=== PATIENT | female | born 1945 | race African-American/Black ===

== ENCOUNTER 2017-04-10 11:08 | Emergency (ER) | payer MEDICARE ==
[~2017-04-10] VITALS: Ht 170.2 cm; Wt 81.6 kg
[~2017-04-10 11:08] MED LIST: ACET-868 PO; DOCU50LI PO; LORA2TAB95 PO; PALI117D IM; RISP1TAB7 PO; RISP2TAB5 PO; ZOLP10TA6 PO; [UNRECOGNIZED DRUG - CODE] PO
--- NOTE | 2017-04-10 11:20 | NUR ---
BIB SON C/O LEFT TOENAIL PAIN AND PAIN TO R SIDE OF THE FACE S/P GLF Addendum: 04/10/17 at 1125 by TSERING BIB SON C/O LEFT TOENAIL PAIN AND PAIN TO R SIDE OF THE FACE S/P GLF. SABINA GUERRERO, VSPerfecto, AWAITING MD NESS.
[2017-04-10 12:20] LABS: BASOPHILS % (AUTO) 0.2 % (0.0-2.0); EOSINOPHILS # (AUTO) 0.1 /CMM (0.0-0.7); EOSINOPHILS % (AUTO) 0.8 % (0.0-6.0); HEMATOCRIT 32 % (33-45); HEMOGLOBIN 10.7 g/dL (11.5-14.8); LYMPHOCYTES # (AUTO) 1.5 /CMM (0.8-4.8); LYMPHOCYTES % (AUTO) 18.8 % (20.0-44.0); MEAN CORPUSCULAR HEMOGLOBIN 29 PG (26.0-33.0); MEAN CORPUSCULAR HGB CONC 34 g/dl (31.0-36.0); MEAN CORPUSCULAR VOLUME 85 fL (82-100); MONOCYTES # (AUTO) 0.5 /CMM (0.1-1.30); MONOCYTES % (AUTO) 6.7 % (2.0-12.0); NEUTROPHILS # (AUTO) 6.1 /CMM (1.8-8.9); NEUTROPHILS % (AUTO) 73.5 % (43.0-81.0); PLATELET COUNT (AUTO) 178 /CMM (150-450); RDW COEFFICIENT OF VARIATION 14.1 (11.5-15.0); RED BLOOD CELL COUNT(AUTO) 3.74 MIL/uL (4.0-5.2); WHITE BLOOD COUNT (AUTO) 8.2 K/uL (4.3-11.0)
[2017-04-10 12:28] LABS: CALCIUM, SERUM 8.5 mg/dL (8.5-10.1); CARBON DIOXIDE 30 mmol/L (21-32); CHLORIDE 107 mmol/L (98-107); CREATININE 0.8 mg/dL (0.6-1.3); GLUCOSE 90 mg/dL (74-106); POTASSIUM 3.8 mmol/L (3.5-5.1); SODIUM SERUM 140 mmol/L (136-145); UREA NITROGEN, BLOOD 9 mg/dL (7-18)
[2017-04-10 12:37] LABS: TROPONIN I < 0.017 ng/mL (0.00-0.056)
--- NOTE | 2017-04-10 13:48 | NUR ---
CALLED JOSSIE HERZOG FOR EVAL
--- NOTE | 2017-04-10 14:30 | NUR ---
Patient is resting comfortably in bed with eyes closed. Easily aroused. VSS
--- NOTE | 2017-04-10 16:53 | NUR ---
SW received a call from crisis machine buffer MINO De informing SW that pt's son needs some resources for caregivers and board and care. JAYLEN met with pt's son Boni Glass and gave him [employer] booklet that has a list of assisted living, and board and care facilities. JAYLEN also gave him Jeri's board and care contact . Pt. was residing at [facility] in [place].
--- NOTE | 2017-04-10 17:15 | NUR ---
Patient is resting comfortably in bed with eyes closed. Easily aroused. VSS
--- NOTE | 2017-04-10 20:12 | NUR ---
ASSUMED CARE OF PT AT THIS TIME. MOVED TO ROOM 10. NO S/S OF TRAUMA NOTED. RESP EVEN AND UNLABORED. PLACED ON MONITOR AND UPDATED OF PLANS OF CARE. STILL UNABLE TO REACH SON DESPITE ATTEMPTED CALLS MADE. APS ALREADY NOTIFIED.
--- NOTE | 2017-04-10 21:12 | NUR ---
RESTING WITH NO S/S OF DISTRESS. RESP EVEN AND UNLABORED. STILL MONITORED.
--- NOTE | 2017-04-10 22:12 | NUR ---
NO NEW CHANGES REPORTED OR NOTED. RESP EVEN AND UNLABORED.
--- NOTE | 2017-04-10 23:27 | NUR ---
RESTING WITH NO S/S OF DISTRESS. RESP EVEN AND UNLABORED.
--- NOTE | 2017-04-11 00:37 | NUR ---
REMAINS RESTING WITH EYES CLOSED BUT AROUSABLE. AND NOTED. RESP EVEN AND UNLABORED.
--- NOTE | 2017-04-11 02:16 | NUR ---
REPOSITIONED FOR COMFORT
--- NOTE | 2017-04-11 03:03 | NUR ---
NO NEW CHANGES FROM PREVIOUS ASSESSMENT. RESP EVEN AND UNALBORED.
--- NOTE | 2017-04-11 04:10 | NUR ---
Resting in bed with eyes closed. Easily aroused. VSS
--- NOTE | 2017-04-11 06:19 | NUR ---
REMAINS RESTING WITH NO S/S OF DISTRESS. RESP EVEN AND UNLABORED.
--- NOTE | 2017-04-11 06:32 | NUR ---
Spoke with daughter over the phone, Jose Antoniosother Daughter [phone], she states she lives in [place], is unable to pick her up.
--- NOTE | 2017-04-11 07:11 | NUR ---
BREAKFAST TRAY ORDERED. PT INFORMED
--- NOTE | 2017-04-11 09:07 | NUR ---
CALLED ALEJO PLASCENCIA FOR ASSISTANCE WITH PLACEMENT
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
--- NOTE | 2017-04-11 11:34 | NUR ---
JAYLEN received a call from officer Van informing JAYLEN that they are going to stop by the pt's son Boni's home and will call back JAYLEN if needed. JAYLEN received a call from Sundar in intake informing JAYLEN that she called pt's son Boni and he liked the referral JAYLEN gave him yesterday on [facility] board and care and will be here between 1:00PM -2:30PM to pick pt. up and transport pt. to the facility. JAYLEN contacted [facility] board and care and spoke with Jeri to confirm if pt's son did come by to see the facility and if pt. is accepted. Jeri confirmed with JAYLEN that pt. is accepted into [facility] located at [address] [place] [address] in [place]. [place] and that son will be picking up pt. after 2PM today and transport her the the facility. Officer Van from [employer] contacted JAYLEN and JAYLEN updated him with the aforementioned information stating son will be picking pt. up this afternoon. MINO Finch in ED was informed as well of discharge plan. Addendum: 04/11/17 at 1143 by ALEJO YORK Officer Van from [employer] informed JAYLEN to contact SHANNON again if pt's son is a no show again.
--- NOTE | 2017-04-11 14:16 | NUR ---
JAYLEN spoke with MINO Smith in ED to inquire if pt's son Boni came by and picked up pt. to take to the board and care as he stated he would around 1:30-2PM. MINO Smith informed JAYLEN that he has not come by as of yet. JAYLEN contacted pt's son Boni and left him a voicemail message informing him that he needs to excelsior picker the pt. as he stated he would around 1:30PM-2:00PM.
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
--- NOTE | 2017-04-11 16:30 | NUR ---
PATIENT DISCHARGED TO [facility]. PICKED UP BY YUKI [phone]. PATIENT'S VSS.
[2017-04-11 16:37] VITALS: BP 128/70
== END 2017-04-11 16:38 | disposition home or self-care (01) ==
LOC: ER 11:09
DX: S91.202A Unspecified open wound of left great toe with damage to nail, initial encounter (principal); D64.9 Anemia, unspecified; E11.9 Type 2 diabetes mellitus without complications; F20.0 Paranoid schizophrenia; W18.30XA Fall on same level, unspecified, initial encounter; Y92.89 Other specified places as the place of occurrence of the external cause; Y93.89 Activity, other specified; Y99.8 Other external cause status; F29 Unspecified psychosis not due to a substance or known physiological condition
CPT/HCPCS: 11730; 36415; 80048-TC; 84484-TC; 85025-TC; A4606; A6402; G0480; J3490; Z7610

== ENCOUNTER 2017-06-28 22:03 | Emergency (ER) | payer MEDICARE ==
[~2017-06-28] VITALS: Ht 170.2 cm; Wt 81.6 kg
[2017-06-28 23:16] VITALS: BP 147/69
[2017-06-29] MEDS ORDERED: IBUPROFEN 400 MG TABLET ONE (02:10)
[2017-06-29] MEDS ORDERED: IBUPROFEN 400 MG TABLET PO ONE (02:30)
== END 2017-06-29 02:15 | disposition home or self-care (01) ==
LOC: ER 22:06
DX: M54.5 Low back pain (principal); E11.9 Type 2 diabetes mellitus without complications; F20.9 Schizophrenia, unspecified
CPT/HCPCS: 99282; A4606; Z7610

== ENCOUNTER 2017-08-29 10:33 | Inpatient (IN) | payer MEDICARE ==
[~2017-08-29] VITALS: Ht 162.6 cm; Wt 73.9 kg
--- NOTE | 2017-08-29 10:40 | NUR ---
[id number], BRA [address]: BYSTANDER CALLED 911 STATING PT COULD HAVE A SEIZURE. PT DENIES Hx OF SEIZURES. patient denies syncopal episode. BS IN FIELD BY EMS 92. Resp is even and unlabored with nad noted. awaiting md for eval.
--- NOTE | 2017-08-29 10:50 | NUR ---
R AC G 18 IV STARTED, BLOOD TESTS DRAWN AND SEND TO LAB.
[2017-08-29] MEDS ORDERED: IV NS 0.9% 500 ML BAG IV ONE (11:00)
[2017-08-29 11:05] LABS: BASOPHILS # (AUTO) 0.1 /CMM (0.0-0.2); BASOPHILS % (AUTO) 0.9 % (0.0-2.0); EOSINOPHILS # (AUTO) 0.1 /CMM (0.0-0.7); EOSINOPHILS % (AUTO) 2.5 % (0.0-6.0); HEMATOCRIT 32 % (33-45); LYMPHOCYTES # (AUTO) 1.8 /CMM (0.8-4.8); LYMPHOCYTES % (AUTO) 30.3 % (20.0-44.0); MEAN CORPUSCULAR HEMOGLOBIN 29 PG (26.0-33.0); MEAN CORPUSCULAR HGB CONC 34 g/dl (31.0-36.0); MEAN CORPUSCULAR VOLUME 84 fL (82-100); MONOCYTES # (AUTO) 0.4 /CMM (0.1-1.30); MONOCYTES % (AUTO) 7.5 % (2.0-12.0); NEUTROPHILS # (AUTO) 3.5 /CMM (1.8-8.9); NEUTROPHILS % (AUTO) 58.8 % (43.0-81.0); PLATELET COUNT (AUTO) 216 /CMM (150-450); RDW COEFFICIENT OF VARIATION 15.6 (11.5-15.0); RED BLOOD CELL COUNT(AUTO) 3.82 MIL/uL (4.0-5.2); WHITE BLOOD COUNT (AUTO) 5.9 K/uL (4.3-11.0)
[2017-08-29] MEDS ORDERED: LEVE250T2 PO (11:07)
[2017-08-29 11:15] LABS: CALCIUM, SERUM 8.8 mg/dL (8.5-10.1); CARBON DIOXIDE 25 mmol/L (21-32); CHLORIDE 106 mmol/L (98-107); GLUCOSE 82 mg/dL (74-106); POTASSIUM 3.8 mmol/L (3.5-5.1); SODIUM SERUM 140 mmol/L (136-145); UREA NITROGEN, BLOOD 11 mg/dL (7-18)
[2017-08-29 11:19] LABS: INR 0.99 (0.85-1.15)
[2017-08-29 11:21] LABS: ALANINE AMINOTRANSFERASE 33 U/L (12-78); ALBUMIN 3.7 g/dL (3.4-5.0); ALKALINE PHOSPHATASE 89 U/L (46-116); ASPARTATE AMINOTRANSFERASE 30 U/L (15-37); BILIRUBIN,DIRECT 0.1 mg/dL (0.0-0.2); BILIRUBIN,TOTAL 0.7 mg/dL (0.2-1.0); TOTAL PROTEIN, SERUM 7.5 g/dL (6.4-8.2)
[2017-08-29 11:23] LABS: TROPONIN I < 0.017 ng/mL (0.00-0.056)
--- NOTE | 2017-08-29 11:45 | NUR ---
TELE 108
--- NOTE | 2017-08-29 12:05 | NUR ---
[facility] PAGED, ISRAEL WONG SENIOR ACCOUNT DIRECTOR
--- NOTE | 2017-08-29 12:34 | NUR ---
REPORT GIVEN TO MINO MASON FOR [facility] TELE 108-1.
[2017-08-29] MEDS ORDERED: MAGNESIUM HYDROXIDE 30 ML UDC PO PRN (13:00)
[2017-08-29] MEDS ORDERED: Z GUARD REMEDY 2 OZ OINT TP PRN (13:00)
[2017-08-29] MEDS ORDERED: ONDANSETRON HCL/PF 4 MG/2 ML VIAL IVP PRN (13:00)
[2017-08-29] MEDS ORDERED: HYDROCODONE/APAP 5/325MG 1 EACH TABLET PO PRN (13:00)
[2017-08-29] MEDS ORDERED: ACETAMINOPHEN 325 MG TABLET PO PRN (13:00)
[2017-08-29] MEDS ORDERED: MAG HYDROX/AL HYDROX/SIMETH 30 ML UDC PO PRN (13:00)
[2017-08-29 13:22] VITALS: BP 165/78
[2017-08-29] MEDS: LEVETIRACETAM (250 MG) 250 MG TABLET PO SCH ×2 (13:38→20:54)
--- NOTE | 2017-08-29 17:39 | NUR ---
PATIENT REFUSES TO HAVE ECHO STUDY DONE ON HER.
--- NOTE | 2017-08-29 19:15 | NUR ---
RN OPENING NOTES PT RESTING IN BED. NO COMPLAINTS OF PAIN, DISTRESS OR SOB AT THIS TIME. PT HAS A R AC #18 INTACT AND PATENT. PT IS TELE MONITORED AT SINUS RHYTHM RATE OF 72. WILL CONTINUE TO MONITOR. SAFETY PRECAUTIONS IN PLACE.
[2017-08-29 20:00] VITALS: BP 158/63
--- NOTE | 2017-08-29 20:54 | NUR ---
RN NOTES PT REFUSED KEPPRA 100MG. PT STATED SHE DID NOT WANT TO TAKE ANY MEDICATION. EXPLAINED TO PT THE IMPORTANCE OF MEDICATION COMPLIANCE.
[2017-08-30] VITALS: BP 158/69
[2017-08-30 04:00] VITALS: BP 145/64
--- NOTE | 2017-08-30 05:16 | NUR ---
RN NOTES PT REFUSED MORNING LAB DRAW. CHARGE NURSE ERNST SPOKE WITH PT AND PT CONTINUED TO REFUSE.
--- NOTE | 2017-08-30 06:44 | NUR ---
RN CLOSING NOTES PT AWAKE AND RESTING IN BED. NO COMPLAINTS OF PAIN, SOB OR DISTRESS. PT CONTINUES TO STATE THAT SHE DID NOT HAVE A SEIZURE. ALL PT NEEDS MET. PT SLEPT WELL THROUGHOUT THE NIGHT. PT HAS A R AC #18, INTACT AND PATENT. PT REFUSED MEDICATIONS AND LAB DRAW THIS MORNING. WILL ENDORSE TO DAY SHIFT NURSE. SAFETY PRECAUTIONS IN PLACE. WILL ENDORSE TO DAY SHIFT NURSE FOR CONTINUITY OF CARE.
--- NOTE | 2017-08-30 07:21 | NUR ---
PRESS TENDER SHORT GOODS OPENING NOTE RECEIVED BEDSIDE SBAR REPORT ON THE PATIENT. PATIENT IS A/O X3, FORGETFUL OF SPECIFIC DATES. ASLEEP, EASILY AWAKEN IN BED. BED IS LOCKED, IN LOWEST POSITION, SIDE RAILS UP X3. PATIENT IS AMBULATORY. NO S/S OF DISCOMFORT/PAIN. CHEST IS RISING EQUALLY BILATERALLY. PATIENT IS ON ROOM AIR. CALL LIGHT WITHIN REACH. EDUCATED THE PATIENT TO USE THE CALL LIGHT TO CALL FOR ASSISTANCE. VERBALIZED UNDERSTAND. PATIENT REFUSED MORNING LABS STATING SHE DOES NOT WANT TO BE AT THE HOSPITAL AND WANTS TO GO HOME. WILL DISCUSS WITH THE PHYSICIAN. WILL CONTINUE TO ASSES/MONITOR THROUGHOUT THE SHIFT.
[2017-08-30 08:00] VITALS: BP 156/83
[2017-08-30] MEDS: LEVETIRACETAM (250 MG) 250 MG TABLET PO SCH ×2 (09:00→22:19)
--- NOTE | 2017-08-30 09:06 | NUR ---
PATIENT REFUSED CHEST X-RAY. RN AWARE.
--- NOTE | 2017-08-30 09:15 | NUR ---
PATIENT REFUSED X RAY
--- NOTE | 2017-08-30 09:36 | NUR ---
PATIENT REFUSED MEDS
--- NOTE | 2017-08-30 09:37 | NUR ---
PATIENT REFUSED ECHO
--- NOTE | 2017-08-30 10:00 | NUR ---
PATIENT REFUSED CT. DR. DOMINGO NOTIFIED.
--- NOTE | 2017-08-30 11:44 | NUR ---
SPOKE TO RECRUITING MANAGER. PER RECRUITING MANAGER CRISIS TEAM EVALUATION IS REQUIRED. CALLING PCP TO OBTAIN AN ORDER FOR PSYCH EVALUATION
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
--- NOTE | 2017-08-30 19:00 | NUR ---
RN NOTES: RECEIVED ASLEEP ON BED, ON SEMI FOWLERS KEPT IN COMFORTABLE POSITION, SEIZURE AND UNIVERSAL PRECAUTION OBSERVE, BED LOW AND LOCKED, CALL LIGHT WITHIN REACH, FALL AND SAFETY PRECAUTION OBSERVED AT ALL TIME, ON ROOM AIR, NO SOB NOTED UPON CHANGE OF SHIFT.KEPT ON CLOSE VISUAL CHECK.
--- NOTE | 2017-08-30 19:41 | NUR ---
MS RN CLOSING NOTE GAVE BEDSIDE SBAR REPORT ON THE PATIENT. PATIENT IS A/O X3, FORGETFUL OF SPECIFIC DATES. ASLEEP, EASILY AWAKEN IN BED. BED IS LOCKED, IN LOWEST POSITION, SIDE RAILS UP X3. PATIENT IS AMBULATORY. NO S/S OF DISCOMFORT/PAIN. CHEST IS RISING EQUALLY BILATERALLY. PATIENT IS ON ROOM AIR. CALL LIGHT WITHIN REACH. EDUCATED THE PATIENT TO USE THE CALL LIGHT TO CALL FOR ASSISTANCE. VERBALIZED UNDERSTAND. PATIENT REFUSED SOME TESTS AND ALL THE MEDICATIONS THROUGHIOUT THE SHIFT. AGREED TO ECHO . ECHO REORDERED AND OBTAINED. RESULT PENDING. ENDORSED TO THE YOUTH DEVELOPMENT PROFESSIONAL NURSE FOR JUSTYN.
[2017-08-30 20:00] VITALS: BP 142/62
--- NOTE | 2017-08-30 22:34 | NUR ---
RN NOTES; AWAKE IN BETWEEN, DUE MEDICATION GIVEN,NO PAIN OR DISCOMFORT, CONTINUE IN CLOSE VISUAL CHECK.CALL LIGHT WITHIN EASY REACH.
[2017-08-30 22:37] VITALS: BP 142/62
[2017-08-31 04:00] VITALS: BP 131/58
--- NOTE | 2017-08-31 05:49 | NUR ---
RN NOTES: AWAKE IN BETWEEN, WATCHING TV, NO SEIZURE NOTED IN THE BRIM WELT SEWING MACHINE OPERATOR.WILL CONTINUE TO MONITOR.
--- NOTE | 2017-08-31 06:38 | NUR ---
RN NOTES: ENDORSED FOR CONTINUITY OF CARE, PATIENT IS STABLE AND NOT IN RESPIRATORY DISTRESS.
[2017-08-31 08:00] VITALS: BP 137/67
[2017-08-31] MEDS: LEVETIRACETAM (250 MG) 250 MG TABLET PO SCH (08:54)
--- NOTE | 2017-08-31 09:00 | NUR ---
RN NOTE PTAOX3, BUT FORGETFUL, WAS CALM EARLIER UPON CHANGE OF SHIFT REPORT, BUT LATER ON SHE REFUSED KEPPRA SCHEDULED AT 0900, STATING AGITATEDLY "HOW COME I AM GOING THROUGH THIS, YOU PEOPLE DO NOT LIKE ME, LEAVE ME ALONE." WILL MONITOR PT, CALL LIGHT WITHIN REACH.
--- NOTE | 2017-08-31 15:17 | NUR ---
PATIENT REFUSING TO GO TO [facility],ON HOLD PER CRISIS TEAM,DR. LOBATO NOTIFIED WILL GIVE ZYPREXA IM ORDERED,PT. PACING BACK AND FORTH.
[2017-08-31] MEDS ORDERED: OLANZAPINE 10 MG VIAL IM ONE (15:30)
--- NOTE | 2017-08-31 15:40 | NUR ---
RN NOTE ZYPREXA WAS NOT GIVEN BECAUSE PT AGREED TO GO TO [facility], PT TRANFERRED TO ROOM 213-1. REPORT GIVEN TO RN. DISCHARGE INSTRUCTIONS GIVEN TO RN AT [facility].
[2017-08-31] MEDS ORDERED: ALLA266C2 TP (15:45)
[2017-08-31] MEDS ORDERED: ONDA4TAB5 PO (15:45)
[2017-08-31] MEDS ORDERED: MAG30ORA PO (15:45)
[2017-08-31] MEDS ORDERED: MAGN400O6 PO (15:45)
[2017-08-31] MEDS ORDERED: ACET-868 PO (15:45)
[2017-08-31] MEDS ORDERED: HYDR-552 PO (15:45)
== END 2017-08-31 15:24 | DRG 307 ==
LOC: ER 10:34 → TELE1 12:29 → MEDSG1 08-30 09:06
PROVIDERS: ADMIT Nurse Practitioner Acute Care; ATTEND Nurse Practitioner Acute Care
DX: I35.0 Nonrheumatic aortic (valve) stenosis (principal); E11.9 Type 2 diabetes mellitus without complications; D63.8 Anemia in other chronic diseases classified elsewhere; F20.9 Schizophrenia, unspecified; G40.909 Epilepsy, unspecified, not intractable, without status epilepticus; J45.909 Unspecified asthma, uncomplicated; Z59.0 Homelessness; Z79.899 Other long term (current) drug therapy
CPT/HCPCS: 36415; 80048-TC; 80076-TC; 82962-TC; 84484-TC; 85025-TC; 85730-TC; 87081-TC; 93307-TC; A4606; G0480; J3490; J7040; Z7610

== ENCOUNTER 2017-08-31 15:30 | Inpatient (IN) | payer MEDICARE ==
[~2017-08-31] VITALS: Ht 170.2 cm; Wt 70.8 kg
--- NOTE | 2017-08-31 13:45 | NUR ---
GPS/RN PATIENT ADMITTED ON A 5150 HOLD FOR GD UNDER THE CARE OF DR DR LOBATO AND DR BURNHAM. BOTH DR'S AWARE OF NEW ADMISSION, DR BURNHAM AWARE OF NEED TO RECONCILE MEDICATIONS IN SYSTEM. PER HOLD, PATIENT WAS REFUSING MEDS, REFUSING TREATMENT, REFUSING CARE, CONFUSED AND RESPONDING TO INTERNAL STIMULI. UPON FACE TO FACE ASSESSMENT PATIENT IS ALERT X 2, AGITATED, ANXIOUS, DISORGANIZED AND CONFUSED AT TIMES, TALKING TO SELF, RESPONDING TO INTERNAL STIMULI AND UNCOOPERATIVE. REFUSED SKIN ASSESSMENT X 3, EXPLAINED RISKS AND BENEFITS. PATIENT DENIES SI/HI AT THIS TIME, VITAL SIGNS STABLE, IN ROOM AT THIS TIME, NO MAJOR DISTRESS NOTED, FALL PRECAUTIONS IMPLEMENTED, ALL NEEDS ATTENDED, WILL CONTINUE TO MONITOR Q 15 MIN FOR SAFETY AND BEHAVIOR. Addendum: 08/31/17 at 1859 by MARIVEL HERNANDEZ RN SEIZURE PRECAUTIONS IMPLEMENTED
[~2017-08-31 15:30] MED LIST changes: -ACET-868 PO; -DOCU50LI PO; +LEVE250T2 PO; -LORA2TAB95 PO; -PALI117D IM; -RISP1TAB7 PO; -RISP2TAB5 PO; -ZOLP10TA6 PO; -[UNRECOGNIZED DRUG - CODE] PO
[2017-08-31] MEDS ORDERED: MAG30ORA PO (15:45)
[2017-08-31] MEDS ORDERED: HYDR-552 PO (15:45)
[2017-08-31] MEDS ORDERED: ACET-868 PO (15:45)
[2017-08-31] MEDS ORDERED: ONDA4TAB5 PO (15:45)
[2017-08-31] MEDS ORDERED: MAGN400O6 PO (15:45)
[2017-08-31] MEDS ORDERED: ALLA266C2 TP (15:45)
[2017-08-31 16:00] VITALS: BP 160/77
[2017-08-31] MEDS ORDERED: MAG HYDROX/AL HYDROX/SIMETH 30 ML UDC PO PRN ×2 (16:00→19:00)
[2017-08-31] MEDS ORDERED: MAGNESIUM HYDROXIDE 30 ML UDC PO PRN ×2 (16:00→19:00)
[2017-08-31] MEDS ORDERED: LORAZEPAM 0.5 MG TABLET PO PRN (16:00)
[2017-08-31] MEDS ORDERED: TEMAZEPAM 7.5 MG CAPSULE PO PRN (16:00)
[2017-08-31] MEDS ORDERED: ACETAMINOPHEN 325 MG TABLET PO PRN ×2 (16:00→19:00)
[2017-08-31] MEDS ORDERED: Z GUARD REMEDY 2 OZ OINT TP PRN (19:00)
[2017-08-31] MEDS ORDERED: HYDROCODONE/APAP 5/325MG 1 EACH TABLET PO PRN (19:00)
--- NOTE | 2017-08-31 19:40 | NUR ---
PT REFUSED KEPPRA 1,000MG PO. PT STATED "I DON'T NEED MEDICATION, I'M OKAY". OFFER 3X. EXPLAIN THE RISK AND BENEFITS, PT STILL REFUSED. WILL CONTINUE TO MONITOR.
[2017-08-31 20:00] VITALS: BP 151/76
[2017-08-31] MEDS ORDERED: LEVETIRACETAM (250 MG) 250 MG TABLET PO ONE (20:05)
[2017-08-31] MEDS: LEVETIRACETAM (250 MG) 250 MG TABLET PO SCH ×2 (20:07→21:00)
[2017-09-01 08:08] VITALS: BP 123/68
[2017-09-01] MEDS: LEVETIRACETAM (250 MG) 250 MG TABLET PO SCH ×2 (09:00→20:43)
--- NOTE | 2017-09-01 13:01 | NUR ---
GPS/RN PT CONSISTENTLY REFUSING MEDS AND MRSA SWAB.
[2017-09-01 16:44] VITALS: BP 132/60
[2017-09-01] MEDS: risperiDONE 1 MG TABLET PO SCH (17:00)
[2017-09-01] MEDS: BENZTROPINE MESYLATE (1 MG) 1 MG TABLET PO SCH (17:00)
--- NOTE | 2017-09-01 18:30 | NUR ---
GPS/RN PT REFUSED 1700 MEDS TODAY OFFERED X3
[2017-09-01 19:51] VITALS: BP 126/63
--- NOTE | 2017-09-01 20:19 | NUR ---
RN GPS NOTES PT. REFUSED WEEKLY SKIN REASSESSMENT PICTURES , ENCOURAGED X3 STILL REFUSED.
--- NOTE | 2017-09-01 20:43 | NUR ---
GPS/RN NOTES PT REFUSED 2100 MEDS, KEPPRA 1000 MG TODAY OFFERED X3 , ENCOURAGED FOR MEDS EXPLIANED RISKS AND BENEFITS , STILL REFUSED
--- NOTE | 2017-09-02 04:37 | NUR ---
GPS/RN TITUSS PT REFUSED TO TAKE RESTORIL 7.5 MG, OFFERED FOR INSOMNIA.
[2017-09-02 08:00] VITALS: BP 140/70
[2017-09-02] MEDS: LEVETIRACETAM (250 MG) 250 MG TABLET PO SCH ×2 (08:41→21:00)
[2017-09-02] MEDS: risperiDONE 1 MG TABLET PO SCH ×2 (08:41→16:59)
[2017-09-02] MEDS: BENZTROPINE MESYLATE (1 MG) 1 MG TABLET PO SCH ×2 (08:41→16:59)
--- NOTE | 2017-09-02 09:00 | NUR ---
GPS/RN PATIENT REFUSED MORNING MEDICATION X 3, INCLUDING KEPPRA 1000 MG EXPLAINED RISKS AND BENEFITS, CONTINUED TO REFUSE, WILL CONTINUE TO ENCOURAGE TO COMPLY WITH MD REGIMEN.
[2017-09-02 16:00] VITALS: BP 148/62
--- NOTE | 2017-09-02 16:59 | NUR ---
GPS/RN PATIENT REFUSED 1700 MEDICATION X 3, EXPLAINED RISKS AND BENEFITS, CONTINUED TO REFUSE, WILL CONTINUE TO ENCOURAGE TO COMPLY WITH MD REGIMEN.
--- NOTE | 2017-09-02 19:30 | NUR ---
GPS RN NOTE, RECEIVED PATIENT AWAKE AND IN BED, NO S/S OR COMPLAINTS OF PAIN AT THIS TIME. PATIENT IS DISPLAYING NO S/S OF APPARENT DISTRESS AT THIS TIME. PATIENT BREATHING IS UNLABORED WITH EQUAL RISE AND FALL OF THE CHEST. PATIENT IS ALERT AND ORIENTED X 1-2 ON ROOM AIR WITH A SPO2 OF 98%. PATIENT IS REFUSING MEDICATION, DISORGANIZED, ANXIOUS, CONFUSED AT TIMES, PARANOID, AND NEEDS REORIENTATION. PATIENT DENIES SUICIDE IDEATIONS AND HOMICIDAL IDEATIONS AT THIS TIME. PATIENT ASSISTED WITH TURNING AND REPOSITIONING Q2HR AND PRN FOR COMFORT AND CIRCULATION. PATIENT HAS NO NEEDS AT THIS TIME. PATIENT EDUCATED ON THE USE OF THE CALL DELEON. PATIENT SIDE RAILS ARE UP X 2, BED IS LOCKED AND LOW, AND I WILL CONTINUE TO MONITOR THIS PATIENT Q 15 MIN WITH THE HELP OF STAFF.
[2017-09-02 19:47] VITALS: BP 152/77
--- NOTE | 2017-09-02 21:53 | NUR ---
GPS RN NOTE, PATIENT REFUSED TO TAKE KEPPRA 1000 MG PO Q12HR. OFFERED KEPPRA THREE TIMES AND STILL PATIENT REFUSED STATING, " I JUST DON'T WANT ANY MEDICATION ". EDUCATED THIS PATIENT ON THE RISKS AND BENEFITS OF TAKING AND REFUSING AFOREMENTIONED MEDICATION. WILL CONTINUE TO MONITOR THIS PATIENT.
[2017-09-03 08:00] VITALS: BP 144/68
[2017-09-03] MEDS: BENZTROPINE MESYLATE (1 MG) 1 MG TABLET PO SCH ×2 (08:55→17:00)
[2017-09-03] MEDS: risperiDONE 1 MG TABLET PO SCH ×2 (09:00→17:00)
[2017-09-03] MEDS: LEVETIRACETAM (250 MG) 250 MG TABLET PO SCH ×2 (09:02→20:57)
--- NOTE | 2017-09-03 15:55 | NUR ---
Initial Discharge Plan: Patient is currently homeless. Patient stated that she had been living with her son before. Patient asked SW to call son. SW called and spoke with patient's son, Boni [phone]. Boni stated that he is patient's DPOA. SW asked Boni to bring in / fax paperwork, which Boni agreed to. Boni stated that he had placed his mother in a board and care and then she eloped from facility. Boni stated she had been missing. Boni stated that maybe a locked SNF is best for his mom before she is able to return a board and care or a lower level of care. SW to follow up with MD. YORK to arrange safe discharge plan. When SW spoke with patient, patient stated she wanted an apartment. SW became agitated when discussing placement and screamed at SW to leave her alone.
[2017-09-03 16:00] VITALS: BP 138/69
[2017-09-03 20:22] VITALS: BP 120/60
--- NOTE | 2017-09-03 21:00 | NUR ---
GPS RN NOTE: PATIENT TOOK 500MG OF KEPPRA, REFUSED AND WASTED THE OTHER 500MG OF KEPPRA. EXPLAINED THE RISK AND BENEFITS X 3 ATTEMPTS, PATIENT STILL REFUSED, WILL CONTINUE TO MONITOR [id number] FOR SAFETY
[2017-09-04 08:00] VITALS: BP 125/61
[2017-09-04] MEDS: BENZTROPINE MESYLATE (1 MG) 1 MG TABLET PO SCH ×3 (08:29→17:00)
[2017-09-04] MEDS: LEVETIRACETAM (250 MG) 250 MG TABLET PO SCH ×3 (08:29→21:00)
[2017-09-04] MEDS: risperiDONE 1 MG TABLET PO SCH ×3 (08:30→17:00)
--- NOTE | 2017-09-04 14:18 | NUR ---
Discharge Planning: SW spoke with patient today. Patient was calm and cooperative. Patient stated that she "wanted to think about" a SNF placement. Patient seemed to be more open to the idea. SW to follow up with patient.
--- NOTE | 2017-09-04 14:19 | NUR ---
JAYLEN was informed by MINO Moore that APS worker Eugenio was at the unit for patient and provided the worker's card to JAYLEN. JAYLEN called and left a voicemail for APS worker Eugenio, . In the voicemail, JAYLEN provided her direct contact information.
[2017-09-04 16:02] VITALS: BP 148/68
[2017-09-04] MEDS: OLANZAPINE 10 MG VIAL IM PRN (17:45)
[2017-09-04 20:40] VITALS: BP_SYST 116; BP_SYST 147; BP_DIAS 55; BP_DIAS 65
[2017-09-05 08:00] VITALS: BP 144/65
[2017-09-05] MEDS: BENZTROPINE MESYLATE (1 MG) 1 MG TABLET PO SCH ×2 (09:00→16:48)
[2017-09-05] MEDS: risperiDONE 1 MG TABLET PO SCH ×3 (09:00→16:48)
[2017-09-05] MEDS: LEVETIRACETAM (250 MG) 250 MG TABLET PO SCH ×2 (09:00→21:00)
--- NOTE | 2017-09-05 09:00 | NUR ---
GPS/RN PATIENT REFUSED RESPERDAL 1 MG AND CONGENTIN 1 MG X 3, EXPLAINED RISKS AND BENEFITS, CONTINUES TO REFUSE, ADMINISTERED ZYPREXA 2.5 MG IM ORDERED FOR REFUSAL.
[2017-09-05] MEDS: OLANZAPINE 10 MG VIAL IM PRN ×3 (09:10→18:03)
--- NOTE | 2017-09-05 09:54 | NUR ---
Discharge Planning: SW attempted to speak with patient regarding discharge plan. Patient stated that she does not want to speak with SW. SW stated that it is important and spoke with patient about SNF placement. Patient remained quiet and did not offer a verbal response, even when prompted for one. Patient avoided eye contact with SW and remained mute after her initial statement.
--- NOTE | 2017-09-05 13:25 | NUR ---
GPS/RN PATIENT REFUSED RESPERDAL 1 MG X 3, EXPLAINED RISKS AND BENEFITS, CONTINUES TO REFUSE, ADMINISTERED ZYPREXA 2.5 MG IM ORDERED FOR REFUSAL.
--- NOTE | 2017-09-05 15:52 | NUR ---
RN-CO: NOTIFIED DR OVALLE, REGARDING PATIENT'S BLOOD PRESSURE 196/131,HR 85. AWAITING TO CALL BACK. PATIENT IS AWAKE, AMBULATORY DENIED DISCOMFORTS.
--- NOTE | 2017-09-05 16:00 | NUR ---
GPS/RN PER DR OVALLE, NEW ORDER- HYDRALAZINE 25 MG Q 6 HR PRN FOR BP > 160.
[2017-09-05] MEDS ORDERED: hydrALAZINE HCL 25 MG TABLET PO PRN (16:30)
--- NOTE | 2017-09-05 17:00 | NUR ---
GPS/RN PATIENT REFUSED TO HAVE HER BP TAKEN X 3, EXPLAINED RISKS AND BENEFITS HOWEVER PATIENT IS ADAMANTLY REFUSING MEDICATIONS AND TREATMENT. OFFERED HYDRALAZINE X 3 FOR BP OF 193/131, PATIENT REFUSED, EXPLAINED RISKS AND BENEFITS, WILL CONTINUE TO ENCOURAGE TO COMPLY WITH MD REGIMEN AND TREATMENTS. AT THIS TIME PATIENT IS ALERT X 2 AND HAS NO VISIBLE S/S OF DISTRESS, BREATHING EVEN AND UNLABORED, WILL CONTINUE TO MONITOR.
[2017-09-05 20:00] VITALS: BP 155/95
--- NOTE | 2017-09-05 22:06 | NUR ---
GPS/DELIMER NOTES: PT. REFUSED HS LEVETIRACETAM 1000MG PO ORDERED. OFFERED 3X. EXPLAINED RISK AND BENEFITS. PT. STILL REFUSED. WILL CONTINUE TO MONITOR.
[2017-09-06 08:21] VITALS: BP 133/61
[2017-09-06] MEDS: LEVETIRACETAM (250 MG) 250 MG TABLET PO SCH ×2 (09:00→21:00)
[2017-09-06] MEDS: risperiDONE 1 MG TABLET PO SCH (09:00)
[2017-09-06] MEDS: BENZTROPINE MESYLATE (1 MG) 1 MG TABLET PO SCH ×2 (09:00→16:50)
--- NOTE | 2017-09-06 09:27 | NUR ---
RN NOTE: PT. REFUSED 0900 MEDS. OFFERED 3X. EXPLAINED RISK AND BENEFITS. PT. STILL REFUSED. WILL CONTINUE TO MONITOR.
[2017-09-06] MEDS: OLANZAPINE 10 MG VIAL IM PRN (09:32)
--- NOTE | 2017-09-06 09:41 | NUR ---
RN NOTE: PATIENT RECEIVED ZYPREXIA 2.5MG IM.
--- NOTE | 2017-09-06 10:56 | NUR ---
Discharge Planning: SW attempted to speak with patient regarding discharge. Patient repeatedly stated, "I don't want to discharge." SW explained that patient is not being discharged today, but that eventually she will be. Patient continued to state, "I don't want to discharge." SW asked patient if she is interested in a SNF, a facility that will provided physical therapy, medication management etc. Juice again stated, "I dont want to discharge." SW to make another attempt later in the day.
[2017-09-06] MEDS: HALOPERIDOL LACTATE INJ 5 MG/ML VIAL IM PRN ×2 (12:42→16:50)
[2017-09-06] MEDS: HALOPERIDOL 5 MG TABLET PO SCH ×2 (12:42→16:50)
--- NOTE | 2017-09-06 12:42 | NUR ---
RN NOTE: PATIENT DENIED HALOPERIDOL PO. GAVE HALOPERIDOL 2.5MG IM.
--- NOTE | 2017-09-06 12:44 | NUR ---
JAYLEN made another attempt to contact patient's APS worker Eugenio, . JAYLEN provided her direct contact information in the voicemail.
--- NOTE | 2017-09-06 13:28 | NUR ---
SW got in contact with patient's APS worker Eugenio, and updated him on the case. He was not aware of some information regarding patient's relationship with son. SW to follow up regarding discharge plan.
[2017-09-06 16:00] VITALS: BP 120/65
--- NOTE | 2017-09-06 16:52 | NUR ---
RN NOTE: PATIENT REFUSED 1700 MEDS X 3. GAVE HALDOL 2.5 MG IM.
[2017-09-06 20:00] VITALS: BP 152/82
--- NOTE | 2017-09-06 21:48 | NUR ---
GPS RN NOTE, PATIENT REFUSED TO TAKE KEPPRA 1000 MG PO Q12HR. OFFERED KEPPRA THREE TIMES AND STILL PATIENT REFUSED STATING, " DON'T BE RUDE BY WAKING ME UP TO TAKE MEDICATION ". EDUCATED THIS PATIENT ON THE RISKS AND BENEFITS OF TAKING AND REFUSING AFOREMENTIONED MEDICATION. WILL CONTINUE TO MONITOR THIS PATIENT.
[2017-09-07 08:00] VITALS: BP 112/61
[2017-09-07] MEDS: LEVETIRACETAM (250 MG) 250 MG TABLET PO SCH ×2 (08:47→21:02)
[2017-09-07] MEDS: BENZTROPINE MESYLATE (1 MG) 1 MG TABLET PO SCH ×2 (08:47→16:55)
[2017-09-07] MEDS: HALOPERIDOL 5 MG TABLET PO SCH ×5 (08:47→21:01)
[2017-09-07] MEDS: HALOPERIDOL LACTATE INJ 5 MG/ML VIAL IM PRN ×3 (08:48→16:55)
--- NOTE | 2017-09-07 08:48 | NUR ---
RN NOTE: PATIENT REFUSED ALL 0900 MEDS. HALDOL IM SHOT WILL BE GIVEN.
--- NOTE | 2017-09-07 12:57 | NUR ---
RN NOTE: PATIENT REFUSED HALDOL 1200. HALDOL IM GIVEN.
[2017-09-07 16:00] VITALS: BP 144/68
--- NOTE | 2017-09-07 16:56 | NUR ---
RN NOTE: PATIENT REFUSED 1700 MEDS. HALDOL IM 2.5 MG GIVEN.
[2017-09-07 20:00] VITALS: BP 144/66
[2017-09-08 07:57] VITALS: BP 134/54
[2017-09-08] MEDS: BENZTROPINE MESYLATE (1 MG) 1 MG TABLET PO SCH ×2 (09:07→16:27)
[2017-09-08] MEDS: HALOPERIDOL 5 MG TABLET PO SCH ×4 (09:07→20:38)
[2017-09-08] MEDS: LEVETIRACETAM (250 MG) 250 MG TABLET PO SCH ×2 (09:08→20:38)
[2017-09-08 15:32] VITALS: BP 113/59
[2017-09-08 19:46] VITALS: BP 129/71
[2017-09-09 07:59] VITALS: BP 112/56
[2017-09-09] MEDS: BENZTROPINE MESYLATE (1 MG) 1 MG TABLET PO SCH ×2 (08:36→16:04)
[2017-09-09] MEDS: HALOPERIDOL 5 MG TABLET PO SCH ×3 (08:37→16:17)
[2017-09-09] MEDS: LEVETIRACETAM (250 MG) 250 MG TABLET PO SCH ×2 (08:38→21:46)
[2017-09-09] MEDS ORDERED: HALOPERIDOL DECANOATE IM 100 MG/ML AMPUL IM ONE (14:43)
[2017-09-09] MEDS ORDERED: VITAMINS A AND D 56.7 GM TUBE TP PRN (16:00)
[2017-09-09 16:06] VITALS: BP 151/69
--- NOTE | 2017-09-09 16:41 | NUR ---
Discharge Planning: JAYLEN faxed inquiry to [facility] [id number] / fax number [phone]
[2017-09-09] MEDS: CLOTRIMAZOLE 1% 15 GM TUBE TP SCH (17:00)
[2017-09-09 20:09] VITALS: BP 144/73
[2017-09-10 08:00] VITALS: BP 123/73
--- NOTE | 2017-09-10 08:05 | NUR ---
WOUND CARE CONSULT WOUND CARE RECEIVED CONSULT FOR BILATERAL FOOT PLANTAR DRY AND SCALY. WOUND CARE WILL DEFER TO DPM FOR CONSULT AND ALL TREATMENT PLANS AT THIS TIME. PODIATRY CURRENTLY FOLLOWING. PATIENT WITH LEVY AT 22.
[2017-09-10] MEDS: BENZTROPINE MESYLATE (1 MG) 1 MG TABLET PO SCH ×2 (09:00→17:00)
[2017-09-10] MEDS: CLOTRIMAZOLE 1% 15 GM TUBE TP SCH ×2 (09:00→17:00)
[2017-09-10] MEDS: HALOPERIDOL 5 MG TABLET PO SCH ×3 (09:00→17:00)
[2017-09-10] MEDS: HALOPERIDOL LACTATE INJ 5 MG/ML VIAL IM PRN ×5 (09:00→17:28)
[2017-09-10] MEDS: LEVETIRACETAM (250 MG) 250 MG TABLET PO SCH ×2 (09:00→21:22)
--- NOTE | 2017-09-10 09:00 | NUR ---
PATIENT REFUSED 0900 MEDS. HALDOL 2.5 MG.
--- NOTE | 2017-09-10 12:23 | NUR ---
PATIENT REFUSING 1200 HALDOL. HALDOL 2.5 MG GIVEN.
--- NOTE | 2017-09-10 15:03 | NUR ---
Discharge Planning: SW was informed by Joi from [facility] [address] [facility], [place] / fax number [phone] that patient was accepted to the facility.
--- NOTE | 2017-09-10 15:05 | NUR ---
Discharge Planning: SW spoke with patient today regarding discharge planning. Patient was sitting in a chair in her room. Her motor activity was very calm. Patient was cooperative. Patient stated that it was her birthday today. SW wished her a happy birthday and discussed the discharge. Patient seemed agreeable to discharging tomorrow to SNF.
[2017-09-10 16:00] VITALS: BP 121/63
--- NOTE | 2017-09-10 17:32 | NUR ---
RN NOTE: PATIENT REFUSED 1700 MEDS. HALDOL 2.5 MG GIVEN IM.
--- NOTE | 2017-09-10 19:30 | NUR ---
GPS RN NOTE, RECEIVED PATIENT AWAKE AND IN BED, NO S/S OR COMPLAINTS OF PAIN AT THIS TIME. PATIENT IS DISPLAYING NO S/S OF APPARENT DISTRESS AT THIS TIME. PATIENT BREATHING IS UNLABORED WITH EQUAL RISE AND FALL OF THE CHEST. PATIENT IS ALERT AND ORIENTED X 1-2 ON ROOM AIR WITH A SPO2 OF 96%. PATIENT IS REFUSING MEDICATION, DISORGANIZED, ANXIOUS, CONFUSED AT TIMES, PARANOID, AND NEEDS REORIENTATION. PATIENT DENIES SUICIDE IDEATIONS AND HOMICIDAL IDEATIONS AT THIS TIME. PATIENT ASSISTED WITH TURNING AND REPOSITIONING Q2HR AND PRN FOR COMFORT AND CIRCULATION. PATIENT HAS NO NEEDS AT THIS TIME. PATIENT EDUCATED ON THE USE OF THE CALL DELEON. PATIENT SIDE RAILS ARE UP X 2, BED IS LOCKED AND LOW, AND I WILL CONTINUE TO MONITOR THIS PATIENT Q 15 MIN WITH THE HELP OF STAFF.
[2017-09-10 20:00] VITALS: BP 149/75
[2017-09-11 08:16] VITALS: BP 129/64
[2017-09-11] MEDS: LEVETIRACETAM (250 MG) 250 MG TABLET PO SCH (08:29)
[2017-09-11] MEDS: BENZTROPINE MESYLATE (1 MG) 1 MG TABLET PO SCH (08:29)
[2017-09-11] MEDS: HALOPERIDOL 5 MG TABLET PO SCH (08:29)
[2017-09-11] MEDS: CLOTRIMAZOLE 1% 15 GM TUBE TP SCH (08:29)
--- NOTE | 2017-09-11 09:00 | NUR ---
RN-CO: gave an order to discontinue hold and discharge patient to [facility] SNF.She also ordered to discontinue Haldol Lactate inj., noted and carried out.
--- NOTE | 2017-09-11 09:27 | NUR ---
0900 MEDS REFUSED. OFFERED 3X. HALDOL 2.5 MG GIVEN.
[2017-09-11] MEDS: HALOPERIDOL LACTATE INJ 5 MG/ML VIAL IM PRN (09:31)
--- NOTE | 2017-09-11 10:56 | NUR ---
Discharge Note: Patient will be discharged to [facility] [address] [facility] via ambulance transportation arranged by social media project manager through [employer]. Patients son, Boni [phone], is aware and in agreement with the discharge plan. JAYLEN provided Boni with facility's address and phone number. Boni thanked JAYLEN. JAYLEN also notified patients APS worker Eugenio, of the discharge and placement. At the facility, patient will be under the care of software development specialist Dr. Soto [address], [place] [address] [phone]. Patient will also be followed by psychiatrist Dr. Pace [address], [place] [address] [phone] Addendum: 09/11/17 at 1110 by YOSELYN [facility] Ambulance trip # [id number]
--- NOTE | 2017-09-11 13:20 | NUR ---
DISCHARGE NOTE: PATIENT LEFT THE UNIT VIA AMBULANCE @1300. PATIENT IS MEDICALLY STABLE. AT DISCHARGE, PATIENT STATES SHE HAS NO SI/HI. DR LOBATO DISCONTINUED HOLD, GAVE DISCHARGE ORDER, AND RECONCILED MEDS. DR. LIU WAS MADE AWARE OF DISCHARGE AND RECONCILED MEDS. PATIENT REFUSED TO SIGN EXIT CARE PAPERS, SO 2 NURSES COSIGNED. EXIT CARE PAPERS WERE EXPLAINED AND GIVEN TO PATIENT. BELONGINGS WITH PATIENT UPON LEAVING. PATIENT REFUSED SKIN ASSESSMENT AND PICTURES. REPORT WAS GIVEN TO JULIAN AT [facility].
== END 2017-09-11 13:00 | DRG 885 ==
LOC: GPS 15:30
PROVIDERS: ADMIT Psychiatry & Neurology Psychosomatic Medicine; ATTEND Internal Medicine
DX: F20.9 Schizophrenia, unspecified (principal); G40.909 Epilepsy, unspecified, not intractable, without status epilepticus; D63.8 Anemia in other chronic diseases classified elsewhere; F29 Unspecified psychosis not due to a substance or known physiological condition; B35.3 Tinea pedis; I35.0 Nonrheumatic aortic (valve) stenosis; L85.3 Xerosis cutis; R55 Syncope and collapse; Z59.0 Homelessness; I70.90 Unspecified atherosclerosis; Z73.6 Limitation of activities due to disability; L60.3 Nail dystrophy
CPT/HCPCS: J1630; J1631; J3490; Z7610

== ENCOUNTER 2018-07-10 12:47 | Outpatient (CLI) | payer MEDICARE ==
[~2018-07-10 12:47] MED LIST changes: +ACET-868 PO; +ALLA266C2 TP; +HYDR-4384 PO; +MAG30ORA PO; +MAGN400O6 PO; +ONDA4TAB5 PO
== END 2018-07-10 23:59 | disposition home or self-care (01) ==
LOC: MSC 12:47
PROVIDERS: ATTEND Internal Medicine
DX: F20.9 Schizophrenia, unspecified (principal); G40.909 Epilepsy, unspecified, not intractable, without status epilepticus; I35.0 Nonrheumatic aortic (valve) stenosis

== ENCOUNTER 2018-07-31 12:07 | Outpatient (CLI) | payer MEDICARE ==
[~2018-07-31 12:07] MED LIST changes: +Hydralazine Hcl PO; +Hydrochlorothiazide PO; +Isosorbide Dinitrate PO
[2018-07-31 12:08] VITALS: BP 149/64
[2018-09-14] MEDS ORDERED: ASPI-869 PO ×2 (08:21→19:40)
[2018-09-14] MEDS ORDERED: ATOR40TA PO ×2 (08:21→19:40)
== END 2018-07-31 23:59 | disposition home or self-care (01) ==
LOC: MSC 12:07
PROVIDERS: ATTEND Nurse Practitioner Acute Care
DX: F20.9 Schizophrenia, unspecified (principal); G40.909 Epilepsy, unspecified, not intractable, without status epilepticus; I35.0 Nonrheumatic aortic (valve) stenosis; D64.9 Anemia, unspecified
CPT/HCPCS: G0463; Z7610

== ENCOUNTER 2018-08-28 15:33 | Outpatient (CLI) | payer MEDICARE ==
[2018-09-14] MEDS ORDERED: ASPI-869 PO ×2 (08:21→19:40)
[2018-09-14] MEDS ORDERED: ATOR40TA PO ×2 (08:21→19:40)
== END 2018-08-28 23:59 | disposition home or self-care (01) ==
LOC: MSC 15:33
PROVIDERS: ATTEND Nurse Practitioner Acute Care
DX: Z76.0 Encounter for issue of repeat prescription (principal); F20.0 Paranoid schizophrenia; I35.0 Nonrheumatic aortic (valve) stenosis; D64.9 Anemia, unspecified

== ENCOUNTER 2018-09-11 13:08 | Outpatient (CLI) | payer MEDICARE ==
[2018-09-11 13:12] VITALS: BP 147/70
[2018-09-11] MEDS ORDERED: HALO2TAB2 PO (13:59)
[2018-09-11] MEDS ORDERED: HALO50VI4 IM (14:04)
[2018-09-14] MEDS ORDERED: ASPI-869 PO ×2 (08:21→19:40)
[2018-09-14] MEDS ORDERED: ATOR40TA PO ×2 (08:21→19:40)
== END 2018-09-11 23:59 | disposition home or self-care (01) ==
LOC: MSC 13:08
PROVIDERS: ATTEND Nurse Practitioner Acute Care
DX: R53.83 Other fatigue (principal); Z87.440 Personal history of urinary (tract) infections; I35.0 Nonrheumatic aortic (valve) stenosis; D64.9 Anemia, unspecified; G40.909 Epilepsy, unspecified, not intractable, without status epilepticus; F20.0 Paranoid schizophrenia

== ENCOUNTER 2018-09-11 13:56 | Inpatient (IN) | payer MEDICARE ==
[~2018-09-11] VITALS: Ht 172.7 cm; Wt 72.7 kg
--- NOTE | 2018-09-11 13:56 | NUR ---
PT BIB SON SENT HERE FROM CLINIC,WEAKNESS X 3DAYS, PT IS AAOX3, NOT IN RESPIRATORY DISRTRESS, HOOKED TO MONITOR, KEPT RESTED AND COMFORTABLE, WILL CONTINUE TO MONITOR.
[2018-09-11] MEDS ORDERED: HALO2TAB2 PO (13:59)
[2018-09-11] MEDS ORDERED: HALO50VI4 IM (14:04)
--- NOTE | 2018-09-11 14:05 | NUR ---
IV LINE INSERTED, LABS DRAWNED AND SENT TO LAB.
--- NOTE | 2018-09-11 14:22 | NUR ---
DR. GARRIDO AT BEDSIDE FOR EVAL.
[2018-09-11 14:32] LABS: BASOPHILS # (AUTO) 0.1 /CMM (0.0-0.2); BASOPHILS % (AUTO) 0.7 % (0.0-2.0); EOSINOPHILS % (AUTO) 0.5 % (0.0-6.0); HEMATOCRIT 38 % (33-45); LYMPHOCYTES # (AUTO) 1.4 /CMM (0.8-4.8); LYMPHOCYTES % (AUTO) 17.4 % (20.0-44.0); MEAN CORPUSCULAR HGB CONC 35 g/dl (31.0-36.0); MEAN CORPUSCULAR VOLUME 86 fL (82-100); MONOCYTES # (AUTO) 0.5 /CMM (0.1-1.30); MONOCYTES % (AUTO) 6.5 % (2.0-12.0); NEUTROPHILS % (AUTO) 74.9 % (43.0-81.0); PLATELET COUNT (AUTO) 206 /CMM (150-450); RED BLOOD CELL COUNT(AUTO) 4.37 MIL/uL (4.0-5.2)
--- NOTE | 2018-09-11 14:33 | NUR ---
PT IS WHEELED TO CT SCAN VIA [facility].
--- NOTE | 2018-09-11 14:37 | NUR ---
DESIZING MACHINE BACK TENDER/MED RECON UPDATED HOME MEDICATION INFORMATION OBTAINED FROM [facility].
[2018-09-11 14:57] LABS: POTASSIUM 4.4 mmol/L (3.5-5.1)
[2018-09-11 15:01] LABS: CALCIUM, SERUM 9.1 mg/dL (8.5-10.1); CARBON DIOXIDE 27 mmol/L (21-32); CHLORIDE 104 mmol/L (98-107); CREATININE 1.3 mg/dL (0.6-1.3); GLUCOSE 121 mg/dL (74-106); SODIUM SERUM 140 mmol/L (136-145); UREA NITROGEN, BLOOD 20 mg/dL (7-18)
[2018-09-11 15:07] LABS: ALANINE AMINOTRANSFERASE 21 U/L (12-78); ALBUMIN 3.7 g/dL (3.4-5.0); ALKALINE PHOSPHATASE 58 U/L (46-116); ASPARTATE AMINOTRANSFERASE 28 U/L (15-37); BILIRUBIN,DIRECT 0.1 mg/dL (0.0-0.2); BILIRUBIN,TOTAL 0.7 mg/dL (0.2-1.0); TOTAL PROTEIN, SERUM 7.4 g/dL (6.4-8.2)
[2018-09-11 15:12] LABS: SERUM AMMONIA 12 umol/L (11-32)
[2018-09-11 15:13] LABS: THYROID STIMULATING HORMONE 0.006 uIU/mL (0.358-3.74)
[2018-09-11] MEDS ORDERED: ASPIRIN 81 MG TAB.CHEW PO ONE (16:00)
[2018-09-11] MEDS ORDERED: ASPIRIN 81 MG TAB.CHEW ONE (16:07)
--- NOTE | 2018-09-11 16:13 | NUR ---
PT REFUSED TO TAKE HER MEDICATION AND GIVE URINE SPECIMEN DR. GARRIDO AWARE.
--- NOTE | 2018-09-11 16:43 | NUR ---
REPORT GIVEN TO MINO BLAIR FOR JUSTYN.
--- NOTE | 2018-09-11 16:45 | NUR ---
TEXT DR. STRONG FOR MRI APPROVAL.
--- NOTE | 2018-09-11 16:46 | NUR ---
DR. STRONG TEXT BACK, ON HOLD FOR NOW, HE WILL LET US KNOW.
[2018-09-11 17:10] VITALS: BP 135/72
--- NOTE | 2018-09-11 17:10 | NUR ---
TELE/RN NOTE THE PATIENT IS RECEIVED ON A GURNEY. ASSISTED TO BED. ALERT AND ORIENTED X1. DENIES SOB. RESPIRATION REGULAR AND UNLABORED. DENIES PAIN. ABLE TO MAKE NEEDS KNOWN VERBALLY. NOTED TO GAVE CLEAR SPEECH. RAC G 18 PATENT AND SALINE LOCKED. GAVE ORIENTATION TO THE UNIT/ROOM. BED LOW AND LOCKED. SIDE RAILS UP X2. CALL LIGHT WITHIN REACH. WILL CONTINUE TO MONITOR.
[2018-09-11] MEDS: BLOOD SUGAR DIAGNOSTIC 1 EACH STRIP IN SCH ×2 (17:30→21:00)
[2018-09-11] MEDS ORDERED: BLOOD SUGAR DIAGNOSTIC 1 EACH STRIP IN SCH (18:00)
--- NOTE | 2018-09-11 19:02 | NUR ---
TELE/RN NOTE THE PATIENT ALERT AND ORIENTED X1. DENIES SOB. IN ROOM AIR AND SATURATION IS AT 95%. RESPIRATION REGULAR AND UNLABORED. DENIES PAIN. THE PATIENT IN STABLE CONDITION. NO DECLINE IN SPEECH, MOBILITY NOTED. RAC G 18 PATENT AND SALINE LOCKED. BED LOW AND LOCKED. SIDE RAILS UP X2. CALL LIGHT WITHIN REACH. BED ALARM ON. WILL ENDORSE TO PRIVACY COMPLIANCE MANAGER.
[2018-09-11 20:00] VITALS: BP 119/55
[2018-09-11] MEDS: ENOXAPARIN SODIUM 40 MG/0.4 ML DISP.SYRIN SQ SCH (21:00)
[2018-09-11] MEDS: ATORVASTATIN 40 MG TABLET PO SCH (21:06)
[2018-09-12 00:56] VITALS: BP 150/60
[2018-09-12 04:36] VITALS: BP 142/60
[2018-09-12 05:00] LABS: BASOPHILS % (AUTO) 0.7 % (0.0-2.0); EOSINOPHILS % (AUTO) 1.8 % (0.0-6.0); HEMATOCRIT 34 % (33-45); HEMOGLOBIN 11.9 g/dL (11.5-14.8); LYMPHOCYTES % (AUTO) 35.5 % (20.0-44.0); MEAN CORPUSCULAR HGB CONC 35 g/dl (31.0-36.0); MEAN CORPUSCULAR VOLUME 85 fL (82-100); MONOCYTES # (AUTO) 0.5 /CMM (0.1-1.30); MONOCYTES % (AUTO) 9.2 % (2.0-12.0); NEUTROPHILS % (AUTO) 52.8 % (43.0-81.0); PLATELET COUNT (AUTO) 181 /CMM (150-450); RED BLOOD CELL COUNT(AUTO) 4.03 MIL/uL (4.0-5.2); WHITE BLOOD COUNT (AUTO) 5.7 K/uL (4.3-11.0)
[2018-09-12 05:10] LABS: CALCIUM, SERUM 8.7 mg/dL (8.5-10.1); CARBON DIOXIDE 29 mmol/L (21-32); CHLORIDE 102 mmol/L (98-107); CREATININE 1.1 mg/dL (0.6-1.3); GLUCOSE 85 mg/dL (74-106); POTASSIUM 4.3 mmol/L (3.5-5.1); SODIUM SERUM 139 mmol/L (136-145); UREA NITROGEN, BLOOD 21 mg/dL (7-18)
[2018-09-12 05:15] LABS: CHOLESTEROL 185 mg/dL (<200); HDL CHOLESTEROL 81 mg/dL (40-60); LDL 91 mg/dL (0-99); TRIGLYCERIDES 35 mg/dL (30-150)
[2018-09-12] MEDS: BLOOD SUGAR DIAGNOSTIC 1 EACH STRIP IN SCH ×4 (06:04→21:41)
--- NOTE | 2018-09-12 06:12 | NUR ---
FIBERGLASS TUBE MOLDER NOTES AWAKE & RESPONSIVE. NOT IN ANY DISTRESS. NO SOB NOTED. DENIES ANY PAIN OR DISCOMFORT AT THIS TIME. ON TELE SR @ 70 WITH IV-HL PATENT & INTACT. MONITORED ACCORDINGLY. CALL LIGHT WITHIN REACH. BED IN LOWEST POSITION. SR UP X 3 WITH BED ALARM ON FOR SAFETY. WILL ENDORSE TO NEXT SHIFT.
--- NOTE | 2018-09-12 07:30 | NUR ---
TELE/RN NOTE THE PATIENT IS RECEIVED IN BED AWAKE. ALERT AND ORIENTED X2. IN ROOM AIR AND DENIES SOB. RESPIRATION REGULAR AND UNLABORED. DENIES PAIN. THE PATIENT IN NO APPARENT DISTRESS. SPEECH IS CLEAR, NO DECLINE IN MOBILITY NOTED. RAC G 18 PATENT AND SALINE LOCKED. BED LOW AND LOCKED. SIDE RAILS UP X3. CALL LIGHT WITHIN REACH. WILL CONTINUE TO MONITOR.
[2018-09-12 08:00] VITALS: BP 116/61
[2018-09-12] MEDS: ASPIRIN EC 325 MG TABLET.DR PO SCH (08:48)
[2018-09-12] MEDS: PANTOPRAZOLE 40 MG TABLET.DR PO SCH (08:49)
--- NOTE | 2018-09-12 12:51 | NUR ---
TRIED TAKING THE PATIENT TO MRI BUT THE PATIENT IS REFUSING TO GO NOW (12.30PM) SAID TRY LATER, NURSE ALEJANDRINA AND SOFTWARE CONTROLS ENGINEER IS AWARE.
--- NOTE | 2018-09-12 14:23 | NUR ---
2ND TRY AT 2.15PM , REFUSED AGAIN , NURSE IS AWARE OF IT.
--- NOTE | 2018-09-12 14:53 | NUR ---
MS/RN NOTE THE PATIENT REFUSED MRI X2. EXPLAINED RISKS AND BENEFITS BUT THE PATIENT STILL REFUSED. SON DONALD TRIED TO CONVINCE THE PATIENT BUT THE PATIENT STILL REFUSED.
--- NOTE | 2018-09-12 15:11 | NUR ---
Social work note: greenhouse worker received social work consult regarding patient recent stroke. greenhouse worker arrived at patient bedside and introduced self and purpose of visit. Patient was laying in bed and appeared with disheveled appearance, flat affect and congruent mood. Patient was open for conversation. Patient was AxOx3. Patient states she did not know why she was in the hospital and kept saying "MRI". greenhouse worker facilitated conversation about patient recent stroke and provided patient with emotional and supportive counseling. greenhouse worker discussed patient living situation and patient states she lives in an apartment with her son, Boni [[phone]]. Patient states she is able to provide self-care needs including daily grooming. Patient states Boni helps her with cooking and cleaning. Patient has a history of paranoid schizophrenia and has had GPS admissions per EMR. Patient did not appear to be exhibiting any psychotic symptoms, but did appear confused. greenhouse worker offered patient "stroke support group" resources, but patient refused. Patient then stated "that is enough". Prior to leaving room, social organization professor informed patient that social organization professor is available to her if she needs continued emotional and supportive counseling. greenhouse worker will remain available to patient as needed. Per social work evaluation, patient may benefit from [facility] placement prior to returning home.
--- NOTE | 2018-09-12 15:43 | NUR ---
MS/RN NOTE PER PATIENT REQUEST RECEIVED ORDER FROM DR JIMMIE PLASENCIA PUREED TEXTURES DIET. THE ORDER IS READ BACK, VERIFIED. NOTED AND CARRIED OUT.
--- NOTE | 2018-09-12 15:46 | NUR ---
MS/RN NOTE RECEIVED ORDER FROM DR SAMUEL FOR PHYSICIAN CONSULT WITH DR LOBATO DUE TO PATIENT HX OF SCHIZOPHRENIA. THE ORDER IS READ BACK, VERIFIED. NOTED AND CARRIED OUT.
[2018-09-12 16:00] VITALS: BP 134/60
--- NOTE | 2018-09-12 18:06 | NUR ---
MS/RN NOTE THE PATIENT IS ALERT AND ORIENTED X2. DENIES PAIN. IN ROOM AIR AND SATURATION IN ROOM AIR IS AT 97%. DENIES SOB. THE PATIENT IN NO APPARENT DISTRESS. RAC G 18 PATENT AND SALINE LOCKED. GO0D AND GENTLE SKIN CARE RENDERED. KEPT CLEAN AND COMFORTABLE. ALL NEEDS ATTENDED. BED LOW AND LOCKED. SIDE RAILS UP X3. BED ALARM ON. CALL LIGHT WITHIN REACH. WILL CONTINUE TO MONITOR.
--- NOTE | 2018-09-12 19:15 | NUR ---
MS RN NOTE RECEIVED PATIENT IN BED AWAKE AND AXO X2. PT DENIES PAIN AT THIS TIME. NO S/S OF ACUTE DISTRESS OR SOB NOTED. RAC 18G AND SALINE LOCKED. SAFETY MEASURES IN PLACE WITH BED LOW AND LOCKED AND SIDE RAILS UP X3 WITH BED ALARM ON. CALL LIGHT WITHIN REACH. WILL CONTINUE TO MONITOR.
[2018-09-12 20:00] VITALS: BP 105/43
--- NOTE | 2018-09-12 20:00 | NUR ---
MS RN NOTE NOTED PT #18G SL IN RAC WAS DISLODGED AND IS NO LONGER IN ARM.
[2018-09-12] MEDS: ENOXAPARIN SODIUM 40 MG/0.4 ML DISP.SYRIN SQ SCH (21:41)
[2018-09-12] MEDS: ATORVASTATIN 40 MG TABLET PO SCH (21:41)
[2018-09-13 06:25] LABS: BASOPHILS % (AUTO) 0.3 % (0.0-2.0); EOSINOPHILS % (AUTO) 1.1 % (0.0-6.0); HEMATOCRIT 34 % (33-45); HEMOGLOBIN 11.9 g/dL (11.5-14.8); LYMPHOCYTES # (AUTO) 0.6 /CMM (0.8-4.8); LYMPHOCYTES % (AUTO) 7.3 % (20.0-44.0); MEAN CORPUSCULAR HGB CONC 35 g/dl (31.0-36.0); MEAN CORPUSCULAR VOLUME 84 fL (82-100); MONOCYTES # (AUTO) 0.4 /CMM (0.1-1.30); MONOCYTES % (AUTO) 4.1 % (2.0-12.0); NEUTROPHILS # (AUTO) 7.6 /CMM (1.8-8.9); NEUTROPHILS % (AUTO) 87.2 % (43.0-81.0); PLATELET COUNT (AUTO) 169 /CMM (150-450); RED BLOOD CELL COUNT(AUTO) 3.99 MIL/uL (4.0-5.2); WHITE BLOOD COUNT (AUTO) 8.7 K/uL (4.3-11.0)
[2018-09-13] MEDS: BLOOD SUGAR DIAGNOSTIC 1 EACH STRIP IN SCH ×4 (06:35→21:16)
[2018-09-13 06:48] LABS: ALANINE AMINOTRANSFERASE 18 U/L (12-78); ALBUMIN 3.3 g/dL (3.4-5.0); ALKALINE PHOSPHATASE 53 U/L (46-116); ASPARTATE AMINOTRANSFERASE 25 U/L (15-37); BILIRUBIN,TOTAL 0.6 mg/dL (0.2-1.0); CALCIUM, SERUM 8.7 mg/dL (8.5-10.1); CARBON DIOXIDE 28 mmol/L (21-32); CHLORIDE 103 mmol/L (98-107); GLUCOSE 88 mg/dL (74-106); MAGNESIUM 1.8 mg/dL (1.8-2.4); PHOSPHORUS 5.9 mg/dL (2.5-4.9); SODIUM SERUM 137 mmol/L (136-145); TOTAL PROTEIN, SERUM 6.6 g/dL (6.4-8.2); UREA NITROGEN, BLOOD 15 mg/dL (7-18)
--- NOTE | 2018-09-13 06:59 | NUR ---
MS RN NOTE PATIENT IN BED ASLEEP BUT EASILY AWOKEN VERBALLY OR BY TOUCH. PT AXO X4 AND ABLE TO MAKE NEEDS KNOWN. PT DENIES PAIN AT THIS TIME. NO S/S OF ACUTE DISTRESS OR SOB NOTED. NO IV ACCESS AT THIS TIME, PT REFUSED FOR ME TO PUT IN X3. SAFETY MEASURES IN PLACE WITH BED LOW AND LOCKED AND SIDE RAILS UP X3 WITH BED ALARM ON. CALL LIGHT WITHIN REACH. WILL ENDORSE TO ONCOMING NURSE FOR CONTINUATION OF CARE.
--- NOTE | 2018-09-13 07:33 | NUR ---
MS RN OPENING NOTES PATIENT IS A/OX4, IN NO APPARENT DISTRESS. BED RAILS UP X2. BED IS LOCKED AND LOWERED. CALL LIGHT WITHIN REACH. WILL CONTINUE TO MONITOR.
[2018-09-13 08:00] VITALS: BP 113/59
[2018-09-13] MEDS: PANTOPRAZOLE 40 MG TABLET.DR PO SCH (08:11)
[2018-09-13] MEDS: ASPIRIN EC 325 MG TABLET.DR PO SCH (08:11)
[2018-09-13 16:00] VITALS: BP 118/56
--- NOTE | 2018-09-13 19:15 | NUR ---
MS RN NOTE RECEIVED PATIENT IN BED AWAKE AND AXO X3. PT DENIES PAIN AT THIS TIME. NO S/S OF ACUTE DISTRESS OR SOB NOTED. SAFETY MEASURES IN PLACE WITH BED LOW AND LOCKED AND SIDE RAILS UP X3 WITH BED ALARM ON. CALL LIGHT WITHIN REACH. WILL CONTINUE TO MONITOR.
[2018-09-13 20:00] VITALS: BP 101/51
[2018-09-13 20:13] LABS: APPEARANCE,URINE CLEAR (CLEAR); BILIRUBIN,URINE NEGATIVE (NEGATIVE); BLOOD, URINE NEGATIVE Ery/uL (NEGATIVE); COLOR,URINE YELLOW (YELLOW); KETONES,URINE NEGATIVE (NEGATIVE); LEUKOCYTE ESTERASE ,URINE 1+ (NEGATIVE); NITRITE, URINE NEGATIVE (NEGATIVE); PROTEIN,URINE NEGATIVE (NEGATIVE); UGLUCOSE NEGATIVE (NEGATIVE); UROBILINOGEN,URINE 0.2 EU/dL (0.2)
[2018-09-13 20:56] LABS: BACTERIA,URINE Rare /HPF (None Seen); RBC,URINE 0-2 /HPF (0-2); SQUAMOUS EPITHELIAL CELL,UR 0-2 /HPF (None Seen)
[2018-09-13] MEDS: ATORVASTATIN 40 MG TABLET PO SCH (21:17)
[2018-09-13] MEDS: ENOXAPARIN SODIUM 40 MG/0.4 ML DISP.SYRIN SQ SCH (21:21)
--- NOTE | 2018-09-14 06:29 | NUR ---
MS RN NOTE PT IN BED SLEEPING BUT EASILY AWOKEN VERBALLY OR BY TOUCH. PT AXO X3. PT DENIES PAIN AT THIS TIME. BREATHING EVEN AND UNLABORED WITH NO S/S OF ACUTE DISTRESS OR SOB NOTED. SAFETY MEASURES IN PLACE WITH BED LOW AND LOCKED AND SIDE RAILS UP X3 WITH BED ALARM ON. CALL LIGHT WITHIN REACH. WILL ENDORSE TO ONCOMING NURSE FOR CONTINUATION OF CARE.
[2018-09-14 06:37] LABS: BASOPHILS % (AUTO) 0.6 % (0.0-2.0); EOSINOPHILS % (AUTO) 1.8 % (0.0-6.0); HEMATOCRIT 33 % (33-45); HEMOGLOBIN 11.8 g/dL (11.5-14.8); LYMPHOCYTES # (AUTO) 1.4 /CMM (0.8-4.8); LYMPHOCYTES % (AUTO) 17.2 % (20.0-44.0); MEAN CORPUSCULAR HGB CONC 36 g/dl (31.0-36.0); MEAN CORPUSCULAR VOLUME 84 fL (82-100); MONOCYTES # (AUTO) 0.6 /CMM (0.1-1.30); MONOCYTES % (AUTO) 6.9 % (2.0-12.0); NEUTROPHILS # (AUTO) 5.9 /CMM (1.8-8.9); NEUTROPHILS % (AUTO) 73.5 % (43.0-81.0); PLATELET COUNT (AUTO) 162 /CMM (150-450); RED BLOOD CELL COUNT(AUTO) 3.91 MIL/uL (4.0-5.2)
[2018-09-14] MEDS: BLOOD SUGAR DIAGNOSTIC 1 EACH STRIP IN SCH ×3 (06:37→17:46)
[2018-09-14 06:48] LABS: CALCIUM, SERUM 8.6 mg/dL (8.5-10.1); CARBON DIOXIDE 29 mmol/L (21-32); CHLORIDE 104 mmol/L (98-107); CREATININE 0.9 mg/dL (0.6-1.3); GLUCOSE 86 mg/dL (74-106); MAGNESIUM 1.9 mg/dL (1.8-2.4); PHOSPHORUS 3.7 mg/dL (2.5-4.9); POTASSIUM 4.2 mmol/L (3.5-5.1); SODIUM SERUM 140 mmol/L (136-145); UREA NITROGEN, BLOOD 10 mg/dL (7-18)
[2018-09-14 08:00] VITALS: BP 110/55
--- NOTE | 2018-09-14 08:00 | NUR ---
MS RN RECEIVED ON BED, AWAKE,ALERT,ORIENTED X3,NOT IN ANY FORM OF DISTRESS, RESPIRATIONS EVEN AND UNLABORED,NO SOB N0TED, LUNGS ARE CLEAR,ABDOMEN SOFT,POSITIVE BOWEL SOUNDS,DENIES PAIN AT THIS TIME,ALL NEEDS ATTENDED.
[2018-09-14] MEDS ORDERED: ASPI-869 PO ×2 (08:21→19:40)
[2018-09-14] MEDS ORDERED: ATOR40TA PO ×2 (08:21→19:40)
[2018-09-14] MEDS: ASPIRIN EC 325 MG TABLET.DR PO SCH (08:49)
[2018-09-14] MEDS: PANTOPRAZOLE 40 MG TABLET.DR PO SCH (08:49)
--- NOTE | 2018-09-14 09:00 | NUR ---
MS HERZOG BREAKFAST SERVED,DUE MEDS GIVEN,TOLERATED WELL.
--- NOTE | 2018-09-14 10:00 | NUR ---
MS RN WAS SEEN BY DR. SAMUEL FOR DISCHARGE,BUT [facility] WANTS HER TO GO TO [facility].
[2018-09-14] MEDS ORDERED: HALOPERIDOL 5 MG TABLET PO SCH (12:00)
--- NOTE | 2018-09-14 12:00 | NUR ---
MS RN NO BED AT [facility], SO PATIENT MIGHT WELL STAY HERE OVERFLOW.
[2018-09-14 16:00] VITALS: BP 111/57
--- NOTE | 2018-09-14 18:00 | NUR ---
MS RN BS - 213 - NO COVERAGE GIVEN, PATIENT HAS NO INSULIN COVERAGE AND ONE THING MORE PATIENT ALREADY ATE HER DINNER.NO S/S OF HYPERGLYCEMIA.
--- NOTE | 2018-09-14 18:30 | NUR ---
MS RN BS - 213 - NO COVERAGE FOR PT, AND PATIENT IS REFUSING MEDS, PATIENT ALREADY ATE HER BREAKFAST.
--- NOTE | 2018-09-14 18:35 | NUR ---
MS RN PATIENT REFUSED TO TAKE PICTURES OF SCAR AT LEFT AND RIGHT SHOULDER.
--- NOTE | 2018-09-14 18:43 | NUR ---
MS SFDC ARCHITECT PATIENT TO [facility], WILL ENDORSE TO NEXT SHIFT FOR ADMISSION AND MEDS TO BE GIVEN, DUE TO PATIENT IS STILL NOT IN THE SYSTEM.
[2018-09-14] MEDS ORDERED: ENOX40DI SQ (19:40)
[2018-09-14] MEDS ORDERED: PANT40TA2 PO (19:40)
[2018-09-14] MEDS ORDERED: BLOO-668 IN (19:40)
== END 2018-09-14 19:30 | DRG 65 ==
LOC: ER 13:59 → TELE 16:18 → MED 09-12 10:15
PROVIDERS: ADMIT Student in an Organized Health Care Education/Training Program; ATTEND Student in an Organized Health Care Education/Training Program
DX: I63.9 Cerebral infarction, unspecified (principal); F20.0 Paranoid schizophrenia; D63.8 Anemia in other chronic diseases classified elsewhere; I10 Essential (primary) hypertension; I35.2 Nonrheumatic aortic (valve) stenosis with insufficiency; F29 Unspecified psychosis not due to a substance or known physiological condition; E03.9 Hypothyroidism, unspecified; Z91.14 Patient's other noncompliance with medication regimen
CPT/HCPCS: 36415; 70450-TC; 71045-TC; 80048-TC; 80053-TC; 80061-TC; 80076-TC; 80305; 81000-TC; 82140-TC; 82962-TC; 83605-TC; 83735-TC; 83880; 84100-TC; 84439-TC; 84443-TC; 84484-TC; 85025-TC; 85652-TC; 85730-TC; 87040-TC; 87081-TC; 87086-TC; 92611-TC; 93307-TC; 93880-TC; 97530-TC; G0378; J1650

== ENCOUNTER 2018-09-14 18:09 | Inpatient (IN) | payer MEDICARE ==
[~2018-09-14] VITALS: Ht 167.6 cm; Wt 74.8 kg
[~2018-09-14 18:09] MED LIST changes: -ACET-868 PO; -ALLA266C2 TP; +ASPI-869 PO; +ATOR40TA PO; +HALO2TAB2 PO; +HALO50VI4 IM; -HYDR-4384 PO; -Hydralazine Hcl PO; -Hydrochlorothiazide PO; -Isosorbide Dinitrate PO; -LEVE250T2 PO; -MAG30ORA PO; -MAGN400O6 PO; -ONDA4TAB5 PO
[2018-09-14] MEDS ORDERED: PANT40TA2 PO (19:40)
[2018-09-14] MEDS ORDERED: ENOX40DI SQ (19:40)
[2018-09-14] MEDS ORDERED: BLOO-668 IN (19:40)
[2018-09-14] MEDS ORDERED: ASPI-869 PO (19:40)
[2018-09-14] MEDS ORDERED: ATOR40TA PO (19:40)
--- NOTE | 2018-09-14 21:00 | NUR ---
CORE MAN INITIAL NOTES ADMIT PT FROM [facility] FLOOR [facility] OVERFLOW. DX OF PARANOID /SCHIZOPHRENIA. PT IS ALERT ORIENTED , WAS PLACED ON 5150 GRAVELY DISABLED. PATIENT DISORGANIZED AND PARANOID . ABLE TO AMBULATE BUT NEEDS STANDBY FOR SAFETY. NO SIGNS OF ANY DISCOMFORT OR DISTRESS NOTED. SKIN WARM AND DRY TO TOUCH, SOME SCABS NOTED ON HER RIGHT AND LEFT SHOULDER. AWARE WHERE SHE AT AND ASKING TO BE KEPT IN THE HOSPITAL FOR NOW. SITTER AT THE BEDSIDE FOR SAFETY WILL CONTINUE MONITORING.
[2018-09-14 22:00] VITALS: BP 107/51
[2018-09-14] MEDS ORDERED: LORAZEPAM 0.5 MG TABLET PO PRN (22:30)
[2018-09-14] MEDS ORDERED: MAG HYDROX/AL HYDROX/SIMETH 30 ML UDC PO PRN (22:30)
[2018-09-14] MEDS ORDERED: MAGNESIUM HYDROXIDE 30 ML UDC PO PRN (22:30)
[2018-09-14] MEDS ORDERED: ACETAMINOPHEN 325 MG TABLET PO PRN (22:30)
[2018-09-14] MEDS ORDERED: ENOXAPARIN SODIUM 40 MG/0.4 ML DISP.SYRIN SQ SCH (23:30)
[2018-09-15] MEDS: TEMAZEPAM 7.5 MG CAPSULE PO PRN (00:01)
[2018-09-15] MEDS: ATORVASTATIN 40 MG TABLET PO SCH ×2 (00:01→21:57)
[2018-09-15] MEDS: BLOOD SUGAR DIAGNOSTIC 1 EACH STRIP IN SCH ×5 (00:09→22:00)
--- NOTE | 2018-09-15 00:10 | NUR ---
GPS OVF/BYPRODUCTS OPERATOR NOTES BLOOD SUGAR 128, NO COVERAGES AT THIS TIME. ORDERED. NO SIGNS OF HYPO GLYCEMIA NOTED.
[2018-09-15] MEDS: ENOXAPARIN SODIUM 40 MG/0.4 ML DISP.SYRIN SQ SCH ×2 (00:19→21:56)
--- NOTE | 2018-09-15 06:09 | NUR ---
GPS TRANSCRIPTION NOTES PT WOKE UP CALMED AND QUIET , BLOOD SUGAR CHECKED DONE 87 NO SIGNS OF HYPO GLYCEMIA NOTED. NO COVERAGES AT THIS TIME.
--- NOTE | 2018-09-15 07:04 | NUR ---
GPS OVERLFOW STATISTICS TUTOR CLOSING NOTES PT WOKE UP AND WATCHING TV, STABLE REINIER THE NIGHT AND SLEPT WELL, NO SIGNS OF ANY AGITATION NOTED. KEPT HER WARM AND COMFORTABLE AT ALL TIMES. SITTER AT THE BEDSIDE FOR SAFETY. WILL ENDORSE TO AM NURSE FOR CONTINUITY OF CARE.
[2018-09-15 07:56] LABS: CHOLESTEROL 164 mg/dL (<200); HDL CHOLESTEROL 84 mg/dL (40-60); LDL 70 mg/dL (0-99); TRIGLYCERIDES 38 mg/dL (30-150)
[2018-09-15] MEDS ORDERED: ENOXAPARIN SODIUM 40 MG/0.4 ML DISP.SYRIN SQ SCH ×2 (10:00→23:30)
--- NOTE | 2018-09-15 10:05 | NUR ---
SW was contacted by Joan ([phone]), from [facility], who stated that the case assembler had sent a referral for this pt when she was on the medical floor and that she was accepted to [facility]. SW stated that she would discuss this placement option with both the pt's psychiatrist and with the pt's DPOA. SW stated that she would be in contact if the pt will be discharged to their facility.
[2018-09-15] MEDS: BENZTROPINE MESYLATE (1 MG) 1 MG TABLET PO SCH ×2 (14:34→21:57)
--- NOTE | 2018-09-15 15:02 | NUR ---
JAYLEN called the pt's son and DPOA, Boni ([phone]), and left a message on his voicemail stating that she would like to discuss the pt's case with him and asked for a call back.
--- NOTE | 2018-09-15 15:03 | NUR ---
Initial Discharge Plan: Pt currently resides with her son and DPOA, Boni ([phone]), in an apartment located at [address] [place] [address]. Per pt, she would not like to return to her home and would like to be placed in a facility. SW will work with the pt and the MD regarding appropriate discharge planning. SW will form a safe and proper discharge.
--- NOTE | 2018-09-15 15:16 | NUR ---
pt transferred to [facility] room 219A via w/c not in distress.
--- NOTE | 2018-09-15 15:19 | NUR ---
called [facility] to notify about transfer, left message on voicePublicEngines answering machine
[2018-09-15 16:00] VITALS: BP 149/62
[2018-09-15] MEDS: HALOPERIDOL 5 MG TABLET PO SCH ×2 (17:39→21:57)
[2018-09-15 20:16] VITALS: BP 125/50
[2018-09-16] MEDS: BLOOD SUGAR DIAGNOSTIC 1 EACH STRIP IN SCH ×4 (07:30→22:50)
[2018-09-16 08:00] VITALS: BP 108/57
[2018-09-16] MEDS: HALOPERIDOL 5 MG TABLET PO SCH ×2 (09:00→22:02)
[2018-09-16] MEDS: BENZTROPINE MESYLATE (1 MG) 1 MG TABLET PO SCH ×2 (09:00→22:02)
[2018-09-16] MEDS: ASPIRIN EC 81 MG TABLET.DR PO SCH (09:00)
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
--- NOTE | 2018-09-16 13:51 | NUR ---
JAYLEN called the pt's son and DPOA, Boni ([phone]), and informed him that the current discharge plan is that the pt be transferred to [facility] tomorrow for further stabilization as well as physical therapy. It was explained to the pt's son and DPOA that the pt stated she did not want to return home at this time and that at the facility the pt will be under the care of Dr. Pace, her current psychiatrist. JAYLEN also explained that the pt's insurance would cover the stay. Pt's son and DPOA accepted the placement.
--- NOTE | 2018-09-16 15:37 | NUR ---
SW was contacted by Joan ([phone]), from [facility], who stated that the pt is no longer accepted to their facility because when the son was called he became angry and refused to allow the pt to be accepted. SW will follow up with the son to explain the situation and receive more information.
--- NOTE | 2018-09-16 15:51 | NUR ---
JAYLEN called the pt's son and DPOA, Boni ([phone]), and informed him that the facility is no longer accepting the pt once they spoke to him. He stated that he does not want the pt to be admitted anymore and that she was doing well on the "organic supplements" that he was giving her. JAYLEN asked him what those were called and her refused to answer. He stated that he will continue to take care of the pt at home and that her being placed in a SNF is not an emergency at this time.
[2018-09-16 16:00] VITALS: BP 117/54
[2018-09-16 21:59] VITALS: BP 119/55
[2018-09-16] MEDS: TEMAZEPAM 7.5 MG CAPSULE PO PRN (22:02)
[2018-09-16] MEDS: ATORVASTATIN 40 MG TABLET PO SCH (22:02)
[2018-09-17] MEDS: BLOOD SUGAR DIAGNOSTIC 1 EACH STRIP IN SCH ×4 (07:30→22:13)
[2018-09-17 08:00] VITALS: BP 113/51
[2018-09-17] MEDS: BENZTROPINE MESYLATE (1 MG) 1 MG TABLET PO SCH ×2 (08:12→22:01)
[2018-09-17] MEDS: ASPIRIN EC 81 MG TABLET.DR PO SCH (08:14)
[2018-09-17] MEDS: HALOPERIDOL 5 MG TABLET PO SCH ×2 (08:14→22:01)
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
--- NOTE | 2018-09-17 14:05 | NUR ---
JAYLEN called the pt's son and DPOA, Boni ([phone]), and left a message on his voicemail stating that the pt will not be discharged home today because she needs more time in the hospital for further stabilization.
--- NOTE | 2018-09-17 14:17 | NUR ---
Pt's son and DPOA, Boni ([phone]), called the SW and stated that he received her message on his voicemail. He stated that he understands that the pt requires further stabilization in a medical setting which will ensure her safety. He also stated that he would like the medical doctor to give him a call regarding the pt's medications and the SW stated that she would pass the message along.
[2018-09-17 16:00] VITALS: BP 130/57
[2018-09-17 20:25] VITALS: BP 140/64
[2018-09-17] MEDS: ATORVASTATIN 40 MG TABLET PO SCH (22:01)
[2018-09-17] MEDS: ENOXAPARIN SODIUM 40 MG/0.4 ML DISP.SYRIN SQ SCH ×2 (22:02)
[2018-09-17] MEDS: TEMAZEPAM 7.5 MG CAPSULE PO PRN (23:31)
--- NOTE | 2018-09-18 05:12 | NUR ---
ENDING NOTES: MS. ANGELES WAS IN BED WHEN I CAMS ON DUTY. ALERT AND KNOWS i AM HER NURSE. SHE IS SOFT SPOKEN WILL FOLLOW COMMAND TAKES HER PO MEDS W/O A PROBLEM. AMBULATES TO THE BATHROOM STEADY ON HER LEGS
[2018-09-18] MEDS: BLOOD SUGAR DIAGNOSTIC 1 EACH STRIP IN SCH ×2 (07:34→12:02)
[2018-09-18 08:00] VITALS: BP 150/91
[2018-09-18] MEDS: BENZTROPINE MESYLATE (1 MG) 1 MG TABLET PO SCH ×2 (08:13→22:00)
[2018-09-18] MEDS: HALOPERIDOL 5 MG TABLET PO SCH ×2 (08:13→22:01)
[2018-09-18] MEDS: ASPIRIN EC 81 MG TABLET.DR PO SCH (08:13)
--- NOTE | 2018-09-18 11:35 | NUR ---
JAYLEN called Adult Protective Services ([phone]) and attempted to follow up on the report but was unable to speak to a someone due to the long wait and was unable to leave a message for a call back. JAYLEN will make another attempt.
[2018-09-18 16:00] VITALS: BP 120/55
[2018-09-18 20:00] VITALS: BP 127/63
[2018-09-18] MEDS: ATORVASTATIN 40 MG TABLET PO SCH (22:01)
[2018-09-18] MEDS: ENOXAPARIN SODIUM 40 MG/0.4 ML DISP.SYRIN SQ SCH (22:02)
[2018-09-19 08:00] VITALS: BP 124/59
[2018-09-19] MEDS: HALOPERIDOL 5 MG TABLET PO SCH ×2 (08:54→20:40)
[2018-09-19] MEDS: ASPIRIN EC 81 MG TABLET.DR PO SCH (08:54)
[2018-09-19] MEDS: BENZTROPINE MESYLATE (1 MG) 1 MG TABLET PO SCH ×2 (08:55→20:40)
--- NOTE | 2018-09-19 10:05 | NUR ---
GPS RN-NOTES PATIENT REQUESTING TYLENOL FOR BACK PAIN. TYLENOL 650MG P.O GIVEN PRN ORDER.
--- NOTE | 2018-09-19 13:06 | NUR ---
SW called Adult Protective Services ([phone]) and was told that the SW cannot ask for any information on the case that she made a report for due to confidentiality. JAYLEN stated that she wanted to find out if discharging the pt back home would be a safe discharge plan due to the report that was made.
--- NOTE | 2018-09-19 13:11 | NUR ---
JAYLEN called Maurice ([phone]), APS Cna Caregiver, and left a message on her voicemail stating that she would like to know who the JAYLEN assigned to the case that she made a report for is.
[2018-09-19 20:00] VITALS: BP 128/61
[2018-09-19] MEDS: ATORVASTATIN 40 MG TABLET PO SCH (21:10)
[2018-09-19] MEDS: ENOXAPARIN SODIUM 40 MG/0.4 ML DISP.SYRIN SQ SCH (21:12)
[2018-09-20 08:00] VITALS: BP 102/59
[2018-09-20] MEDS: BENZTROPINE MESYLATE (1 MG) 1 MG TABLET PO SCH ×2 (08:42→20:25)
[2018-09-20] MEDS: HALOPERIDOL 5 MG TABLET PO SCH ×2 (08:43→21:52)
[2018-09-20] MEDS: ASPIRIN EC 81 MG TABLET.DR PO SCH (08:43)
[2018-09-20 10:38] LABS: BASOPHILS # (AUTO) 0.1 /CMM (0.0-0.2); BASOPHILS % (AUTO) 0.9 % (0.0-2.0); EOSINOPHILS % (AUTO) 1.4 % (0.0-6.0); HEMATOCRIT 29 % (33-45); HEMOGLOBIN 10.5 g/dL (11.5-14.8); LYMPHOCYTES # (AUTO) 1.6 /CMM (0.8-4.8); LYMPHOCYTES % (AUTO) 18.4 % (20.0-44.0); MEAN CORPUSCULAR HGB CONC 36 g/dl (31.0-36.0); MEAN CORPUSCULAR VOLUME 84 fL (82-100); MONOCYTES # (AUTO) 0.6 /CMM (0.1-1.30); MONOCYTES % (AUTO) 6.9 % (2.0-12.0); NEUTROPHILS # (AUTO) 6.5 /CMM (1.8-8.9); NEUTROPHILS % (AUTO) 72.4 % (43.0-81.0); PLATELET COUNT (AUTO) 174 /CMM (150-450); RED BLOOD CELL COUNT(AUTO) 3.48 MIL/uL (4.0-5.2); WHITE BLOOD COUNT (AUTO) 8.9 K/uL (4.3-11.0)
[2018-09-20 10:54] LABS: CALCIUM, SERUM 8.7 mg/dL (8.5-10.1); CARBON DIOXIDE 26 mmol/L (21-32); CHLORIDE 106 mmol/L (98-107); CREATININE 1.1 mg/dL (0.6-1.3); GLUCOSE 89 mg/dL (74-106); POTASSIUM 3.9 mmol/L (3.5-5.1); SODIUM SERUM 142 mmol/L (136-145); UREA NITROGEN, BLOOD 20 mg/dL (7-18)
[2018-09-20 16:00] VITALS: BP 149/69
[2018-09-20 20:00] VITALS: BP 144/61
[2018-09-20] MEDS: ATORVASTATIN 40 MG TABLET PO SCH (21:52)
[2018-09-20] MEDS: ENOXAPARIN SODIUM 40 MG/0.4 ML DISP.SYRIN SQ SCH (22:09)
[2018-09-21 08:00] VITALS: BP 104/51
[2018-09-21] MEDS: ASPIRIN EC 81 MG TABLET.DR PO SCH (08:58)
[2018-09-21] MEDS: HALOPERIDOL 5 MG TABLET PO SCH ×2 (08:58→21:20)
[2018-09-21] MEDS: BENZTROPINE MESYLATE (1 MG) 1 MG TABLET PO SCH ×2 (08:58→21:20)
[2018-09-21 16:00] VITALS: BP 112/60
[2018-09-21 20:00] VITALS: BP 109/56
[2018-09-21] MEDS: ATORVASTATIN 40 MG TABLET PO SCH (21:19)
[2018-09-22] MEDS: ENOXAPARIN SODIUM 40 MG/0.4 ML DISP.SYRIN SQ SCH ×2 (00:01→23:24)
[2018-09-22 08:00] VITALS: BP 109/52
[2018-09-22] MEDS: BENZTROPINE MESYLATE (1 MG) 1 MG TABLET PO SCH ×2 (09:06→20:15)
[2018-09-22] MEDS: ASPIRIN EC 81 MG TABLET.DR PO SCH (09:06)
[2018-09-22] MEDS: HALOPERIDOL 5 MG TABLET PO SCH ×2 (09:07→20:15)
[2018-09-22 16:00] VITALS: BP 136/58
--- NOTE | 2018-09-22 16:18 | NUR ---
JAYLEN called Adult Protective Services ([phone]) and was redirected to the Service line where the SW was told that her contact information will be given to the social work instructor on the case so that the case can be discussed. JAYLEN was told that she can expect a call tomorrow regarding the report that was made.
[2018-09-22 20:21] VITALS: BP 146/52
[2018-09-22] MEDS: ATORVASTATIN 40 MG TABLET PO SCH (21:16)
--- NOTE | 2018-09-22 21:19 | NUR ---
C/O GASTRIC UPSET, MAALOX 30 ML PO GIVEN.
[2018-09-23 08:00] VITALS: BP 148/69
[2018-09-23] MEDS: BENZTROPINE MESYLATE (1 MG) 1 MG TABLET PO SCH ×2 (08:17→21:22)
[2018-09-23] MEDS: ASPIRIN EC 81 MG TABLET.DR PO SCH (08:17)
[2018-09-23] MEDS: HALOPERIDOL 5 MG TABLET PO SCH ×3 (08:18→21:22)
--- NOTE | 2018-09-23 09:00 | NUR ---
GPS RN AM NOTES PATIENT IS ALERT AND ORIENTED X 2. PATIENT IS CALM AND COOPERATIVE. PATIENTS VITAL SIGNS ARE WNL. PATIENTS MORNING MEDICATIONS GIVEN. PATIENT IS AMBULATORY. PATIENT ATE 100% OF HER BREAKFAST. PATIENT IS COMFORTABLE. ALL SAFETY PRECAUTIONS HAVE BEEN TAKEN, WILL CONTINUE TO MONITOR PATIENT CONTINUOUSLY.
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
--- NOTE | 2018-09-23 13:28 | NUR ---
JAYLEN called the pt's son and DPOA, Boni ([phone]), and informed him that the pt will be discharged sometime this week. He stated that he would be willing to pick her up and then stated that before she discharges, he would like to speak to the medical doctor and get a CBD prescription. JAYLEN stated that she does not know if his request will be granted but that she would pass along the message. The pt's DPOA then mentioned that he will not be able to remain at home at all times and is unsure of what to do with the pt at that time. JAYLEN stated that the shelter facility would be the most appropriate option for the pt and he stated that he was not willing with the share of cost. JAYLEN stated she would call him back when there is more information to provide.
--- NOTE | 2018-09-23 14:22 | NUR ---
JAYLEN called Adult Protective Services ([phone]) and was redirected to the Service line and asked to speak to a supervisor waterworks. The rolling mill operator helper stated that none of the supervisors are available at this time and took down the SW's information to have someone call back.
[2018-09-23 16:00] VITALS: BP_SYST 136; BP_SYST 144; BP_DIAS 59
--- NOTE | 2018-09-23 18:14 | NUR ---
PATIENT IS ALERT AND ORIENTED X2. SHE IS CALM, COOPERATIVE, AND FOLLOWS COMMANDS. PATIENTS VITALS ARE WNL. SHE TOOK HER MEDICATIONS WITHOUT ANY PROBLEM. PATIENT IS AMBULATORY AND PARTICIPATED IN THE ACTIVITY ROOM. PATIENT IS COMFORTABLE AND ALL SAFETY MEASURES HAVE BEEN TAKEN. WILL CONTINUE TO MONITOR PATIENT AND WILL REPORT TO UNIX CONSULTANT ABOUT CONTINUITY OF CARE.
--- NOTE | 2018-09-23 19:28 | NUR ---
GPS RN NOTE, RECEIVED PATIENT AWAKE AND IN BED NO S/S OR COMPLAINTS OF PAIN AT THIS TIME. PATIENT IS DISPLAYING NO S/S OF APPARENT DISTRESS AT THIS TIME. PATIENT BREATHING IS UNLABORED WITH EQUAL RISE AND FALL OF THE CHEST. PATIENT IS ALERT AND ORIENTED X 2 ON ROOM AIR WITH A SPO2 0F 95%. PATIENT IS MED COMPLIANT, DISORGANIZED, ANXIOUS, COOPERATIVE, CONFUSED AT TIME, ATTENTION SEEKING, AND NEEDS REORIENTATION. PATIENT DENIES SUICIDE AND HOMICIDAL IDEATIONS AT THIS TIME. PATIENT ASSISTED WITH TURNING AND REPOSITIONING Q2HR AND PRN FOR COMFORT AND CIRCULATION. PATIENT HAS NO NEEDS AT THIS TIME. PATIENT EDUCATED ON THE USE OF THE CALL DELEON. PATIENT BED SIDE RAILS ARE UP X 2 FOR SAFETY, BED IS LOCKED AND LOW. WILL CONTINUE TO MONITOR AND MAINTAIN SAFETY Q15 MIN WITH THE HELP OF STAFF.
[2018-09-23 20:37] VITALS: BP 120/55
[2018-09-23] MEDS: ATORVASTATIN 40 MG TABLET PO SCH (21:22)
[2018-09-24] MEDS: ENOXAPARIN SODIUM 40 MG/0.4 ML DISP.SYRIN SQ SCH (00:50)
[2018-09-24 08:00] VITALS: BP 154/69
[2018-09-24] MEDS: HALOPERIDOL 5 MG TABLET PO SCH ×2 (09:08→13:42)
[2018-09-24] MEDS: BENZTROPINE MESYLATE (1 MG) 1 MG TABLET PO SCH (09:08)
[2018-09-24] MEDS: ASPIRIN EC 81 MG TABLET.DR PO SCH (09:09)
--- NOTE | 2018-09-24 11:38 | NUR ---
JAYLEN faxed a referral to [facility] with attention to EDWARD and Sid to the fax number: [phone].
--- NOTE | 2018-09-24 12:11 | NUR ---
EDWARD ([phone]), staff development coordinator from [facility], contacted the and stated that the pt was accepted to their facility.
--- NOTE | 2018-09-24 12:26 | NUR ---
GPS/RN-NOTES RECEIVED VERBAL ORDER FROM DR. LOBATO TO D/C ATIVAN 0.25MG P.O TID. NOTED AND CARRIED OUT.
[2018-09-24] MEDS ORDERED: LORAZEPAM 0.5 MG TABLET PO SCH (13:00)
--- NOTE | 2018-09-24 13:29 | NUR ---
JAYLEN called the pt's son and DPOA, Boni ([phone]), and left a message on his voicemail stating that she would like a call back to discuss the pt's case.
--- NOTE | 2018-09-24 15:39 | NUR ---
JAYLEN called the pts son/DPOA, Boni ([phone]), and left a message for him on his voicemail like he had requested earlier stating that the pt will be discharged today at 4:45PM to [facility].
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
--- NOTE | 2018-09-24 16:40 | NUR ---
GPS/RN-NOTES PATIENT DISCHARGE TO [facility]AC[facility] TODAY. DR. LOBATO AND DR. SAMUEL AWARE WITH ORDERS ORDERS.REPORT WAS GIVEN TO ALEXANDER ( FACILITY BANK MESSENGER). PATIENT DID NOT VERBALIZE SI/HI ,DENIES VISUAL/AUDITORY HALLUCINATIONS AT THE TIME OF DISCHARGE. PATIENT LEFT THE UNIT IN STABLE CONDITION ALERT ORIENTED X2,AMBULATORY WITH STEADY GAIT. PICKUP BY AMBULANCE VIA GURNEY WITH TWO STAFF ASSIST. PATIENT LEFT WITH ALL BELONGINGS. NV. SW NOTES PATIENT SON/ANAIDONALD AWARE OF THE DISCHARGE.
== END 2018-09-24 16:40 | DRG 885 ==
LOC: GPSOV 18:09 → GPS 09-15 15:26
PROVIDERS: ADMIT Psychiatry & Neurology Psychosomatic Medicine; ATTEND Psychiatry & Neurology Psychosomatic Medicine
DX: F20.0 Paranoid schizophrenia (principal); I63.9 Cerebral infarction, unspecified; D63.8 Anemia in other chronic diseases classified elsewhere; Z59.0 Homelessness; F09 Unspecified mental disorder due to known physiological condition; E03.9 Hypothyroidism, unspecified; Z73.6 Limitation of activities due to disability; I35.0 Nonrheumatic aortic (valve) stenosis
CPT/HCPCS: 36415; 80048-TC; 80061-TC; 82565-TC; 82962-TC; 85025-TC; J1650

== ENCOUNTER 2019-02-12 13:29 | Outpatient (CLI) | payer MEDICARE ==
[~2019-02-12 13:29] MED LIST changes: +BLOO-668 IN; +ENOX40DI SQ; -HALO2TAB2 PO; -HALO50VI4 IM; +PANT40TA2 PO
[2019-02-12 13:56] VITALS: BP 146/60
== END 2019-02-12 23:59 | disposition home or self-care (01) ==
LOC: MSC 13:29
PROVIDERS: ATTEND Internal Medicine
DX: I35.0 Nonrheumatic aortic (valve) stenosis (principal); G40.909 Epilepsy, unspecified, not intractable, without status epilepticus; D64.9 Anemia, unspecified; F20.0 Paranoid schizophrenia; I10 Essential (primary) hypertension

== ENCOUNTER 2019-06-23 03:07 | Inpatient (IN) | payer MEDICARE, MEDICAID ==
[~2019-06-23] VITALS: Ht 167.6 cm; Wt 63.5 kg
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
[2019-06-23 03:49] LABS: BASOPHILS % (AUTO) 0.3 % (0.0-2.0); EOSINOPHILS % (AUTO) 0.1 % (0.0-6.0); HEMATOCRIT 42 % (33-45); HEMOGLOBIN 14.2 g/dL (11.5-14.8); LYMPHOCYTES # (AUTO) 1.5 /CMM (0.8-4.8); LYMPHOCYTES % (AUTO) 10.4 % (20.0-44.0); MEAN CORPUSCULAR HGB CONC 34 g/dl (31.0-36.0); MEAN CORPUSCULAR VOLUME 87 fL (82-100); MONOCYTES # (AUTO) 1.2 /CMM (0.1-1.30); MONOCYTES % (AUTO) 8.5 % (2.0-12.0); NEUTROPHILS # (AUTO) 11.5 /CMM (1.8-8.9); NEUTROPHILS % (AUTO) 80.7 % (43.0-81.0); PLATELET COUNT (AUTO) 205 /CMM (150-450); WHITE BLOOD COUNT (AUTO) 14.3 K/uL (4.3-11.0)
--- NOTE | 2019-06-23 03:49 | NUR ---
PT IS SENT TO CT.
[2019-06-23] MEDS ORDERED: IV NS 0.9% 500 ML BAG IV ONE (04:00)
[2019-06-23] MEDS ORDERED: LEVETIRACETAM (500MG) 500 MG in IV NS 0.9% 100 ML IV SCH (04:00)
[2019-06-23 04:15] LABS: CALCIUM, SERUM 9.8 mg/dL (8.5-10.1); CARBON DIOXIDE 26 mmol/L (21-32); CHLORIDE 99 mmol/L (98-107); CREATININE 2.6 mg/dL (0.6-1.3); GLUCOSE 121 mg/dL (74-106); POTASSIUM 4.1 mmol/L (3.5-5.1); SODIUM SERUM 133 mmol/L (136-145); UREA NITROGEN, BLOOD 46 mg/dL (7-18)
[2019-06-23 04:17] LABS: APPEARANCE,URINE Cloudy (CLEAR); BILIRUBIN,URINE MODERATE (NEGATIVE); BLOOD, URINE Trace-lysed Ery/uL (NEGATIVE); COLOR,URINE Yellow (YELLOW); KETONES,URINE Trace (NEGATIVE); LEUKOCYTE ESTERASE ,URINE Negative (NEGATIVE); NITRITE, URINE Negative (NEGATIVE); PROTEIN,URINE >=300 mg/dl (NEGATIVE); UGLUCOSE Negative (NEGATIVE); UROBILINOGEN,URINE 0.2 EU/dL (0.2)
[2019-06-23 04:18] LABS: ACETAMINOPHEN 0 ug/ml (10-30); SALICYLATE 0.5 mg/dL (2.8-20.0)
[2019-06-23 04:27] LABS: ALANINE AMINOTRANSFERASE 47 U/L (12-78); ALBUMIN 4.1 g/dL (3.4-5.0); ALKALINE PHOSPHATASE 82 U/L (46-116); ASPARTATE AMINOTRANSFERASE 126 U/L (15-37); B-TYPE NATRIURETIC PEPTIDE 23103 PG/ML (0-125); BILIRUBIN,DIRECT 0.1 mg/dL (0.0-0.2); BILIRUBIN,TOTAL 0.6 mg/dL (0.2-1.0); TOTAL PROTEIN, SERUM 8.3 g/dL (6.4-8.2)
[2019-06-23] MEDS ORDERED: LEVETIRACETAM (500MG) 500 MG/5 ML VIAL IV ONE (04:28)
--- NOTE | 2019-06-23 05:07 | NUR ---
PT SLEEPING COMFORTABLY IN BED 8. PT IS EASILY AROUSABLE THROUGH TACTILE AND VERBAL STIMULI. PATIENT IS BREATHING EVENLY AND UNLABORED. GIVEN CALL LIGHT WITHIN REACH.
[2019-06-23 05:18] LABS: BACTERIA,URINE Moderate /HPF (None Seen); SQUAMOUS EPITHELIAL CELL,UR Moderate /HPF (None Seen)
[2019-06-23 05:25] LABS: SERUM AMMONIA < 10 umol/L (11-32)
--- NOTE | 2019-06-23 05:30 | NUR ---
BED ASSIGNMENT 119-1
--- NOTE | 2019-06-23 05:38 | NUR ---
CALLED FOR REPORT, STATES NURSE IS BUSY, WILL AGAIN CALL IN 5-10MINUTES.
--- NOTE | 2019-06-23 05:52 | NUR ---
REPORT GIVEN TO NORMAN HERZOG FOR JUSTYN.
[2019-06-23] MEDS ORDERED: MAG HYDROX/AL HYDROX/SIMETH 30 ML UDC PO PRN (06:30)
[2019-06-23] MEDS ORDERED: ONDANSETRON HCL/PF 4 MG/2 ML VIAL IVP PRN (06:30)
[2019-06-23] MEDS ORDERED: HYDROCODONE/APAP 5/325MG 1 EACH TABLET PO PRN (06:30)
[2019-06-23] MEDS ORDERED: Z GUARD REMEDY 2 OZ OINT TP PRN (06:30)
[2019-06-23] MEDS ORDERED: DEXTROSE 50%-WATER 50 ML DISP.SYRIN IV PRN (06:30)
[2019-06-23] MEDS ORDERED: ACETAMINOPHEN 325 MG TABLET PO PRN (06:30)
[2019-06-23] MEDS ORDERED: MAGNESIUM HYDROXIDE 30 ML UDC PO PRN (06:30)
--- NOTE | 2019-06-23 07:16 | NUR ---
RN OPENING NOTES RECEIVED PATIENT SLEEPING IN BED COMFORTABLY, EASILY AROUSED. SHE IS AO X2, VERBAL, AND ON BED REST. SHE IS ON RA, TOLERATING WELL, NO COMPLAINTS OF RESP DISTRESS OR SOB. TELE MONITOR IS SHOWING SR, SKIN IS INTACT ASIDE FROM R HIP ABRASION. NO SWELLING EVIDENT ON EXTREMITIES. LUNGS SOUND CLEAR BILATERALLY. PT HAS A RAC 20 G SL, PATENT AND INTACT. SAFETY MEASURES HAVE BEEN IMPLEMENTED, CALL LIGHT IS WITHIN REACH, BED IS IN LOWEST AND LOCKED POSITION, SIDE RAILS UP X2, WILL CONTINUE TO MONITOR FOR ANY CHANGES.
[2019-06-23] MEDS: BLOOD SUGAR DIAGNOSTIC 1 EACH STRIP IN SCH ×4 (07:44→21:37)
[2019-06-23] MEDS: PANTOPRAZOLE 40 MG VIAL IV SCH (07:53)
[2019-06-23 08:00] VITALS: BP 105/36
[2019-06-23] MEDS: ASPIRIN EC 81 MG TABLET.DR PO SCH (08:24)
[2019-06-23] MEDS: HEPARIN SODIUM, PORCINE 5000 UNITS/1 ML VIAL SQ SCH ×2 (08:26→20:41)
[2019-06-23] MEDS ORDERED: HALO50AM2 IM (09:49)
[2019-06-23] MEDS ORDERED: HALO2TAB2 PO (09:49)
[2019-06-23] MEDS ORDERED: LEVE1000 PO (09:49)
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
[2019-06-23 16:00] VITALS: BP 94/39
[2019-06-23] MEDS: LEVETIRACETAM (500MG) 500 MG in IV NS 0.9% 100 ML IV SCH (16:44)
--- NOTE | 2019-06-23 17:45 | NUR ---
RN NOTES TROPONIN 1 IS TRENDING UP FROM 0.[address] PADLILA, WAITING FOR CALL BACK
[2019-06-23] MEDS: INSULIN REGULAR, HUMAN 100 UNIT/ML 3 ML VIAL SQ PRN ×2 (18:03→21:38)
--- NOTE | 2019-06-23 18:24 | NUR ---
RN NOTES DR. PADILLA MADE AWARE OF TROPONIN TRENDING UP. REPEAT TROPONIN LEVEL CHECK IS SCHEDULED, WILL CONTINUE TO MONITOR FOR ANY CHANGES.
--- NOTE | 2019-06-23 19:03 | NUR ---
RN NOTES PATIENT IS RESTING COMFORTABLY IN BED AT THIS TIME, DENIES ANY PAIN, SOB, OR DISCOMFORT. PATIENT NEEDS HAVE BEEN MET, VITAL SIGNS ARE STABLE, NO ACUTE CHANGES OCCURRED THROUGHOUT THE SHIFT. SAFETY MEASURES HAVE BEEN IMPLEMENTED, CALL LIGHT IS WITHIN REACH, BED IS IN LOWEST AND LOCKED POSITION, SIDE RAILS UP X2, WILL ENDORSE TO NIGHTSHIFT RN FOR CONTINUITY OF CARE.
--- NOTE | 2019-06-23 19:15 | NUR ---
MS RN OPENING NOTES RECEIVED PATIENT IN BED, ALERT, ORIENTED X 2. BREATHING EVEN AND UNLABORED. NOT IN ANY DISTRESS. ON ROOM AIR. IV LINE ON RAC G#20, PATENT AND INTACT. SEIZURE PRECAUTIONS MAINTAINED. SAFETY MEASURES IN PLACE; CALL LIGHT WITHIN REACH, BED IN LOW, LOCKED POSITION, BED ALARM ON. WILL CONTINUE TO MONITOR ACCORDINGLY
[2019-06-23 20:00] VITALS: BP 106/39
[2019-06-23 20:33] VITALS: BP 106/39
--- NOTE | 2019-06-23 21:39 | NUR ---
RN NOTES BSL CHECKED- 104MG/DL. NO INSULIN GIVEN PER SLIDING SCALE. SNACKS GIVEN
--- NOTE | 2019-06-23 23:40 | NUR ---
RN NOTES REPEAT TROP I IS 0.326 FROM 0.260. HANNY LANCE MADE AWARE. PER NATALIO, MONITOR FOR NOW AND REPEAT TROP I AT 0700. NOTED AND CARRIED OUT
[2019-06-24] MEDS: LEVETIRACETAM (500MG) 500 MG in IV NS 0.9% 100 ML IV SCH (04:15)
[2019-06-24 04:55] VITALS: BP 122/48
--- NOTE | 2019-06-24 06:54 | NUR ---
MS RN CLOSING NOTES PATIENT IS RESTING IN BED COMFORTABLY. BREATHING EVEN AND UNLABORED. NOT IN ANY DISTRESS. NO ACUTE CHANGES OVERNIGHT. KEPT CLEAN AND DRY. ALL NEEDS ATTENDED. SAFETY MEASURES IN PLACE, CALL LIGHT IS WITHIN REACH, BED IS IN LOWEST AND LOCKED POSITION, SIDE RAILS UP X2. SEIZURE PRECAUTIONS MAINTAINED. WILL ENDORSE TO JUSTYN TO ONCOMING RN
--- NOTE | 2019-06-24 07:32 | NUR ---
MS/RN NOTE THE PATIENT IS RECEIVED IN BED. AWAKE, ALERT AND ORIENTED X1. THE PATIENT IS IN NO APPARENT DISTRESS. DENIES PAIN. IN ROOM AIR AND DENIES SOB. RESPIRATION REGULAR AND UNLABORED. RAC G 20 PATENT AND SALINE LOCKED. BED LOW AND LOCKED. SIDE RAILS UP X3. CALL LIGHT WITHIN REACH. WILL CONTINUE TO MONITOR.
[2019-06-24 07:56] LABS: BASOPHILS % (AUTO) 0.5 % (0.0-2.0); EOSINOPHILS % (AUTO) 0.6 % (0.0-6.0); HEMATOCRIT 35 % (33-45); HEMOGLOBIN 12.2 g/dL (11.5-14.8); LYMPHOCYTES # (AUTO) 2.2 /CMM (0.8-4.8); LYMPHOCYTES % (AUTO) 26.8 % (20.0-44.0); MEAN CORPUSCULAR HGB CONC 35 g/dl (31.0-36.0); MEAN CORPUSCULAR VOLUME 85 fL (82-100); MONOCYTES # (AUTO) 0.7 /CMM (0.1-1.30); NEUTROPHILS # (AUTO) 5.2 /CMM (1.8-8.9); NEUTROPHILS % (AUTO) 63.1 % (43.0-81.0); PLATELET COUNT (AUTO) 176 /CMM (150-450); RED BLOOD CELL COUNT(AUTO) 4.14 MIL/uL (4.0-5.2); WHITE BLOOD COUNT (AUTO) 8.3 K/uL (4.3-11.0)
[2019-06-24 08:00] VITALS: BP 125/61
[2019-06-24 08:24] LABS: ALANINE AMINOTRANSFERASE 38 U/L (12-78); ALBUMIN 3.5 g/dL (3.4-5.0); ALKALINE PHOSPHATASE 72 U/L (46-116); ASPARTATE AMINOTRANSFERASE 75 U/L (15-37); BILIRUBIN,TOTAL 0.9 mg/dL (0.2-1.0); CALCIUM, SERUM 8.8 mg/dL (8.5-10.1); CARBON DIOXIDE 25 mmol/L (21-32); CHLORIDE 106 mmol/L (98-107); CREATININE 1.6 mg/dL (0.6-1.3); GLUCOSE 95 mg/dL (74-106); MAGNESIUM 2.3 mg/dL (1.8-2.4); PHOSPHORUS 2.9 mg/dL (2.5-4.9); POTASSIUM 3.9 mmol/L (3.5-5.1); SODIUM SERUM 143 mmol/L (136-145); TOTAL PROTEIN, SERUM 7.2 g/dL (6.4-8.2); UREA NITROGEN, BLOOD 55 mg/dL (7-18)
[2019-06-24 08:29] LABS: CHOLESTEROL 165 mg/dL (<200); CREATINE KINASE, TOTAL 1313 U/L (26-192); HDL CHOLESTEROL 70 mg/dL (40-60); LDL 81 mg/dL (0-99); THYROID STIMULATING HORMONE 0.741 uIU/mL (0.358-3.74); TRIGLYCERIDES 61 mg/dL (30-150)
[2019-06-24] MEDS: ASPIRIN EC 81 MG TABLET.DR PO SCH (08:39)
[2019-06-24] MEDS: BLOOD SUGAR DIAGNOSTIC 1 EACH STRIP IN SCH ×4 (08:39→21:07)
[2019-06-24] MEDS: PANTOPRAZOLE 40 MG VIAL IV SCH (08:39)
[2019-06-24] MEDS: HEPARIN SODIUM, PORCINE 5000 UNITS/1 ML VIAL SQ SCH ×2 (08:41→21:07)
[2019-06-24] MEDS: INSULIN REGULAR, HUMAN 100 UNIT/ML 3 ML VIAL SQ PRN (09:05)
--- NOTE | 2019-06-24 09:30 | NUR ---
MS/RN NOTE DR BURCIAGA IS MADE AWARE OF EKG RESULT AND NO NEW ORDER PER MD.
--- NOTE | 2019-06-24 11:24 | NUR ---
MS/RN NOTE DR PADILLA IS MADE AWARE OF TROPONIN LEVEL OF 0.229. PER MD NO NEW ORDERS.
--- NOTE | 2019-06-24 11:32 | NUR ---
MS/RN NOTE THE PATIENT HAS INDEPENDENT BED MOBILITY.
--- NOTE | 2019-06-24 11:56 | NUR ---
WOUND CARE CONSULT: PT PRESENTS WITH RT HIP DEEP TISSUE INJURY IN EVOLUTION, PRESENT ON ADMISSION. RECOMMENDATIONS MADE FOR SKIN PROTECTION AND WOUND CARE. DISCUSSED WITH NURSING STAFF. PT ON EMILEE ISOFLEX LOW AIRLOSS BED. PT IS INCONTINENT AND CURRENT LEVY SCORE IS 13. WILL SEE PRN. PITT IN AGREEMENT WITH PLAN OF CARE. Addendum: 06/24/19 at 1158 by DAMIAN WHITNEY WNDNU Amended: Links added.
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
[2019-06-24 16:00] VITALS: BP 113/49
--- NOTE | 2019-06-24 16:06 | NUR ---
MS/RN NOTE HOSPITAL`S SOCIAL SERVICE IS TALKING TO PATIENT`S SON.
--- NOTE | 2019-06-24 16:10 | NUR ---
MS/RN NOTE DR PADILLA IS MADE AWARE OF SON`S CONCERNS. NEW ORDER OF PSYCH CONSULT IS OBTAINED. SON IS MADE AWARE.
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
[2019-06-24] MEDS: LEVETIRACETAM (250 MG) 250 MG TABLET PO SCH (19:07)
--- NOTE | 2019-06-24 19:10 | NUR ---
MS/RN NOTE THE PATIENT IS ALERT AND ORIENTED X3 IN ROOM AIR AND SATURATION IS AT 97%. DENIES SOB. RESPIRATION REGULAR AND UNLABORED. DENIES PAIN. THE PATIENT IN NO APPARENT DISTRESS. RAC G 20 PATENT AND SALINE LOCKED. BED LOW AND LOCKED. SIDE RAILS UP X3. CALL LIGHT WITHIN REACH. WILL ENDORSE TO CHECKOUT OPERATOR.
[2019-06-24 20:00] VITALS: BP 113/45
[2019-06-25 04:00] VITALS: BP 131/50
[2019-06-25] MEDS: LEVETIRACETAM (250 MG) 250 MG TABLET PO SCH ×2 (05:21→17:31)
[2019-06-25] MEDS: BLOOD SUGAR DIAGNOSTIC 1 EACH STRIP IN SCH ×4 (06:25→21:19)
--- NOTE | 2019-06-25 06:45 | NUR ---
MS RN NOTES AWAKE & RESPONSIVE. NOT IN ANY DISTRESS. NO SOB NOTED. DENIES ANY PAIN OR DISCOMFORT AT THIS TIME. WITH IV-HL PATENT & INTACT. MONITORED ACCORDINGLY. CALL LIGHT WITHIN REACH. BED IN LOWEST POSITION. SR UP X 3 WITH BED ALARM ON FOR SAFETY. KEPT ON SEIZURE PREC AAT. WILL ENDORSE TO NEXT SHIFT.
--- NOTE | 2019-06-25 07:00 | NUR ---
MS RN NOTES PATIENT IS AWAKE AND RESPONSIVE, PATIENT IS ON RA SATTING AT 98 % PATIENT IS A/O X2 . PATIENT IS ON BED RED. PATIENT HAS R HIP ABRASION. ALARMS IN PLACED. PATIENT HAS RAC 20 G PATENT AND INTACT. PATIENT SHOWS NO SIGNS OF RESPIRATORY DISTRESS. NO SOB. BREATHING EVEN AND UNLABORED . BED LOCK AND LOWEST POSITION, CALL LIGHT WITH IN REACH . ALL SAFETY PRECAUTIONS IMPLEMENTED PER HOSPITAL POLICY
[2019-06-25 07:07] LABS: BASOPHILS % (AUTO) 0.6 % (0.0-2.0); EOSINOPHILS % (AUTO) 2.4 % (0.0-6.0); HEMATOCRIT 35 % (33-45); HEMOGLOBIN 11.9 g/dL (11.5-14.8); LYMPHOCYTES % (AUTO) 29.3 % (20.0-44.0); MEAN CORPUSCULAR HGB CONC 33 g/dl (31.0-36.0); MEAN CORPUSCULAR VOLUME 87 fL (82-100); MONOCYTES # (AUTO) 0.6 /CMM (0.1-1.30); MONOCYTES % (AUTO) 9.1 % (2.0-12.0); NEUTROPHILS # (AUTO) 4.1 /CMM (1.8-8.9); NEUTROPHILS % (AUTO) 58.6 % (43.0-81.0); PLATELET COUNT (AUTO) 177 /CMM (150-450); RED BLOOD CELL COUNT(AUTO) 4.08 MIL/uL (4.0-5.2); WHITE BLOOD COUNT (AUTO) 6.9 K/uL (4.3-11.0)
[2019-06-25 07:33] LABS: CALCIUM, SERUM 8.9 mg/dL (8.5-10.1); CREATININE 1.2 mg/dL (0.6-1.3); POTASSIUM 3.7 mmol/L (3.5-5.1)
[2019-06-25 08:10] LABS: COMPLEMENT C3, SERUM 107 mg/dL (82-167); COMPLEMENT C4, SERUM 31 mg/dL (14-44)
[2019-06-25] MEDS: PANTOPRAZOLE 40 MG VIAL IV SCH (09:59)
[2019-06-25] MEDS: ASPIRIN EC 81 MG TABLET.DR PO SCH (09:59)
[2019-06-25] MEDS: HEPARIN SODIUM, PORCINE 5000 UNITS/1 ML VIAL SQ SCH ×2 (10:00→21:37)
[2019-06-25 11:07] LABS: *ANA ANTI-CENTROMERE B AB <0.2 AI (0.0-0.9); *ANA ANTI-DNA(DS) AB, QN <1 IU/mL (0-9); *ANA ANTI-JO-1 <0.2 AI (0.0-0.9); *ANA ANTICHROMATIN ANTIBODY <0.2 AI (0.0-0.9); *ANA RNP ANTIBODIES <0.2 AI (0.0-0.9); *ANA SJOGREN'S ANTI-SS-A <0.2 AI (0.0-0.9); *ANA SJOGREN'S ANTI-SS-B <0.2 AI (0.0-0.9); *ANAANTI-SCLERODERMA-70 AB <0.2 AI (0.0-0.9); *ANASMITH AB <0.2 AI (0.0-0.9)
[2019-06-25 12:06] LABS: PTH, INTACT 65 pg/mL (15-65)
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
[2019-06-25 20:00] VITALS: BP 122/85
--- NOTE | 2019-06-25 21:12 | NUR ---
PATIENT AMBULATED TO THE MBATHROOM AND VOIDED, ASSISTED BACK TO BED,AND CLEANED AND KEPT DRY. BED ALARM ON FALL PRECAUTION
--- NOTE | 2019-06-25 21:22 | NUR ---
BLOOD SUGAR 76MG/DL. LIGHT SNACK GIVEN WITH FULL ASSIT, MADE COMFORTABLE.
[2019-06-25] MEDS: HALOPERIDOL 5 MG TABLET PO SCH (21:33)
--- NOTE | 2019-06-25 22:12 | NUR ---
LIGHT SNACK GIVEN AND PATIENT TOLERATED WELL WITH TOTAL ASSIST.DR DAVIS INFORMED ABOUT THE PATIENT BLOOD SUGAR 76MG/DL. AND ELEVATED BUN. WITH NO FURTHER ORDERS MADE.
--- NOTE | 2019-06-25 23:08 | NUR ---
PACKAGE DELIVERY ROOM SERVICE RUNNER OF CARE 2308 RECEIVED PATIENT FROM MINO HECTOR, AT 2308. PATIENT CURRENTLY ASLEEP, EASILY AROUSABLE TO NAME. A/O X 2. CURRENTLY ON ROOM AIR, TOLERATING WELL. NO SIGNS OF RESPIRATORY DISTRESS. NO SHORTNESS OF BREATH NOTED. IV SITE RAC G 20 PATENT AND SALINE LOCKED, NO SIGNS OF INFECTION/INFILTRATION. NO SIGNS OF FACIAL GRIMACING INDICATING PAIN OR DISCOMFORT AT THIS TIME.SAFETY PRECAUTIONS IMPLEMENTED; CALL LIGHT WITHIN REACH, BED LOCKED, BED LOWEST POSITION, BILATERAL UPPER SIDERAILS UP. WILL CONTINUE TO MONITOR.
[2019-06-26 04:00] VITALS: BP 120/51
[2019-06-26] MEDS: LEVETIRACETAM (250 MG) 250 MG TABLET PO SCH ×2 (05:21→17:52)
[2019-06-26 06:46] LABS: *SPE A/G RATIO 0.9 (0.7-1.7); *SPE ALBUMIN 3.2 g/dL (2.9-4.4); *SPE ALPHA-1-GLOBULIN 0.3 g/dL (0.0-0.4); *SPE ALPHA-2-GLOBULIN 0.8 g/dL (0.4-1.0); *SPE BETA GLOBULIN 1.2 g/dL (0.7-1.3); *SPE GLOBULIN, TOTAL 3.4 g/dL (2.2-3.9); *SPE M-SPIKE Not Observed g/dL (Not Observed); *SPEGAMMA GLOBULIN 1.1 g/dL (0.4-1.8)
[2019-06-26 06:48] LABS: CALCIUM, SERUM 8.7 mg/dL (8.5-10.1); POTASSIUM 3.7 mmol/L (3.5-5.1)
[2019-06-26 06:53] LABS: BASOPHILS # (AUTO) 0.1 /CMM (0.0-0.2); BASOPHILS % (AUTO) 1.1 % (0.0-2.0); EOSINOPHILS % (AUTO) 3.9 % (0.0-6.0); HEMATOCRIT 33 % (33-45); HEMOGLOBIN 11.2 g/dL (11.5-14.8); LYMPHOCYTES # (AUTO) 1.6 /CMM (0.8-4.8); LYMPHOCYTES % (AUTO) 24.9 % (20.0-44.0); MEAN CORPUSCULAR HGB CONC 34 g/dl (31.0-36.0); MEAN CORPUSCULAR VOLUME 86 fL (82-100); MONOCYTES # (AUTO) 0.7 /CMM (0.1-1.30); MONOCYTES % (AUTO) 10.6 % (2.0-12.0); NEUTROPHILS # (AUTO) 3.8 /CMM (1.8-8.9); NEUTROPHILS % (AUTO) 59.5 % (43.0-81.0); PLATELET COUNT (AUTO) 178 /CMM (150-450); RED BLOOD CELL COUNT(AUTO) 3.83 MIL/uL (4.0-5.2); WHITE BLOOD COUNT (AUTO) 6.4 K/uL (4.3-11.0)
--- NOTE | 2019-06-26 06:57 | NUR ---
RN CLOSING NOTES PATIENT IS ASLEEP, EASILY AROUSABLE. NO SIGNS OF RESPIRATORY DISTRESS. NO SHORTNESS OF BREATH NOTED. NO SIGNS OF FACIAL GRIMACING INDICATING PAIN OR DISCOMFORT AT THIS TIME. IV SITE RAC G 20 S/L, INTACT AND PATENT, NO INFECTION/INFILTRATION NOTED. SAFETY PRECAUTIONS IMPLEMENTED; CALL LIGHT WITHIN REACH, BED LOCKED, BED LOWEST POSITION, BILATERAL UPPER SIDERAILS UP. WILL CONTINUE TO MONITOR AND THEN WILL ENDORSE TO DAY SHIFT NURSE FOR CONTINUITY OF CARE.
--- NOTE | 2019-06-26 07:19 | NUR ---
RN NOTES REPORT GIVEN TO MINO KWONG, TO HAND REPORT OVER TO MAIN NURSE, MINO HECTOR.
[2019-06-26] MEDS: BLOOD SUGAR DIAGNOSTIC 1 EACH STRIP IN SCH ×4 (07:51→22:03)
--- NOTE | 2019-06-26 07:51 | NUR ---
BLOOD SUGAR 98MG/DL
[2019-06-26 08:00] VITALS: BP 133/68
[2019-06-26] MEDS: PANTOPRAZOLE 40 MG VIAL IV SCH (08:10)
[2019-06-26] MEDS: ASPIRIN EC 81 MG TABLET.DR PO SCH (08:34)
[2019-06-26] MEDS: HEPARIN SODIUM, PORCINE 5000 UNITS/1 ML VIAL SQ SCH ×2 (08:37→22:05)
--- NOTE | 2019-06-26 11:52 | NUR ---
physical therapy in for the physical therapy treatment and evaluation
[2019-06-26 16:00] VITALS: BP 128/72
--- NOTE | 2019-06-26 19:00 | NUR ---
recieved with pt in the bed and no IV. nurse prior stated pt pulled it out and she had no time to start a new. Ga 22 started left hand , pt cooperative. pt calm and smiling
[2019-06-26] MEDS: HALOPERIDOL 5 MG TABLET PO SCH (22:07)
[2019-06-27 04:44] VITALS: BP 147/50
--- NOTE | 2019-06-27 05:20 | NUR ---
closing notes: Slept thru the night. Only awakened when being repositiones to her sides. Noted if fluid not offered she doesn't reach out for them. swallows w/o problems
[2019-06-27] MEDS: LEVETIRACETAM (250 MG) 250 MG TABLET PO SCH (05:46)
--- NOTE | 2019-06-27 07:00 | NUR ---
MS RN OPENING NOTES PATIENT RECIEVED FROM PM SHIFT. PATIENT IS A/O X3 PATIENT , RT HIP ABRASION. PATIENT IS ON ROOM AIR. PATIENT SHOWS NO SIGNS OF RESPIRATORY DISTRESS. NO SOB. NO PAIN. PATIENT IS AMBULATORY AND MOVES AROUND THE BED INDEPENDENTLY. PATIENT HAS L AND 22 TKO. PATIENT IS ON SEIZURE PRECAUTION PER HOSPITAL PROTOCOL, BED LOCKED AND LOWEST POSITION, CALL LIGHT WITH IN REACH
[2019-06-27 07:12] LABS: BASOPHILS % (AUTO) 0.7 % (0.0-2.0); EOSINOPHILS % (AUTO) 4.6 % (0.0-6.0); HEMATOCRIT 35 % (33-45); HEMOGLOBIN 11.9 g/dL (11.5-14.8); LYMPHOCYTES # (AUTO) 2.4 /CMM (0.8-4.8); LYMPHOCYTES % (AUTO) 39.3 % (20.0-44.0); MEAN CORPUSCULAR HGB CONC 34 g/dl (31.0-36.0); MEAN CORPUSCULAR VOLUME 86 fL (82-100); MONOCYTES # (AUTO) 0.6 /CMM (0.1-1.30); MONOCYTES % (AUTO) 10.6 % (2.0-12.0); NEUTROPHILS # (AUTO) 2.7 /CMM (1.8-8.9); NEUTROPHILS % (AUTO) 44.8 % (43.0-81.0); PLATELET COUNT (AUTO) 186 /CMM (150-450); RED BLOOD CELL COUNT(AUTO) 4.08 MIL/uL (4.0-5.2)
[2019-06-27 07:22] LABS: CALCIUM, SERUM 8.9 mg/dL (8.5-10.1); POTASSIUM 4.2 mmol/L (3.5-5.1)
[2019-06-27 08:00] VITALS: BP 106/49
[2019-06-27] MEDS: PANTOPRAZOLE 40 MG VIAL IV SCH (08:47)
[2019-06-27] MEDS: BLOOD SUGAR DIAGNOSTIC 1 EACH STRIP IN SCH ×2 (08:47→13:37)
[2019-06-27] MEDS: ASPIRIN EC 81 MG TABLET.DR PO SCH (08:47)
[2019-06-27] MEDS: HEPARIN SODIUM, PORCINE 5000 UNITS/1 ML VIAL SQ SCH (08:48)
--- NOTE | 2019-06-27 09:27 | NUR ---
NURSE SPECIAL NOTES PATIENT BS 156 AFTER BREAKFAST PLUS 2 JUICE WILL CONTINUE TO MONITOR HELD INSULIN PER NURSING JUDGEMENT
[2019-06-27] MEDS ORDERED: LEVE250T2 PO (09:51)
--- NOTE | 2019-06-27 10:00 | NUR ---
MS RN NOTES CALLED SON - DONALD- UPDATED ABOUT MOTHERS CONDITION
--- NOTE | 2019-06-27 11:00 | NUR ---
MS RN NOTES TALKED TO DR PADILLA UPDATES FOR PATIENT PATIENT WAS SEEN BY
--- NOTE | 2019-06-27 13:37 | NUR ---
MS RN NOTES - BS PATIENT BLOOD SUGAR AT 94 NO COVERAGE NEEDED.
--- NOTE | 2019-06-27 16:22 | NUR ---
MINO MS CLOSING ALL DISCHARGE PAPER COMPLETED AND SIGN PHOTOS WERE TAKEN BELONGING SIGNED SON WAS PRESENT PATIENT LEFT THE HOSPITAL IN STABLE CONDITION ALL IV TAKEN OFF ACCOMPANIED PATIENT TO LOBBY
== END 2019-06-27 16:22 | disposition home health service (06) | DRG 100 ==
LOC: ER 03:11 → TELE1 05:34 → EDBD 05:34 → MEDSG1 11:35
PROVIDERS: ADMIT Family Medicine; ATTEND Family Medicine
DX: G40.909 Epilepsy, unspecified, not intractable, without status epilepticus (principal); N17.0 Acute kidney failure with tubular necrosis; I21.A1 Myocardial infarction type 2; E87.1 Hypo-osmolality and hyponatremia; F20.0 Paranoid schizophrenia; Z91.19 Patient's noncompliance with other medical treatment and regimen; E86.1 Hypovolemia; E78.5 Hyperlipidemia, unspecified; D72.829 Elevated white blood cell count, unspecified; N18.9 Chronic kidney disease, unspecified; I12.9 Hypertensive chronic kidney disease with stage 1 through stage 4 chronic kidney disease, or unspecified chronic kidney disease; I35.0 Nonrheumatic aortic (valve) stenosis; G89.29 Other chronic pain; E11.9 Type 2 diabetes mellitus without complications; Z91.14 Patient's other noncompliance with medication regimen
CPT/HCPCS: 36415; 70450-TC; 71045-TC; 80048-TC; 80053-TC; 80061-TC; 80076-TC; 80177; 81000-TC; 82140-TC; 82550-TC; 82962-TC; 83605-TC; 83735-TC; 83880; 83970; 84100-TC; 84155; 84165; 84443-TC; 84484-TC; 85025-TC; 85652-TC; 85730-TC; 86225; 86235; 86706; 86803; 87040-TC; 87081-TC; 87086-TC; 87340; 93307-TC; 97110-TC; 97112-TC; 97116-TC; 97530-TC; C9113; G0378; G0480; J1644; J1815; J1953; J7030; J7050; J7060

== ENCOUNTER 2019-07-03 12:45 | Outpatient (CLI) | payer MEDICARE, MEDICAID ==
[~2019-07-03 12:45] MED LIST changes: -ASPI-869 PO; -ATOR40TA PO; -BLOO-668 IN; -ENOX40DI SQ; +HALO2TAB2 PO; +HALO50AM2 IM; +LEVE250T2 PO; -PANT40TA2 PO
[2019-07-03 12:51] VITALS: BP 93/49
== END 2019-07-03 23:59 | disposition home or self-care (01) ==
LOC: MSC 12:45
PROVIDERS: ATTEND Internal Medicine
DX: G40.909 Epilepsy, unspecified, not intractable, without status epilepticus (principal); I35.0 Nonrheumatic aortic (valve) stenosis; M47.896 Other spondylosis, lumbar region; F20.9 Schizophrenia, unspecified; F29 Unspecified psychosis not due to a substance or known physiological condition; E78.5 Hyperlipidemia, unspecified; G89.29 Other chronic pain; M54.5 Low back pain

== ENCOUNTER 2019-08-26 20:59 | Inpatient (IN) | payer MEDICARE, MEDICAID ==
[~2019-08-26] VITALS: Ht 167.6 cm; Wt 63.5 kg
--- NOTE | 2019-08-26 21:10 | NUR ---
JORGE C/O ALTERED MENTAL STATUS. PER SON, PT NORMALLY ABLE TO PERFORM SELF ADL AND IS AMBULATORY. LAST KNOWN WELL X1 DAY AGO. PT'S SON STATES "SHE NORMALLY GETS LIKE THIS IF SHE DOESN'T TAKE HER SEIZURE MEDICATION AND HAS A SEIZURE". PT OPENS EYES SPONTANEOUSLY. VITAL SIGNS STABLE. RESPIRATIONS EVEN AND UNLABORED. PT PLACED ON CONTINUOUS DIVIDEND CLERK, WILL CONTINUE TO MONITOR.
[2019-08-26] MEDS ORDERED: LEVETIRACETAM (500MG) 500 MG/5 ML VIAL IV ONE (21:20)
[2019-08-26] MEDS ORDERED: IV NS 0.9% 500 ML BAG IV ONE (21:30)
[2019-08-26] MEDS ORDERED: LEVETIRACETAM (500MG) 1,000 MG in IV NS 0.9% 100 ML IV SCH (21:30)
--- NOTE | 2019-08-26 21:30 | NUR ---
IV INITIATED RAC 18G. LABS DRAWN FROM SITE. FIELD TRAINING MANAGER AT BEDSIDE FOR COLLECTION. IV INTACT AND PATENT, PLACED ON SALINE LOCK
[2019-08-26 21:35] LABS: BASOPHILS # (AUTO) 0.1 /CMM (0.0-0.2); BASOPHILS % (AUTO) 0.6 % (0.0-2.0); EOSINOPHILS % (AUTO) 0.4 % (0.0-6.0); HEMATOCRIT 42 % (33-45); HEMOGLOBIN 14.6 g/dL (11.5-14.8); LYMPHOCYTES % (AUTO) 20.3 % (20.0-44.0); MEAN CORPUSCULAR HGB CONC 35 g/dl (31.0-36.0); MEAN CORPUSCULAR VOLUME 85 fL (82-100); MONOCYTES # (AUTO) 0.6 /CMM (0.1-1.30); NEUTROPHILS % (AUTO) 72.7 % (43.0-81.0); PLATELET COUNT (AUTO) 185 /CMM (150-450); RED BLOOD CELL COUNT(AUTO) 4.95 MIL/uL (4.0-5.2); WHITE BLOOD COUNT (AUTO) 9.6 K/uL (4.3-11.0)
[2019-08-26 21:44] LABS: CALCIUM, SERUM 9.4 mg/dL (8.5-10.1); CARBON DIOXIDE 23 mmol/L (21-32); CHLORIDE 103 mmol/L (98-107); CREATININE 1.2 mg/dL (0.6-1.3); GLUCOSE 102 mg/dL (74-106); POTASSIUM 3.9 mmol/L (3.5-5.1); SODIUM SERUM 141 mmol/L (136-145); UREA NITROGEN, BLOOD 22 mg/dL (7-18)
--- NOTE | 2019-08-26 21:46 | NUR ---
DONALD (SON) CONTACT INFORMATION: [phone]
[2019-08-26 21:52] LABS: SERUM AMMONIA 14 umol/L (11-32)
[2019-08-26 21:54] LABS: ALANINE AMINOTRANSFERASE 18 U/L (12-78); ALBUMIN 3.9 g/dL (3.4-5.0); ALCOHOL, BLOOD < 3 mg/dL (0-0); ALKALINE PHOSPHATASE 90 U/L (46-116); ASPARTATE AMINOTRANSFERASE 25 U/L (15-37); BILIRUBIN,DIRECT 0.2 mg/dL (0.0-0.2); BILIRUBIN,TOTAL 0.9 mg/dL (0.2-1.0); TOTAL PROTEIN, SERUM 7.9 g/dL (6.4-8.2)
[2019-08-26 22:05] LABS: THYROID STIMULATING HORMONE 2.043 uIU/mL (0.358-3.74)
--- NOTE | 2019-08-26 22:10 | NUR ---
URINE COLLECTED AND SENT TO LAB
[2019-08-26 22:16] LABS: APPEARANCE,URINE Slightly Cloudy (CLEAR); BILIRUBIN,URINE Negative (NEGATIVE); BLOOD, URINE Moderate Ery/uL (NEGATIVE); COLOR,URINE Yellow (YELLOW); KETONES,URINE 15 (NEGATIVE); LEUKOCYTE ESTERASE ,URINE Trace (NEGATIVE); NITRITE, URINE Positive (NEGATIVE); PH,URINE 6.5 (5.0-8.0); PROTEIN,URINE 100 mg/dl (NEGATIVE); UGLUCOSE Negative (NEGATIVE); UROBILINOGEN,URINE 0.2 EU/dL (0.2)
--- NOTE | 2019-08-26 22:41 | NUR ---
GAVE REPORT TO MINO BROCK FOR JUSTYN
[2019-08-26 23:00] VITALS: BP 167/95
[2019-08-26] MEDS ORDERED: HYDROCODONE/APAP 5/325MG 1 EACH TABLET PO PRN (23:00)
[2019-08-26] MEDS ORDERED: MAGNESIUM HYDROXIDE 30 ML UDC PO PRN (23:00)
[2019-08-26] MEDS ORDERED: ACETAMINOPHEN 325 MG TABLET PO PRN (23:00)
[2019-08-26] MEDS ORDERED: MAG HYDROX/AL HYDROX/SIMETH 30 ML UDC PO PRN (23:00)
[2019-08-26] MEDS ORDERED: ONDANSETRON HCL/PF 4 MG/2 ML VIAL IVP PRN (23:00)
--- NOTE | 2019-08-26 23:00 | NUR ---
DIRECTOR QUALITY ASSURANCESOCIAL SERVICES SPECIALIST NOTES RECEIVED FROM ER VIA KAMRYN VIA ACLS PROTOCOL,A/O X2-3,ABLE TO STATE HER NAME AND BIRTHDAY,DIAGNOSIS OF ACUTE ENCEPHALOPATHY,UTI.BREATHING REGULAR,NOT IN ANY FORM OF DISTRESS.SALINE LOCK RIGHT AC INTACT AND PATENT.NO SKIN ISSUES.REFUSED FLU AND PNA VACCINE,SAYS SHE NEVER HAVE IT.PER PATIENT ,SHE AMBULATES WITH WALKER AT HOME,NO HX OF FALL.CALL LIGHT IN REACH ,NEEDS ANTICEPATED
--- NOTE | 2019-08-26 23:00 | NUR ---
PT TRANSFERRED PER ACLS PROTOCOL
[2019-08-26 23:20] LABS: BACTERIA,URINE Many /HPF (None Seen); SQUAMOUS EPITHELIAL CELL,UR Few /HPF (None Seen); WBC,URINE TOO NUMEROUS TO COUN /HPF (0-3)
[2019-08-26] MEDS ORDERED: LEVETIRACETAM (500MG) 500 MG in IV NS 0.9% 100 ML IV SCH (23:30)
[2019-08-27] MEDS ORDERED: CEFTRIAXONE 1 G VIAL ONE (00:11)
[2019-08-27 00:14] VITALS: BP 167/72
[2019-08-27] MEDS: IV NS 0.9% 1,000 ML IV PRN ×2 (00:16→22:09)
[2019-08-27] MEDS: CEFTRIAXONE 1 G in IV D5W 50 ML IV SCH ×2 (00:16→23:58)
--- NOTE | 2019-08-27 00:16 | NUR ---
MS RN NOTES STARTED ON HYDRALAZINE 20MG IV ORDERED FOR SBP > THAN 160.
--- NOTE | 2019-08-27 00:16 | NUR ---
MS RN NOTES STARTED ON ROCEPHIN 1 GM IVPB ORDERED FOR UTI.
[2019-08-27] MEDS ORDERED: hydrALAZINE HCL IV 20 MG VIAL IV PRN (01:00)
--- NOTE | 2019-08-27 01:42 | NUR ---
MS RN NOTES SR-96 ON TELE MONITOR.
[2019-08-27 02:08] VITALS: BP 140/66
--- NOTE | 2019-08-27 02:10 | NUR ---
MS RN NOTES BP-140/66,PULSE-107 POST HYDRALAZINE 10MG IV
[2019-08-27 04:08] VITALS: BP 142/66
--- NOTE | 2019-08-27 06:31 | NUR ---
SOUND MIXER NOTES ON BED AWAKE,CALM AND QUIET,NO SEIZURE ACTIVITY.BLADDER NON DISTENDED.IVF IN PROGRESS AT 50ML/HR RATE.IN NO ACUTE DISTRESS.WILL ENDORSE TO DAY NURSE FOR JUSTYN.
[2019-08-27 06:46] LABS: BASOPHILS % (AUTO) 0.5 % (0.0-2.0); EOSINOPHILS % (AUTO) 0.2 % (0.0-6.0); HEMATOCRIT 42 % (33-45); HEMOGLOBIN 14.2 g/dL (11.5-14.8); LYMPHOCYTES % (AUTO) 22.2 % (20.0-44.0); MEAN CORPUSCULAR HGB CONC 34 g/dl (31.0-36.0); MEAN CORPUSCULAR VOLUME 84 fL (82-100); MONOCYTES # (AUTO) 0.7 /CMM (0.1-1.30); MONOCYTES % (AUTO) 7.4 % (2.0-12.0); NEUTROPHILS # (AUTO) 6.2 /CMM (1.8-8.9); NEUTROPHILS % (AUTO) 69.7 % (43.0-81.0); PLATELET COUNT (AUTO) 178 /CMM (150-450); RED BLOOD CELL COUNT(AUTO) 4.95 MIL/uL (4.0-5.2); WHITE BLOOD COUNT (AUTO) 8.9 K/uL (4.3-11.0)
[2019-08-27 07:01] LABS: CALCIUM, SERUM 8.9 mg/dL (8.5-10.1); CREATININE 0.9 mg/dL (0.6-1.3); MAGNESIUM 1.9 mg/dL (1.8-2.4); PHOSPHORUS 4.6 mg/dL (2.5-4.9); POTASSIUM 4.1 mmol/L (3.5-5.1)
[2019-08-27 07:11] LABS: THYROID STIMULATING HORMONE 0.814 uIU/mL (0.358-3.74)
[2019-08-27] MEDS: PANTOPRAZOLE 40 MG TABLET.DR PO SCH (07:39)
[2019-08-27 08:00] VITALS: BP 130/57
--- NOTE | 2019-08-27 08:00 | NUR ---
Tele/RN - Assessment Patient is awake, A/O x 2, no complaints overnight, tele shows SR, denies pain, no apparent distress, afebrile, stable on room air. IVF NS at 50 ml/hr infusing well on the RAC with no signs of infiltration. Labs reviewed, no critical results. Skin is intact. Dr. Quintana at bedside for neuro consult. Patient educated on plan of care. Will continue with current medical management.
[2019-08-27] MEDS ORDERED: ATOR40TA PO (08:30)
[2019-08-27] MEDS ORDERED: LEVE500T9 PO (08:30)
[2019-08-27] MEDS: LEVETIRACETAM (500MG) 1,000 MG in IV NS 0.9% 100 ML IV SCH ×2 (09:05→21:15)
--- NOTE | 2019-08-27 10:00 | NUR ---
GARNETT MECHANIC NOTES TOOK OVER CARE OF PATIENT. CURRENTLY BEING [facility].
[2019-08-27 16:00] VITALS: BP 135/63
--- NOTE | 2019-08-27 18:42 | NUR ---
MS RN CLOSING NOTES ALERT AND ORIENTED X2. NO S/S OF RESPIRATORY DISTRESS. DENIES ANY C/O PAIN NOR DISCOMFORT AT THIS TIME. RIGHT AC # 18 INTACT AND PATENT INFUSING NS @ 50ML/HR NATALIE WELL. AMBULATORY WITH STEADY GAIT, CONTACT GUARD ASSIST. BED IN LOWEST POSITION, LOCKED. BED ALARM ON. CALL LIGHT WITHIN REACH. IN NO APPARENT DISTRESS.
--- NOTE | 2019-08-27 19:05 | NUR ---
MS RN NOTES RECEIVED PT IN BED AND AWAKE. PT A/O X2-3. RESPIRATIONS EVEN AND UNLABORED WITH NO S/S OF ACUTE DISTRESS OR SOB NOTED. NO COMPLAINTS OF PAIN AT THIS TIME. PT NOTED WITH RAC #18G PATENT AND INTACT INFUSING NS @50CC/HR. SAFETY MEASURES IN PLACE WITH BED IN LOWEST LOCKED POSITION WITH SIDE RAILS UP X2. CALL LIGHT WITHIN REACH. WILL CONTINUE TO MONITOR.
[2019-08-27 20:21] VITALS: BP 119/51
--- NOTE | 2019-08-28 06:42 | NUR ---
MS RN NOTES PT IN BED AND AWAKE. PT A/O X2-3. RESPIRATIONS EVEN AND UNLABORED WITH NO S/S OF ACUTE DISTRESS OR SOB NOTED THROUGHOUT SHIFT. NO COMPLAINTS OF PAIN AT THIS TIME. PT NOTED WITH RAC #18G PATENT AND INTACT INFUSING NS @50CC/HR. PT KEPT CLEAN, DRY, AND COMFORTABLE. SAFETY MEASURES IN PLACE WITH BED IN LOWEST LOCKED POSITION WITH SIDE RAILS UP X2. CALL LIGHT WITHIN REACH. WILL ENDORSE TO ONCOMING NURSE FOR JUSTYN.
[2019-08-28 07:15] LABS: BASOPHILS % (AUTO) 0.7 % (0.0-2.0); EOSINOPHILS % (AUTO) 4.7 % (0.0-6.0); HEMATOCRIT 37 % (33-45); HEMOGLOBIN 12.5 g/dL (11.5-14.8); LYMPHOCYTES # (AUTO) 1.8 /CMM (0.8-4.8); LYMPHOCYTES % (AUTO) 35.8 % (20.0-44.0); MEAN CORPUSCULAR HGB CONC 34 g/dl (31.0-36.0); MEAN CORPUSCULAR VOLUME 85 fL (82-100); MONOCYTES # (AUTO) 0.5 /CMM (0.1-1.30); MONOCYTES % (AUTO) 10.6 % (2.0-12.0); NEUTROPHILS # (AUTO) 2.5 /CMM (1.8-8.9); NEUTROPHILS % (AUTO) 48.2 % (43.0-81.0); PLATELET COUNT (AUTO) 153 /CMM (150-450); RED BLOOD CELL COUNT(AUTO) 4.31 MIL/uL (4.0-5.2); WHITE BLOOD COUNT (AUTO) 5.1 K/uL (4.3-11.0)
[2019-08-28 07:31] LABS: CALCIUM, SERUM 8.3 mg/dL (8.5-10.1); CARBON DIOXIDE 25 mmol/L (21-32); CHLORIDE 104 mmol/L (98-107); CREATININE 0.9 mg/dL (0.6-1.3); GLUCOSE 80 mg/dL (74-106); MAGNESIUM 1.8 mg/dL (1.8-2.4); PHOSPHORUS 3.3 mg/dL (2.5-4.9); POTASSIUM 3.9 mmol/L (3.5-5.1); SODIUM SERUM 139 mmol/L (136-145); UREA NITROGEN, BLOOD 20 mg/dL (7-18)
[2019-08-28 08:00] VITALS: BP 118/64
--- NOTE | 2019-08-28 08:00 | NUR ---
m/s electric accounting machine operator: initial assessment received pt in bed awake, a/ox2 with periods of confusion and disorientation to place and situation. reality orientation provided prn. no apparent distress noted. will continue to monitor.
[2019-08-28] MEDS: PANTOPRAZOLE 40 MG TABLET.DR PO SCH (08:44)
[2019-08-28] MEDS: LEVETIRACETAM (500MG) 1,000 MG in IV NS 0.9% 100 ML IV SCH (09:45)
--- NOTE | 2019-08-28 10:00 | NUR ---
m/s frit mixer and burner: notes son visiting. pt resting comfortable. no distress noted.
--- NOTE | 2019-08-28 12:00 | NUR ---
m/s automotive light mechanic: notes pt tolerated p.t. tx. lunch served. hob elevated. transliterator to assist with feeding. instructed to call for assistance. will contineu to monitor.
[2019-08-28] MEDS ORDERED: LEVE500T9 PO (12:29)
[2019-08-28] MEDS ORDERED: CEPH-569 PO (12:29)
--- NOTE | 2019-08-28 14:00 | NUR ---
m/s septic cleaner: md visit seen and examined by dr. laguna with order to d'c home with prescriptions. order acknowledged. bryon (son) notified and made aware. e scripts prescription arranged by dr. laguna and per son [facility] already [facility] and will pickler helper prescriptions. pt made aware.
[2019-08-28 16:00] VITALS: BP 142/68
--- NOTE | 2019-08-28 16:45 | NUR ---
m/s primer inserting machine operator: notes h/l removed with tip intact, awaiting for son to pick her up. pt gotten dressed with assist. instructed to call for assistance.
--- NOTE | 2019-08-28 17:30 | NUR ---
m/s hot metal charger: notes pt having her dinner, up in chair. son here and discharge instructions with e scripts prescriptions provided by . son verbalized understanding. pt finishing her dinner.
--- NOTE | 2019-08-28 17:55 | NUR ---
m/s frame stylist: discharged discharge home accompanied by son in stable condition with all d'c papers and belongings.
== END 2019-08-28 18:07 | disposition home or self-care (01) | DRG 100 ==
LOC: ER 20:59 → TELE 22:41 → MED 08-27 10:18
PROVIDERS: ADMIT Nurse Practitioner Acute Care; ATTEND Nurse Practitioner Acute Care
DX: R56.9 Unspecified convulsions (principal); G92 Toxic encephalopathy; N39.0 Urinary tract infection, site not specified; F20.0 Paranoid schizophrenia; I10 Essential (primary) hypertension; E86.0 Dehydration; I25.2 Old myocardial infarction; I35.0 Nonrheumatic aortic (valve) stenosis; F03.90 Unspecified dementia, unspecified severity, without behavioral disturbance, psychotic disturbance, mood disturbance, and anxiety; Z86.73 Personal history of transient ischemic attack (TIA), and cerebral infarction without residual deficits; Z91.19 Patient's noncompliance with other medical treatment and regimen; B96.20 Unspecified Escherichia coli [E. coli] as the cause of diseases classified elsewhere; R40.2413 Glasgow coma scale score 13-15, at hospital admission
CPT/HCPCS: 36415; 70450-TC; 71045-TC; 80048-TC; 80061-TC; 80076-TC; 81000-TC; 82140-TC; 83735-TC; 84100-TC; 84443-TC; 84484-TC; 85025-TC; 85730-TC; 87081-TC; 87086-TC; 87186-TC; 92611-TC; 97116-TC; 97530-TC; G0378; G0480; J0360; J0696; J1953; J7030; J7040; J7060

== ENCOUNTER 2019-09-03 11:18 | Outpatient (CLI) | payer MEDICARE, MEDICAID ==
[~2019-09-03 11:18] MED LIST changes: +ATOR40TA PO; +CEPH-569 PO; -LEVE250T2 PO; +LEVE500T9 PO
== END 2019-09-03 23:59 | disposition home or self-care (01) ==
LOC: MSC 11:18
PROVIDERS: ATTEND Internal Medicine
DX: G40.909 Epilepsy, unspecified, not intractable, without status epilepticus (principal); I35.0 Nonrheumatic aortic (valve) stenosis; F20.9 Schizophrenia, unspecified; F03.90 Unspecified dementia, unspecified severity, without behavioral disturbance, psychotic disturbance, mood disturbance, and anxiety; E78.5 Hyperlipidemia, unspecified; M19.90 Unspecified osteoarthritis, unspecified site; G89.29 Other chronic pain; M54.9 Dorsalgia, unspecified; Z79.899 Other long term (current) drug therapy

== ENCOUNTER 2020-01-08 14:06 | Outpatient (CLI) | payer MEDICARE, MEDICAID ==
[2020-01-08 16:27] LABS: APPEARANCE,URINE HAZY (CLEAR); BILIRUBIN,URINE NEGATIVE (NEGATIVE); BLOOD, URINE SMALL Ery/uL (NEGATIVE); COLOR,URINE YELLOW (YELLOW); KETONES,URINE NEGATIVE (NEGATIVE); LEUKOCYTE ESTERASE ,URINE LARGE (NEGATIVE); NITRITE, URINE NEGATIVE (NEGATIVE); PH,URINE 7.5 (5.0-8.0); PROTEIN,URINE NEGATIVE (NEGATIVE); UGLUCOSE NEGATIVE (NEGATIVE); UROBILINOGEN,URINE 0.2 EU/dL (0.2)
[2020-01-08 16:57] LABS: BACTERIA,URINE 2+ /HPF (None Seen); SQUAMOUS EPITHELIAL CELL,UR Few /HPF (None Seen); WBC,URINE 21-50 /HPF (0-3)
[2020-01-08 17:28] LABS: BILIRUBIN,DIRECT 0.2 mg/dL (0.0-0.2); BILIRUBIN,TOTAL 1.2 mg/dL (0.2-1.0); CALCIUM, SERUM 9.2 mg/dL (8.5-10.1); CREATININE 1.2 mg/dL (0.6-1.3); FREE T4 (FREE THYROXINE) 0.96 ng/dL (0.76-1.46); POTASSIUM 4.2 mmol/L (3.5-5.1); THYROID STIMULATING HORMONE 1.789 uIU/mL (0.358-3.74)
[2020-01-08 18:08] LABS: HEMOGLOBIN 11.9 g/dL (11.5-14.8)
[2020-01-08 18:18] LABS: BASOPHILS # (AUTO) 0.1 /CMM (0.0-0.2); EOSINOPHILS % (AUTO) 1.9 % (0.0-6.0); HEMATOCRIT 35 % (33-45); LYMPHOCYTES # (AUTO) 1.8 /CMM (0.8-4.8); LYMPHOCYTES % (AUTO) 33.1 % (20.0-44.0); MEAN CORPUSCULAR HGB CONC 34 g/dl (31.0-36.0); MEAN CORPUSCULAR VOLUME 88 fL (82-100); MONOCYTES # (AUTO) 0.5 /CMM (0.1-1.30); NEUTROPHILS # (AUTO) 2.9 /CMM (1.8-8.9); PLATELET COUNT (AUTO) 133 /CMM (150-450); WHITE BLOOD COUNT (AUTO) 5.4 K/uL (4.3-11.0)
== END 2020-01-08 23:59 | disposition home or self-care (01) ==
LOC: MSC 14:06
PROVIDERS: ATTEND Internal Medicine
DX: N39.0 Urinary tract infection, site not specified (principal); B96.20 Unspecified Escherichia coli [E. coli] as the cause of diseases classified elsewhere; D46.9 Myelodysplastic syndrome, unspecified; G40.909 Epilepsy, unspecified, not intractable, without status epilepticus; F20.9 Schizophrenia, unspecified; I35.0 Nonrheumatic aortic (valve) stenosis; E78.5 Hyperlipidemia, unspecified; M47.896 Other spondylosis, lumbar region; G89.29 Other chronic pain; M54.9 Dorsalgia, unspecified; Z79.899 Other long term (current) drug therapy
CPT/HCPCS: 36415; 80053; 80061; 81001; 84439; 84443; 85025; 87077; 87086; 87186; G0463; 80076-TC; 81000-TC

== ENCOUNTER 2020-02-15 11:20 | Outpatient (CLI) | payer MEDICARE, MEDICAID | END 2020-02-15 23:59 | disposition home or self-care (01) | LOC: MSC 11:20 | PROVIDERS: ATTEND Internal Medicine | DX: G40.909 Epilepsy, unspecified, not intractable, without status epilepticus (principal); F20.9 Schizophrenia, unspecified; I35.0 Nonrheumatic aortic (valve) stenosis; E78.5 Hyperlipidemia, unspecified; M47.816 Spondylosis without myelopathy or radiculopathy, lumbar region; Z79.899 Other long term (current) drug therapy | CPT/HCPCS: J1631 ×3; 96372 ==

== ENCOUNTER 2020-10-04 21:06 | Inpatient (IN) | payer MEDICARE, OTHER ==
[~2020-10-04] VITALS: Ht 167.6 cm; Wt 65.8 kg
--- NOTE | 2020-10-04 21:10 | NUR ---
BIBSON FROM HOME C/O MIDSTERNAL CHEST PAIN X9HR ACTIVITY LEADER. PER SON, ALSO NOTED MORE CONFUSED THAN NORMAL X4 DAYS. PT C/O R SIDED WEAKNESS ON ARRIVAL. PT AAOX4. NOTED HYPERTENSION. RESPIRATIONS EVEN AND UNLABORED. NO ACUTE DISTRESS NOTED AT THIS TIME. PT PLACED IN GOWN AND ON CONTINUOUS PROJECT DEVELOPMENT LEADER AND PULSE OX, WILL CONTINUE TO MONITOR
--- NOTE | 2020-10-04 21:11 | NUR ---
AC (SON) CONTACT INFORMATION: [phone]
[2020-10-04 21:24] LABS: BASOPHILS # (AUTO) 0.1 /CMM (0.0-0.2); BASOPHILS % (AUTO) 1.1 % (0.0-2.0); EOSINOPHILS % (AUTO) 1.3 % (0.0-6.0); HEMATOCRIT 36 % (33-45); HEMOGLOBIN 12.6 g/dL (11.5-14.8); LYMPHOCYTES # (AUTO) 2.7 /CMM (0.8-4.8); MEAN CORPUSCULAR HGB CONC 35 g/dl (31.0-36.0); MEAN CORPUSCULAR VOLUME 86 fL (82-100); MONOCYTES # (AUTO) 0.6 /CMM (0.1-1.30); NEUTROPHILS # (AUTO) 4.5 /CMM (1.8-8.9); NEUTROPHILS % (AUTO) 56.6 % (43.0-81.0); PLATELET COUNT (AUTO) 106 /CMM (150-450); RED BLOOD CELL COUNT(AUTO) 4.26 MIL/uL (4.0-5.2)
--- NOTE | 2020-10-04 21:32 | NUR ---
PT BROUGHT BY RADIOLOGY TO CT
[2020-10-04 21:36] LABS: CALCIUM, SERUM 8.9 mg/dL (8.5-10.1); CREATININE 1.3 mg/dL (0.6-1.3); POTASSIUM 4.5 mmol/L (3.5-5.1)
--- NOTE | 2020-10-04 21:47 | NUR ---
PT RETURNED FROM CT
--- NOTE | 2020-10-04 22:49 | NUR ---
Call from lab. rapid covid negative.
--- NOTE | 2020-10-04 23:54 | NUR ---
REPORT GIVEN TO MINO BRAGG FOR JUSTYN
--- NOTE | 2020-10-05 00:11 | NUR ---
PT TRANSFERRED PER ACLS PROTOCOL
[2020-10-05] MEDS ORDERED: MAG HYDROX/AL HYDROX/SIMETH 30 ML UDC PO PRN (00:30)
[2020-10-05] MEDS ORDERED: MAGNESIUM HYDROXIDE 30 ML UDC PO PRN (00:30)
[2020-10-05] MEDS ORDERED: TEMAZEPAM 15 MG CAPSULE PO PRN (00:30)
[2020-10-05] MEDS ORDERED: HYDROCODONE/APAP 5/325MG TABLET PO PRN (00:30)
[2020-10-05] MEDS ORDERED: ONDANSETRON HCL/PF 4 MG/2 ML VIAL IVP PRN (00:30)
[2020-10-05] MEDS ORDERED: NITROGLYCERIN 0.4 MG/TAB BOTTLE SL PRN (00:30)
[2020-10-05] MEDS ORDERED: MORPHINE SULFATE INJ 2 MG/ML DISP.SYRIN IV PRN (00:30)
[2020-10-05] MEDS ORDERED: Z GUARD REMEDY 2 OZ OINT TP PRN (00:30)
[2020-10-05] MEDS ORDERED: ACETAMINOPHEN 325 MG TABLET PO PRN (00:30)
[2020-10-05] MEDS ORDERED: ENOXAPARIN SODIUM 30 MG/0.3 ML DISP.SYRIN SQ SCH ×2 (00:30→21:00)
--- NOTE | 2020-10-05 01:15 | NUR ---
MS/TELE/RN RECEIVED PATIENT FROM [facility] BY KAMRYN AT AROUND 0005. PATIENT WAS AWAKE, ALERT ORIENTED TO NAME ONLY, UNABLE TO STATE CORRECTLY HER BIRTHDAY, NO C/O PAIN, NO DISTRESS NOTED, MADE COMFORTABLE IN BED, UNABLE TO OBTAIN ADMISSION INFORMATION FROM THE PATIENT DUE TO MENTAL STATUS, PHYSICAL ASSESSMENT DONE, FALL PRECAUTIONS PER PROTOCOL IMPLEMENTED, PLACED CALL LIGHT IN REACH. WILL MONITOR.
[2020-10-05 04:48] VITALS: BP 181/84
--- NOTE | 2020-10-05 06:10 | NUR ---
MS/TELE/RN PATIENT IS AWAKE, CONFUSED, COMFORTABLE, NO SIGNS OF DISTRESS NOTED, CALL LIGHT IN REACH. ALL NEEDS ATTENDED AT THIS TIME, WILL CONTINUE TO MONITOR.
--- NOTE | 2020-10-05 07:25 | NUR ---
WAREHOUSE ORDER PULLER NOTES PATIENT IN BED ALERT ORIENTED X 2. NO ACUTE DISTRESS NOTED. BREATHING UNLABORED. IV ACCESS PATENT AND INTACT, NO REDNESS, NO SWELLING NOTED.SAFETY MEASURES IN PLACE. CALL LIGHT WITHIN REACH. WILL CONTINUE TO MONITOR ACCORDINGLY
[2020-10-05] MEDS: PANTOPRAZOLE 40 MG TABLET.DR PO SCH (07:49)
[2020-10-05 08:00] VITALS: BP 142/76
[2020-10-05] MEDS ORDERED: ASPIRIN 81 MG TAB.CHEW PO SCH (09:00)
[2020-10-05] MEDS ORDERED: LEVETIRACETAM (250 MG) 250 MG TABLET PO SCH (09:00)
[2020-10-05] MEDS ORDERED: PANTOPRAZOLE 40 MG TABLET.DR PO SCH (09:00)
[2020-10-05] MEDS: ASPIRIN 81 MG TAB.CHEW PO SCH (09:16)
[2020-10-05] MEDS: hydrALAZINE HCL 50 MG TABLET PO SCH ×3 (09:16→17:37)
[2020-10-05] MEDS: LEVETIRACETAM (250 MG) 250 MG TABLET PO SCH ×2 (09:17→21:50)
[2020-10-05] MEDS: NITROGLYCERIN 30 GM TUBE TP SCH ×2 (09:48→22:07)
[2020-10-05] MEDS: IV NS 0.9% 1,000 ML IV PRN ×2 (10:40→22:05)
[2020-10-05 12:00] VITALS: BP 125/67
[2020-10-05 16:00] VITALS: BP 142/82
--- NOTE | 2020-10-05 19:00 | NUR ---
STONEWORK SUPERVISOR NOTES PATIENT IN BED ALERT ORIENTED X 2. NO ACUTE DISTRESS NOTED. BREATHING UNLABORED. IV ACCESS PATENT AND INTACT, NO REDNESS, NO SWELLING NOTED.SAFETY MEASURES IN PLACE. CALL LIGHT WITHIN REACH. WILL ENDORSE TO NIGHT NURSE FOR CONTINUITY OF CARE.
[2020-10-05 20:00] VITALS: BP 132/75
[2020-10-05] MEDS ORDERED: HALOPERIDOL 1 MG TABLET PO SCH (22:00)
[2020-10-05 23:37] LABS: BILIRUBIN,URINE NEGATIVE (NEGATIVE); COLOR,URINE YELLOW (YELLOW); LEUKOCYTE ESTERASE ,URINE SMALL (NEGATIVE); NITRITE, URINE NEGATIVE (NEGATIVE); PROTEIN,URINE NEGATIVE (NEGATIVE); UGLUCOSE NEGATIVE (NEGATIVE); UROBILINOGEN,URINE 0.2 EU/dL (0.2)
[2020-10-06 00:05] LABS: BACTERIA,URINE Many /HPF (None Seen); RBC,URINE 0-2 /HPF (0-2); SQUAMOUS EPITHELIAL CELL,UR Few /HPF (None Seen); WBC,URINE 21-50 /HPF (0-3)
[2020-10-06 06:04] LABS: BASOPHILS # (AUTO) 0.1 /CMM (0.0-0.2); EOSINOPHILS % (AUTO) 4.4 % (0.0-6.0); HEMATOCRIT 32 % (33-45); HEMOGLOBIN 11.3 g/dL (11.5-14.8); LYMPHOCYTES # (AUTO) 1.9 /CMM (0.8-4.8); LYMPHOCYTES % (AUTO) 30.9 % (20.0-44.0); MEAN CORPUSCULAR HGB CONC 35 g/dl (31.0-36.0); MEAN CORPUSCULAR VOLUME 85 fL (82-100); MONOCYTES # (AUTO) 0.5 /CMM (0.1-1.30); MONOCYTES % (AUTO) 8.1 % (2.0-12.0); NEUTROPHILS # (AUTO) 3.4 /CMM (1.8-8.9); NEUTROPHILS % (AUTO) 55.6 % (43.0-81.0); PLATELET COUNT (AUTO) 88 /CMM (150-450); RED BLOOD CELL COUNT(AUTO) 3.79 MIL/uL (4.0-5.2); WHITE BLOOD COUNT (AUTO) 6.2 K/uL (4.3-11.0)
--- NOTE | 2020-10-06 06:12 | NUR ---
MS RN NOTES AWAKE & RESPONSIVE. NOT IN ANY DISTRESS. NO SOB NOTED. DENIES ANY PAIN OR DISCOMFORT AT THIS TIME. WITH IV-HL PATENT & INTACT. AM CARE DONE. MONITORED ACCORDINGLY. CALL LIGHT WITHIN REACH. BED IN LOWEST POSITION. SR UP X 3 WITH BED ALARM ON FOR SAFETY. WILL ENDORSE TO NEXT SHIFT.
[2020-10-06 06:56] LABS: ALBUMIN 3.3 g/dL (3.4-5.0); BILIRUBIN,TOTAL 0.8 mg/dL (0.2-1.0); CALCIUM, SERUM 8.7 mg/dL (8.5-10.1); PHOSPHORUS 3.7 mg/dL (2.5-4.9); POTASSIUM 3.8 mmol/L (3.5-5.1); TOTAL PROTEIN, SERUM 6.8 g/dL (6.4-8.2)
--- NOTE | 2020-10-06 07:00 | NUR ---
MS OPENING NOTE AWAKE & RESPONSIVE. NOT IN ANY DISTRESS. NO SOB NOTED. DENIES ANY PAIN OR DISCOMFORT AT THIS TIME. IV ON L. ARM PATENT & INTACT. AM CARE DONE. MONITORED ACCORDINGLY. CALL LIGHT WITHIN REACH. BED IN LOWEST POSITION. BED ALARM ON FOR SAFETY.
[2020-10-06 07:12] LABS: THYROID STIMULATING HORMONE 0.976 uIU/mL (0.358-3.74)
[2020-10-06 08:00] VITALS: BP 140/80
[2020-10-06] MEDS: LEVETIRACETAM (250 MG) 250 MG TABLET PO SCH (08:55)
[2020-10-06] MEDS: ASPIRIN 81 MG TAB.CHEW PO SCH (08:55)
[2020-10-06] MEDS: IV NS 0.9% 1,000 ML IV PRN (08:57)
[2020-10-06] MEDS: hydrALAZINE HCL 50 MG TABLET PO SCH ×3 (08:57→16:09)
[2020-10-06] MEDS: PANTOPRAZOLE 40 MG TABLET.DR PO SCH (08:59)
[2020-10-06] MEDS: NITROGLYCERIN 30 GM TUBE TP SCH (09:01)
[2020-10-06 10:20] LABS: BAND % (MANUAL) 1 % (0.0-5.0); EOSINOPHILS % (MANUAL) 5 % (0-4); LYMPHOCYTES % (MANUAL) 31 % (16-48); MONOCYTES % (MANUAL) 7 % (0-11.0); NEUTROPHILS % (MANUAL) 56 (42-76)
[2020-10-06] MEDS ORDERED: PANT40TA2 PO (13:49)
[2020-10-06] MEDS ORDERED: ASPI-1169 PO (13:49)
[2020-10-06] MEDS ORDERED: Nitroglycerin SL (13:49)
[2020-10-06] MEDS ORDERED: HYDR-4077 PO (13:49)
[2020-10-06] MEDS ORDERED: LEVE250T2 PO (13:49)
[2020-10-06 16:00] VITALS: BP 171/93
[2020-10-06 16:09] VITALS: BP 171/93
--- NOTE | 2020-10-06 16:28 | NUR ---
Patient going discharge to home, given discharge instruction to Son over the phone include new prescription, side effects, diet and follow up equal employment opportunity officer(Number and address in the packaged).
--- NOTE | 2020-10-06 18:18 | NUR ---
RN Closing note Patient in bed, remains A O x 2, able to responds all stimuli. Patient discharge to home and spoke with Son regarding condition and instruction. Skin is warm to touch, keep clean/dry. Keep elevated HOB for ensure airway and aspiration precaution, also lowest bed position for safety. Son will pic up patient between 1900 to 1930.Call light within reach, will endorse to lieutenant shift supervisor.
--- NOTE | 2020-10-06 19:55 | NUR ---
MS OWNER/OPERATOR NOTES PATIENT A/OX3; ABLE TO MAKE NEEDS KNOWN. ON ROOM AIR AND TOLERATING WELL WITH NO SOB. REMOVED IV ACCESS AND NO ACTIVE BLEEDING NOTED. ALL BELONGINGS WITH PATIENT AND SIGNED PATIENT BELONGINGS FORMS. PATIENT MEDICALLY STABLE, DENIES OF ANY PAIN. SON PICKED UP PATIENT.
== END 2020-10-06 19:55 | disposition home health service (06) | DRG 280 ==
LOC: ER 21:08 → EDBD 23:20 → TELE 23:20 → MED 10-05 12:06
PROVIDERS: ADMIT Nurse Practitioner Acute Care; ATTEND Nurse Practitioner Acute Care
DX: I21.4 Non-ST elevation (NSTEMI) myocardial infarction (principal); N17.0 Acute kidney failure with tubular necrosis; F20.0 Paranoid schizophrenia; G40.909 Epilepsy, unspecified, not intractable, without status epilepticus; I35.0 Nonrheumatic aortic (valve) stenosis; I10 Essential (primary) hypertension; F03.90 Unspecified dementia, unspecified severity, without behavioral disturbance, psychotic disturbance, mood disturbance, and anxiety; E78.5 Hyperlipidemia, unspecified; I12.9 Hypertensive chronic kidney disease with stage 1 through stage 4 chronic kidney disease, or unspecified chronic kidney disease; N18.9 Chronic kidney disease, unspecified; Z87.440 Personal history of urinary (tract) infections; Z95.2 Presence of prosthetic heart valve; Z20.822 Contact with and (suspected) exposure to COVID-19; F39 Unspecified mood [affective] disorder; R53.1 Weakness; Z91.19 Patient's noncompliance with other medical treatment and regimen
CPT/HCPCS: 36415; 70450-TC; 71045-TC; 80048-TC; 80053-TC; 80061-TC; 81001; 82962-TC; 83735-TC; 84100-TC; 84443-TC; 84484-TC; 85025-TC; 87081-TC; 87086-TC; 93307-TC; 97116-TC; 97530-TC; C9803; G0378; J1650; J3490; J7030

== ENCOUNTER 2021-01-26 11:05 | Outpatient (CLI) | payer MEDICARE, OTHER ==
[~2021-01-26 11:05] MED LIST changes: +ASPI-1169 PO; -ATOR40TA PO; -CEPH-569 PO; -HALO50AM2 IM; +HYDR-4077 PO; +LEVE250T2 PO; -LEVE500T9 PO; +Nitroglycerin SL; +PANT40TA2 PO
== END 2021-01-26 23:59 | disposition home or self-care (01) ==
LOC: MSC 11:05
PROVIDERS: ATTEND Internal Medicine
DX: I25.2 Old myocardial infarction (principal); G40.909 Epilepsy, unspecified, not intractable, without status epilepticus; F20.9 Schizophrenia, unspecified; I35.0 Nonrheumatic aortic (valve) stenosis; G89.29 Other chronic pain; M47.896 Other spondylosis, lumbar region

== ENCOUNTER 2021-12-15 10:40 | Outpatient (CLI) | payer MEDICARE, OTHER ==
[2021-12-15] MEDS ORDERED: HALO1TAB5 MT (18:20)
[2021-12-15] MEDS ORDERED: BENZ0.5T43 MT (18:20)
[2021-12-15] MEDS ORDERED: LEVE500T20 PO (18:20)
== END 2021-12-15 23:59 | disposition home or self-care (01) ==
LOC: MSC 10:40
PROVIDERS: ATTEND Internal Medicine
DX: F29 Unspecified psychosis not due to a substance or known physiological condition (principal); F20.9 Schizophrenia, unspecified; G40.909 Epilepsy, unspecified, not intractable, without status epilepticus; I25.2 Old myocardial infarction; Z95.9 Presence of cardiac and vascular implant and graft, unspecified; I35.0 Nonrheumatic aortic (valve) stenosis; Z95.2 Presence of prosthetic heart valve; E78.5 Hyperlipidemia, unspecified; M47.896 Other spondylosis, lumbar region; Z79.899 Other long term (current) drug therapy; Z91.19 Patient's noncompliance with other medical treatment and regimen

== ENCOUNTER 2021-12-15 12:02 | Inpatient (IN) | payer MEDICARE, OTHER ==
[~2021-12-15] VITALS: Ht 167.6 cm; Wt 70.3 kg
--- NOTE | 2021-12-15 12:02 | NUR ---
URINE COLLECTED AND SENT TO LAB
--- NOTE | 2021-12-15 12:10 | NUR ---
JORGE AND PMD DR DOOLEY FOR MEDICAL CLEARANCE OR POSSIBLE HALF-WAY PLACEMENT. REFUSED TO TAKE MEDS PER SON. PATIENT PLACE IN BED 12. VITALS CHECKED
--- NOTE | 2021-12-15 12:20 | NUR ---
IV CANNULA G20 INSERTED ON RIGHT AC. BLOOD DRAWN.
[2021-12-15 12:43] LABS: BASOPHILS # (AUTO) 0.1 K/uL (0.0-0.2); BASOPHILS % (AUTO) 0.9 % (0.0-2.0); EOSINOPHILS % (AUTO) 2.8 % (0.0-6.0); HEMATOCRIT 34 % (33-45); HEMOGLOBIN 11.4 g/dL (11.5-14.8); LYMPHOCYTES # (AUTO) 1.5 K/uL (0.8-4.8); LYMPHOCYTES % (AUTO) 24.1 % (20.0-44.0); MEAN CORPUSCULAR HGB CONC 34 g/dl (31.0-36.0); MEAN CORPUSCULAR VOLUME 84 fL (82-100); MONOCYTES # (AUTO) 0.5 K/uL (0.1-1.30); MONOCYTES % (AUTO) 8.9 % (2.0-12.0); NEUTROPHILS # (AUTO) 3.9 K/uL (1.8-8.9); NEUTROPHILS % (AUTO) 63.3 % (43.0-81.0); PLATELET COUNT (AUTO) 198 K/uL (150-450); WHITE BLOOD COUNT (AUTO) 6.1 K/uL (4.3-11.0)
[2021-12-15 13:02] LABS: ALANINE AMINOTRANSFERASE 14 U/L (12-78); ALBUMIN 3.3 g/dL (3.4-5.0); ALKALINE PHOSPHATASE 108 U/L (46-116); ASPARTATE AMINOTRANSFERASE 20 U/L (15-37); BILIRUBIN,DIRECT 0.1 mg/dL (0.0-0.2); BILIRUBIN,TOTAL 0.2 mg/dL (0.2-1.0); CALCIUM, SERUM 8.5 mg/dL (8.5-10.1); CARBON DIOXIDE 27 mmol/L (21-32); CHLORIDE 104 mmol/L (98-107); CREATININE 1.2 mg/dL (0.6-1.3); GLUCOSE 108 mg/dL (74-106); POTASSIUM 4.2 mmol/L (3.5-5.1); SODIUM SERUM 140 mmol/L (136-145); TOTAL PROTEIN, SERUM 7.4 g/dL (6.4-8.2); UREA NITROGEN, BLOOD 12 mg/dL (7-18)
[2021-12-15 13:14] LABS: BILIRUBIN,URINE NEGATIVE (NEGATIVE); COLOR,URINE YELLOW (YELLOW); LEUKOCYTE ESTERASE ,URINE NEGATIVE (NEGATIVE); NITRITE, URINE NEGATIVE (NEGATIVE); PH,URINE 6.5 (5.0-8.0); PROTEIN,URINE NEGATIVE (NEGATIVE); UGLUCOSE NEGATIVE (NEGATIVE); UROBILINOGEN,URINE 0.2 EU/dL (0.2)
[2021-12-15 13:35] LABS: ACETAMINOPHEN < 10 ug/ml (10-30); ALCOHOL, BLOOD < 3 mg/dL (0-0)
--- NOTE | 2021-12-15 13:57 | NUR ---
CALLED ART, BRAIN SURGEON, AND WAS NOTIFIED OF PT STATUS ETA 1500
--- NOTE | 2021-12-15 14:37 | NUR ---
SS Note: Pt. Is a 76-year-old Black female who was brought into the ER by son and PMD Dr. Soto for medical clearance. Per pt., she stated that her is 41 [not the same on face sheet]. Pt. was oriented x3, alert, and cooperative. During interview, pt. was capable of following directions and appeared groomed. Pt.'s speech was at a normal rate and pt.'s mood was elevated. Pt. reported no hx of mental health, substance abuse, suicidal ideation, or homicidal ideation. Pt. denies auditory hallucinations, visual hallucinations, paranoia, or delusions. SW explored pt.'s living situation. Per pt., she lives with her son Boni [[address] [facility] [address] [place] [id number]]. Pt. stated that she has not been taking her medication [Keppra] because it makes her feel "weird and funny." Per pt., she has been taking it for 3 years and has been refused to take it recently. Pt. reported that she does need any medications. Plan: Financial Services Technician Art will be coming to evaluate pt.
--- NOTE | 2021-12-15 15:21 | NUR ---
SEEN BY CLINICIAN ART
--- NOTE | 2021-12-15 15:40 | NUR ---
Patient placed on a 5150 per frozen foods manager Art under the care of Dr. Morse. Called Nurse Sup for bed
--- NOTE | 2021-12-15 15:46 | NUR ---
ROOM 218-A
--- NOTE | 2021-12-15 15:55 | NUR ---
REPORT GIVEN TO MADINA HERZOG FOR JUSTYN
--- NOTE | 2021-12-15 16:10 | NUR ---
JAYLEN Initial Discharge Plan: Pt currently resides at [address] [place] [address], [place] [address]; ([phone]). Patient son Boni ([phone]) stated he would want pt back home upon dc and he reported that he is the DPOA, he will send documents. Son stated pt would want a nursing facility, but he wants pt back home when she is stable. JAYLEN will work with the MD, treatment team, and family to help coordinate appropriate discharge.
--- NOTE | 2021-12-15 16:11 | NUR ---
JAYLEN Family Contact: JAYLEN spoke with patient's son Boni ([phone]) to gather collateral and discussed treatment plan and discharge plan. Son reported that he is the DPOA and that the file is in the chart. JAYLEN requested if file is not in the chart he can fax to this designer writer. Son reported that pt lives with him and he stated he prefers for her to come back home when stable and not to the facility.
--- NOTE | 2021-12-15 16:11 | NUR ---
JAYLEN Clinical Note: Pt is placed on a 5150 hold for GD. Pt brought to the hospital because pt was aggressive at her doctors office. Pt currently resides at [address] [place] [address]; ([phone]). Patient son Boni ([phone]) stated he would want pt back home upon dc and he reported that he is the DPOA, he will send documents. Son stated pt would want a nursing facility, but he wants pt back home when she is stable.
--- NOTE | 2021-12-15 16:30 | NUR ---
TRANSFERRED TO [facility] 218 IN STABLE CONDITION
[2021-12-15] MEDS ORDERED: ACETAMINOPHEN 325 MG TABLET PO PRN (17:00)
[2021-12-15] MEDS ORDERED: LORAZEPAM 1 MG TABLET PO PRN (17:00)
[2021-12-15] MEDS ORDERED: MAG HYDROX/AL HYDROX/SIMETH 30 ML UDC PO PRN (17:00)
[2021-12-15] MEDS ORDERED: HALO1TAB5 MT (18:20)
[2021-12-15] MEDS ORDERED: BENZ0.5T43 MT (18:20)
[2021-12-15] MEDS ORDERED: LEVE500T20 PO (18:20)
--- NOTE | 2021-12-15 18:30 | NUR ---
RN-ADMISSION NOTES PATIENT WAS BROUGHT IN THE UNIT VIA HOSPITAL WHEEL CHAIR WITH ONE ER STAFF AROUND 1640. UPON FACE TO FACE INTERVIEW ,PATIENT AWAKE,ALERT X2. PATIENT ON 5150 HOLD FOR GD ADULT. PER HOLD PATIENT IS REFUSING MEDS YELLING AND AGGRESSIVE AT AND TALKING TO SELF AT HOME. PATIENT IS COOPERATIVE DURING ADMISSION PROCESS. DONALD HUSAIN [phone] WAS MADE AWARE OF PATIENT ADMISSION . PER PATIENT SHE REFUSED COVID VACCINE .DR. BURGESS ( PSYCHIATRIST ) AND DR. PADILLA ( TOOL GRINDING MACHINE OPERATOR) MADE AWARE OF THE ADMISSION. PATIENT WAS IN BED AWAKE,ALERT X2,GUARDED,NO ACUTE DISTRESS NOTED. WILL CONT. MONITORING FOR SAFETY AND BEHAVIOR. WILL ENDORSE TO INCOMING NURSE FOR CONTINUITY OF CARE. Addendum: 12/15/21 at 1926 by MADINA RIOS RN PATIENT AMBULATORY WITH STEADY GAIT.
[2021-12-15 19:43] VITALS: BP 149/74
[2021-12-15 20:00] VITALS: BP 149/74
[2021-12-15] MEDS ORDERED: LORAZEPAM INJ 2 MG/ML VIAL IV PRN (21:00)
[2021-12-15] MEDS ORDERED: MAGNESIUM HYDROXIDE 30 ML UDC PO PRN (21:00)
[2021-12-15] MEDS ORDERED: ZOLPIDEM TARTRATE 5 MG TABLET PO PRN (22:00)
[2021-12-16 07:08] LABS: CHOLESTEROL 173 mg/dL (<200); HDL CHOLESTEROL 61 mg/dL (40-60); LDL 96 mg/dL (0-99); TRIGLYCERIDES 58 mg/dL (30-150)
[2021-12-16 08:00] VITALS: BP 155/71
[2021-12-16] MEDS: LEVETIRACETAM (250 MG) 250 MG TABLET PO SCH ×3 (08:22→17:00)
--- NOTE | 2021-12-16 09:34 | NUR ---
Pt. refused to take Keppra, offered 3x and explained on the importance and still refusing and stating "I never had seizure".
--- NOTE | 2021-12-16 09:45 | NUR ---
RN Notes: Received pt. awake in bed, responsive to staffs. Pt. ate 100% for breakfast, pt. refused to take Keppra, offered 3x and explained on the importance and still refusing and stating "I never had seizure". Pt. is suspicious and guarded upon approached. Encouraged to verbalize feelings and motivated to attend group activity. Needs attended and will continue to monitor for safety.
[2021-12-16] MEDS: HALOPERIDOL 1 MG TABLET PO SCH ×2 (11:00→17:00)
[2021-12-16] MEDS: BENZTROPINE MESYLATE (1 MG) 1 MG TABLET PO SCH ×2 (11:00→17:00)
--- NOTE | 2021-12-16 11:48 | NUR ---
Pt. refused to Haldol po and Cogentin po. Explained on te importance and still refusing said " I don't brandyn medications". Will continue to monitor for safety.
[2021-12-16 16:00] VITALS: BP 125/65
--- NOTE | 2021-12-16 17:18 | NUR ---
Pt. refused to take meds due for 1700 (Haldol po, Cogentin po and Keppra po). Explained on the importance and still refusing said " I don't need medications". Will continue to monitor for safety.
[2021-12-16 20:02] VITALS: BP 132/63
[2021-12-16 20:26] VITALS: BP 132/63
--- NOTE | 2021-12-17 07:31 | NUR ---
RN Note: Received pt. awake in bed, responsive to staff. Refused all RX Pt. is suspicious and guarded upon approached. Encouraged to verbalize feelings and motivated to attend group activity. Needs attended and will continue to monitor for safety.
[2021-12-17 08:00] VITALS: BP 150/72
[2021-12-17] MEDS: HALOPERIDOL 1 MG TABLET PO SCH ×2 (08:40→16:00)
[2021-12-17] MEDS: LEVETIRACETAM (250 MG) 250 MG TABLET PO SCH ×2 (08:40→16:00)
[2021-12-17] MEDS: BENZTROPINE MESYLATE (1 MG) 1 MG TABLET PO SCH ×2 (08:40→16:00)
[2021-12-17 16:00] VITALS: BP 111/54
[2021-12-17 20:24] VITALS: BP 125/55
--- NOTE | 2021-12-18 03:28 | NUR ---
GPS RN NOTES: UNWITNESSED FALL While HANDBOOK WRITER rounds, patient found lying on the floor in her right side. Bed in lowest position, bed alarm did not sounds. Patient denies any pain, skin checked done with MINO Nascimento, no skin injury noted. Patient appears confused, Oriented to self only. Patient hosp gown wet with her urine when found on the floor. Able to stand up and walk back to bed with 2 person assist, appears weak. When first asked what happened, states she did not fall, was trying to find some water. Provided clean and dry clothes. VS taken, within normal. Patient remains confused, oriented to self only, disoriented. Asked patient what is she trying to do on the fstates she fell on the floor. Informed Dr. Morse and mining machinery assembler. [address] Tony Chambers, will place order.
[2021-12-18 03:35] VITALS: BP 146/71
--- NOTE | 2021-12-18 04:12 | NUR ---
FOR CT CERVICAL SPINE/ CT HEAD WO CONTRAST Returned to patient room for CT Cervical Spine/ CT Head ordered. Patient unresponsive, streak of blood from her mouth noted. Rapid response called, arrived in 1 minute. Patient transferred to ED. 4836 Notified HANNY Chambers.
--- NOTE | 2021-12-18 04:16 | NUR ---
TRANSFERRED PATIENT 0416 VS BP 146/57 Pulse 89. Oxygenation in high 90's. With rapid response team, patient transferred to ED by bed, responsive to tactile stimuli.
--- NOTE | 2021-12-18 06:31 | NUR ---
INFORMED FAMILY Called Boni Glass/patient's son, informed him on fall incident and patients transferred to ED. Boni appreciated the call.
--- NOTE | 2021-12-18 07:00 | NUR ---
GPS RN NOTES Per Dr. Soto patient will transferred back to unit, no dc.
--- NOTE | 2021-12-18 08:35 | NUR ---
RN-NOTES PATIENT WAS BROUGHT BACK IN THE UNIT BY ONE ER STAFF VIA HOSPITAL BED. PATIENT IS AWAKE, ALERT X2 NO ACUTE DISTRESS NOTED. PATIENT WAS ASSISTED BACK IN THE BED, BOTH SIDE RAILS UP,SZ PRECAUTIONS OBSERVED. WILL CONT. MONITORING FOR SAFETY AND BEHAVIOR. DR. BURGESS( PSYCHIATRIST) AND DR. DOOLEY ( STIFF STRAW HAT WASHER) MADE AWARE.
[2021-12-18 09:00] VITALS: BP 143/70
[2021-12-18] MEDS: LEVETIRACETAM (250 MG) 250 MG TABLET PO SCH ×2 (10:14→16:21)
[2021-12-18] MEDS: BENZTROPINE MESYLATE (1 MG) 1 MG TABLET PO SCH ×2 (10:14→16:21)
[2021-12-18] MEDS: HALOPERIDOL 1 MG TABLET PO SCH ×2 (10:15→16:21)
[2021-12-18 16:00] VITALS: BP 102/56
--- NOTE | 2021-12-18 17:37 | NUR ---
RN-NOTES CAD DRAFTSMAN TRIED TO CALL PATIENT'S SON DONALD YANEZ @ [phone] AND LEFT A VOICE MESSAGE.
--- NOTE | 2021-12-18 17:43 | NUR ---
RN-NOTES PATIENT LYING IN BED AWAKE,ALERT X2, GUARDED,REFUSED GROUPS ACTIVITIES DESPITE ENCOURAGEMENT. PREFERS TO STAY IN THE ROOM AND SLEEP.NO ACUTE DISTRESS NOTED. COMPLIANT WITH MEDICATIONS.AMBULATORY STEADY GAIT. ALL NEEDS ATTENDED AND ANTICIPATED. WILL CONT. MONITORING FOR SAFETY AND BEHAVIOR.WILL ENDORSE TO INCOMING NURSE FOR CONTINUITY OF CARE.
--- NOTE | 2021-12-18 19:30 | NUR ---
GPS RN NOTES RECEIVED PATIENT LYING IN BED WITH EYES CLOSED. EASY TO AROUSE. A/O X2 CALM. NOT IN APPARENT DISTRESS. DENIES PAIN AT THIS TIME. AMBULATORY WITH STEADY GAIT. BED LOW AND LOCKED, SIDE RAILS UP X2. WILL CONT. MONITORING FOR SAFETY AND BEHAVIOR.
[2021-12-18 20:00] VITALS: BP 102/55
--- NOTE | 2021-12-19 06:22 | NUR ---
GPS RN NOTES PATIENT LYING IN BED QUIETLY, AWAKE. A/O X2-3 CALM, DISHEVELED, IRRITABLE, PARANOID. NO C/O PAIN AT THIS TIME. NO S/S OF DISTRESS NOTED. BREATHING EVEN AND NON-LABORED ON ROOM AIR. DENIES SI/HI AT THIS TIME. ALL NEEDS ANTICIPATED. AMBULATORY WITH STEADY GAIT. SAFETY PRECAUTIONS IN PLACE: BED LOW AND LOCKED, SIDE RAILS UP X2. NO SEIZURE EPISODE AT THIS TIME. WILL CONT. MONITORING FOR SAFETY AND BEHAVIOR. WILL ENDORSE TO AM NURSE FOR CONTINUITY OF CARE.
[2021-12-19 06:49] VITALS: BP 102/55
[2021-12-19 07:09] LABS: CALCIUM, SERUM 9.1 mg/dL (8.5-10.1); CREATININE 1.3 mg/dL (0.6-1.3); MAGNESIUM 2.2 mg/dL (1.8-2.4); PHOSPHORUS 4.1 mg/dL (2.5-4.9); POTASSIUM 4.4 mmol/L (3.5-5.1)
[2021-12-19 07:38] LABS: BASOPHILS % (AUTO) 0.5 % (0.0-2.0); EOSINOPHILS % (AUTO) 1.7 % (0.0-6.0); HEMATOCRIT 33 % (33-45); HEMOGLOBIN 11.3 g/dL (11.5-14.8); LYMPHOCYTES # (AUTO) 2.7 K/uL (0.8-4.8); LYMPHOCYTES % (AUTO) 31.6 % (20.0-44.0); MEAN CORPUSCULAR HGB CONC 35 g/dl (31.0-36.0); MEAN CORPUSCULAR VOLUME 83 fL (82-100); MONOCYTES # (AUTO) 0.7 K/uL (0.1-1.30); MONOCYTES % (AUTO) 8.2 % (2.0-12.0); PLATELET COUNT (AUTO) 175 K/uL (150-450); RED BLOOD CELL COUNT(AUTO) 3.95 MIL/uL (4.0-5.2); WHITE BLOOD COUNT (AUTO) 8.6 K/uL (4.3-11.0)
[2021-12-19 08:00] VITALS: BP 103/55
--- NOTE | 2021-12-19 09:17 | NUR ---
RN-CO: Notified DR Morse that the Ries[facility] hearing will be tomm. . time to follow.
--- NOTE | 2021-12-19 09:46 | NUR ---
JAYLEN Note: SW met with patient to discuss discharge planning. She expressed she is unsure if she wants to go back home or would want a nursing facility. JAYLEN will follow up with pt in the next couple of days.
[2021-12-19] MEDS: HALOPERIDOL 1 MG TABLET PO SCH ×2 (09:52→16:11)
[2021-12-19] MEDS: LEVETIRACETAM (250 MG) 250 MG TABLET PO SCH ×2 (09:52→16:11)
[2021-12-19] MEDS: BENZTROPINE MESYLATE (1 MG) 1 MG TABLET PO SCH ×2 (09:52→16:11)
--- NOTE | 2021-12-19 14:09 | NUR ---
COURT: JAYLEN SPOKE WITH COURT ([phone]) AND SPOKE WITH CHIKIS WHO STATED RIESE WILL BE SCHEDULED AT 10AM.
[2021-12-19 16:00] VITALS: BP 144/70
[2021-12-19 20:00] VITALS: BP 137/64
[2021-12-20 08:00] VITALS: BP 150/81
[2021-12-20] MEDS: BENZTROPINE MESYLATE (1 MG) 1 MG TABLET PO SCH ×2 (08:48→17:20)
[2021-12-20] MEDS: LEVETIRACETAM (250 MG) 250 MG TABLET PO SCH ×2 (08:48→17:20)
[2021-12-20] MEDS: HALOPERIDOL 1 MG TABLET PO SCH ×2 (08:48→17:20)
[2021-12-20] MEDS ORDERED: HALOPERIDOL LACTATE INJ 5 MG/ML VIAL IM PRN (11:00)
[2021-12-20 16:00] VITALS: BP 150/70
--- NOTE | 2021-12-20 19:20 | NUR ---
GPS RN NOTES RECEIVED LYING ON BED ON RIGHT SIDE POSITION,BREATHING REGULAR,NOT IN ANY FORM OF DISTRESS.CALM AND QUIET ON BED,SIDE RAILS PADDED FOR SEIZURE PRECAUTION.FALL PRECAUTION OBSERVED,BED ON LOWEST POSITION AND LOCKED,BED ALARM TRIGGERED.WILL CONTINUE TO MONITOR BEHAVIOR.
[2021-12-20 20:00] VITALS: BP 163/84
--- NOTE | 2021-12-21 01:11 | NUR ---
GPS RN NOTES AWAKE,AMBIEN 5MG PO GIVEN ORDERED FOR INSOMNIA.
--- NOTE | 2021-12-21 06:41 | NUR ---
GPS RN NOTES FAIRLY RESTED,ON KAREN CHAIT THIS TIME,HAS TENDENCY TO GET UP AND WALK BY HERSELF,UNSTEADY GAIT.NO FALL ON MY SHIFT.
[2021-12-21 08:00] VITALS: BP 159/80
--- NOTE | 2021-12-21 08:23 | NUR ---
SNF Referral: JAYLEN sent clinicals to Joi bang from [facility] ([phone]) for placement. SW sent H & P, progress notes, and laboratory.
[2021-12-21] MEDS: HALOPERIDOL 1 MG TABLET PO SCH ×2 (08:36→16:24)
[2021-12-21] MEDS: BENZTROPINE MESYLATE (1 MG) 1 MG TABLET PO SCH ×2 (08:36→16:24)
[2021-12-21] MEDS: LEVETIRACETAM (250 MG) 250 MG TABLET PO SCH ×2 (08:37→16:24)
--- NOTE | 2021-12-21 09:46 | NUR ---
SNF Contact: SW spoke with Joi bang from [facility] ([phone]) who stated pt is accepted.
--- NOTE | 2021-12-21 10:19 | NUR ---
JAYLEN Family Contact: JAYLEN contacted pt's son Boni ([phone]) and notified that pt is accepted at [facility] and he was agreeable with this.
[2021-12-21 16:00] VITALS: BP 158/76
--- NOTE | 2021-12-21 17:36 | NUR ---
RN-NOTES PATIENT IN THE DAY ROOM AWAKE,ALERT X2,CALM,NO ACUTE DISTRESS NOTED.NO ACUTE DISTRESS NOTED. COMPLIANT WITH MEDICATIONS.AMBULATORY STEADY GAIT. ALL NEEDS ATTENDED AND ANTICIPATED. WILL CONT. MONITORING FOR SAFETY AND BEHAVIOR.WILL ENDORSE TO INCOMING NURSE FOR CONTINUITY OF CARE.
[2021-12-21 19:45] VITALS: BP 174/76
--- NOTE | 2021-12-21 19:53 | NUR ---
GPS RN NOTE: PATIENT IS NOTED TO BE ANXIOUS AND RESTLESS. PRN ATIVAN 1 MG PO ADMINISTERED. WILL CONTINUE TO MONITOR FOR ANY CHANGE OF CONDITION.
[2021-12-21 19:55] VITALS: BP 160/83
[2021-12-21 20:00] VITALS: BP 166/79
[2021-12-21 21:30] VITALS: BP 148/84
[2021-12-22 08:00] VITALS: BP 143/78
[2021-12-22] MEDS: LEVETIRACETAM (250 MG) 250 MG TABLET PO SCH ×2 (09:00→16:49)
[2021-12-22] MEDS: BENZTROPINE MESYLATE (1 MG) 1 MG TABLET PO SCH ×2 (09:00→16:49)
[2021-12-22] MEDS ORDERED: HALOPERIDOL DECANOATE IM 100 MG/ML AMPUL IM SCH (09:00)
[2021-12-22] MEDS: HALOPERIDOL 1 MG TABLET PO SCH ×2 (09:00→16:49)
--- NOTE | 2021-12-22 09:00 | NUR ---
GPS/RN RECEIVED PATIENT RESTING IN HER ROOM,ALERT X2,CALM,NO ACUTE DISTRESS NOTED. COMPLIANT WITH DAILY MEDICATIONS WITH ENCOURAGEMENT. ALL NEEDS ATTENDED AND ANTICIPATED. WILL CONTINUE MONITORING Q 15MIN FOR SAFETY BEHAVIOR.
[2021-12-22 16:00] VITALS: BP 140/69
[2021-12-23 08:00] VITALS: BP 135/72
[2021-12-23] MEDS: LEVETIRACETAM (250 MG) 250 MG TABLET PO SCH ×2 (08:10→17:05)
[2021-12-23] MEDS: BENZTROPINE MESYLATE (1 MG) 1 MG TABLET PO SCH ×2 (08:10→17:05)
[2021-12-23] MEDS: HALOPERIDOL 1 MG TABLET PO SCH ×2 (08:10→17:05)
[2021-12-23 16:00] VITALS: BP 121/61
[2021-12-23 19:40] VITALS: BP 123/63
--- NOTE | 2021-12-24 07:08 | NUR ---
PATIENT SLEPT WELL AT NIGHT, MED COMPLAINT, COOPERATIVE, CALM BUT GUARDED, ISOLATIVE. WILL ENDORSE TO AM RN.
[2021-12-24] MEDS: LEVETIRACETAM (250 MG) 250 MG TABLET PO SCH ×2 (08:21→16:50)
[2021-12-24] MEDS: BENZTROPINE MESYLATE (1 MG) 1 MG TABLET PO SCH ×2 (08:21→16:50)
[2021-12-24] MEDS: HALOPERIDOL 1 MG TABLET PO SCH ×2 (08:21→16:50)
--- NOTE | 2021-12-24 09:00 | NUR ---
GPS/RN RECEIVED PATIENT RESTING IN HER ROOM, ALERT X2,CALM, NO ACUTE DISTRESS NOTED. COMPLIANT WITH DAILY MEDICATIONS WITH ENCOURAGEMENT. ALL NEEDS ATTENDED AND ANTICIPATED. WILL CONTINUE MONITORING Q 15MIN FOR SAFETY AND BEHAVIOR.
[2021-12-24 20:00] VITALS: BP 148/70
--- NOTE | 2021-12-25 06:47 | NUR ---
RN CLOSING NOTE PATIENT SLEEPING IN BED, ALERT/ORIENTED X 2. PATIENT CALM AND COOPERATIVE DURING SHIFT, NO SIGNIFICANT CHANGES, PATIENT SLEPT WELL THROUGHOUT THE NIGHT. PATIENT DENIED PAIN OR DISCOMFORT. NO SCHEDULED MEDICATIONS THIS SHIFT. PATIENT NEEDS MET THROUGHOUT SHIFT. PATIENT AMBULATORY TO BATHROOM. SAFETY MEASURES MAINTAINED WITH Q15 MIN CHECKS. WILL ENDORSE TO DAY SHIFT NURSE FOR CONTINUITY OF CARE
[2021-12-25 08:00] VITALS: BP 141/67
[2021-12-25] MEDS: LEVETIRACETAM (250 MG) 250 MG TABLET PO SCH ×2 (08:01→16:59)
[2021-12-25] MEDS: HALOPERIDOL 1 MG TABLET PO SCH ×2 (08:01→17:00)
[2021-12-25] MEDS: BENZTROPINE MESYLATE (1 MG) 1 MG TABLET PO SCH ×2 (08:02→16:59)
--- NOTE | 2021-12-25 09:36 | NUR ---
SNF Referral: JAYLEN sent clinicals to Dann from [facility] ([phone]) for placement option. SW sent H & P, progress notes, and medication list.
--- NOTE | 2021-12-25 09:36 | NUR ---
JAYLEN Note: JAYLEN and Dr. Morse met with pt in regards to pt being accepted at [facility]. Pt reported that she wants a different facility. SW will find a different facility.
--- NOTE | 2021-12-25 11:34 | NUR ---
SNF Contact: SW received a call from Dann from [facility] ([phone]) who stated pt is accepted.
--- NOTE | 2021-12-25 11:35 | NUR ---
JAYLEN Family Contact: JAYLEN spoke with patient's son Buster ([phone]) and notified that pt does not want to go to [facility] and got accepted at [facility]. He was agreeable. He reported that if the facility can notify him when her SNF days will run out. JAYLEN notified Dann and Alex from [facility].
--- NOTE | 2021-12-25 11:44 | NUR ---
JAYLEN Note: SW spoke with patient and stated she is accepted at [facility] and she was agreeable of this.
[2021-12-25 16:00] VITALS: BP 157/76
--- NOTE | 2021-12-25 18:42 | NUR ---
RN-NOTES PATIENT LAYING IN BED AWAKE,ALERT X2,CALM,NO ACUTE DISTRESS NOTED. COMPLIANT WITH MEDICATIONS.AMBULATORY STEADY GAIT. ALL NEEDS ATTENDED AND ANTICIPATED. WILL CONT. MONITORING FOR SAFETY AND BEHAVIOR.WILL ENDORSE TO INCOMING NURSE FOR CONTINUITY OF CARE.
[2021-12-25 19:54] VITALS: BP 136/62
[2021-12-26 08:00] VITALS: BP 137/75
[2021-12-26] MEDS: HALOPERIDOL 1 MG TABLET PO SCH (08:27)
[2021-12-26] MEDS: LEVETIRACETAM (250 MG) 250 MG TABLET PO SCH (08:27)
[2021-12-26] MEDS: BENZTROPINE MESYLATE (1 MG) 1 MG TABLET PO SCH (08:27)
--- NOTE | 2021-12-26 09:19 | NUR ---
SW Discharge Note: Patient will be discharged to care home facility [facility] [address] [facility], [place] [address]; ). Please arrange transportation at 1PM. Telecommunications Manager spoke with Dann cooker sulfate at [facility]; ([phone]), who stated patient will be accepted today. Patients magnolia Harrison ([phone]) is aware and agreeable.. Patient is alert and oriented x2 and is unable to plan for self-care. Patient denies any suicidal or homicidal ideations. Patient will follow-up at the facility with Dr. Morse (psychiatrist) [address] [address]; ([phone]) and (Pressure Steamer Tender) Dr. Soto [address] [facility] [address], [place] [address]; ([phone]). Patient presents with euthymic mood and congruent affect.
--- NOTE | 2021-12-26 09:55 | NUR ---
RN-CO: DISCHARGE NOTE: Patient is a/o x 4, able to make needs known, denied pain and discomforts and no acute distress noted. She denied suicidal and homicidal ideation. She denied AH/VH. Dr Morse seen and examined her and ordered to discontinue hold and discharge patient to [facility], noted and carried out. Patient's son Hunter ([phone] is aware and agreeable. All valuables will be given back to her, patient signed all discharge papers and verbalized understanding. Report will be given to RN receiving the patient.
--- NOTE | 2021-12-26 10:00 | NUR ---
RN-CO: DR Shaan Colon medically cleared patient for discharge. Report was given to Eulogio HERZOG.
--- NOTE | 2021-12-26 13:13 | NUR ---
RN-CO: Patient was picked up by ambulance.
== END 2021-12-26 13:18 | DRG 885 ==
LOC: ER 12:02 → GPS 15:52
PROVIDERS: ADMIT Psychiatry & Neurology Psychiatry; ATTEND Internal Medicine
DX: F20.0 Paranoid schizophrenia (principal); F03.90 Unspecified dementia, unspecified severity, without behavioral disturbance, psychotic disturbance, mood disturbance, and anxiety; G40.909 Epilepsy, unspecified, not intractable, without status epilepticus; E78.5 Hyperlipidemia, unspecified; F32.A Depression, unspecified; G89.29 Other chronic pain; I10 Essential (primary) hypertension; I25.2 Old myocardial infarction; Z79.82 Long term (current) use of aspirin; Z95.2 Presence of prosthetic heart valve; M47.896 Other spondylosis, lumbar region; Z73.6 Limitation of activities due to disability; M62.81 Muscle weakness (generalized); F41.9 Anxiety disorder, unspecified; F32.9 Major depressive disorder, single episode, unspecified; Z79.899 Other long term (current) drug therapy; Z20.822 Contact with and (suspected) exposure to COVID-19
CPT/HCPCS: 36415; 80048-TC; 80061-TC; 80076-TC; 82962-TC; 83735-TC; 84100-TC; 85025-TC; 87081-TC; C9803; G0480; J1631

== ENCOUNTER 2021-12-18 04:16 | Emergency (ER) | payer MEDICARE, OTHER ==
[~2021-12-18] VITALS: Ht 167.6 cm; Wt 70.3 kg
[~2021-12-18 04:16] MED LIST changes: -ASPI-1169 PO; -HALO2TAB2 PO; -HYDR-4077 PO; -LEVE250T2 PO; +LEVE500T20 PO; -Nitroglycerin SL; -PANT40TA2 PO
--- NOTE | 2021-12-18 04:19 | NUR ---
BROUGHT IN VIA [facility] FROM [facility] UNIT AT [facility] FOR AMS S/P UNWITNESSED FALL ON UNIT. PER RN PT HAS BEEN NON-COMPLIENT WITH MEDICATIONS AND HAS HX OF SEIZURES. PER RN PT HAD AN EPISODE OF URINE INCONTINENCE S/P FALL. SUPERIFICAL LACERATION NOTED INSIDE MOUTH AT THE R LOWER CHEEK. PT ORIENTED X0, SEIZURE PRECAUTIONS IMPLEMENTED, PLACED ON CHEMICAL PLANT OPERATOR, AND CERVICAL COLLAR APPLIED. MD WAS AT THE BEDSIDE FOR EVAL.
[2021-12-18] MEDS ORDERED: LEVETIRACETAM (500MG) 500 MG/5 ML VIAL IV ONE (04:26)
[2021-12-18] MEDS ORDERED: TDAP [DIPH/PERTUSSIS/TET] 0.5 ML VIAL IM ONE ×2 (04:27→04:30)
[2021-12-18] MEDS ORDERED: LEVETIRACETAM (500MG) 500 MG in IV NS 0.9% 100 ML IV SCH ×2 (04:30→18:00)
--- NOTE | 2021-12-18 04:32 | NUR ---
BLOOD COLLECTED AND SENT TO LAB
--- NOTE | 2021-12-18 04:40 | NUR ---
PT TAKEN FOR CT SCAN
[2021-12-18 04:46] LABS: BASOPHILS # (AUTO) 0.1 K/uL (0.0-0.2); BASOPHILS % (AUTO) 0.6 % (0.0-2.0); EOSINOPHILS % (AUTO) 2.3 % (0.0-6.0); HEMATOCRIT 35 % (33-45); HEMOGLOBIN 11.7 g/dL (11.5-14.8); LYMPHOCYTES # (AUTO) 5.7 K/uL (0.8-4.8); MEAN CORPUSCULAR HGB CONC 34 g/dl (31.0-36.0); MEAN CORPUSCULAR VOLUME 85 fL (82-100); MONOCYTES % (AUTO) 7.2 % (2.0-12.0); NEUTROPHILS # (AUTO) 7.4 K/uL (1.8-8.9); NEUTROPHILS % (AUTO) 50.9 % (43.0-81.0); PLATELET COUNT (AUTO) 205 K/uL (150-450); RED BLOOD CELL COUNT(AUTO) 4.09 MIL/uL (4.0-5.2); WHITE BLOOD COUNT (AUTO) 14.5 K/uL (4.3-11.0)
[2021-12-18 05:01] LABS: CALCIUM, SERUM 9.1 mg/dL (8.5-10.1); CARBON DIOXIDE 15 mmol/L (21-32); CHLORIDE 103 mmol/L (98-107); CREATININE 1.5 mg/dL (0.6-1.3); GLUCOSE 151 mg/dL (74-106); POTASSIUM 3.7 mmol/L (3.5-5.1); SODIUM SERUM 141 mmol/L (136-145); UREA NITROGEN, BLOOD 22 mg/dL (7-18)
--- NOTE | 2021-12-18 05:05 | NUR ---
URINE COLLECTED AND SENT TO LAB
[2021-12-18 05:08] LABS: ALANINE AMINOTRANSFERASE 15 U/L (12-78); ALBUMIN 3.4 g/dL (3.4-5.0); ALKALINE PHOSPHATASE 114 U/L (46-116); ASPARTATE AMINOTRANSFERASE 21 U/L (15-37); BILIRUBIN,DIRECT 0.1 mg/dL (0.0-0.2); BILIRUBIN,TOTAL 0.2 mg/dL (0.2-1.0); TOTAL PROTEIN, SERUM 7.9 g/dL (6.4-8.2)
[2021-12-18 05:10] LABS: ALCOHOL, BLOOD < 3 mg/dL (0-0)
--- NOTE | 2021-12-18 05:43 | NUR ---
MRSA SWAB COLLECTED AND SENT TO LAB.
[2021-12-18] MEDS ORDERED: LORAZEPAM INJ 2 MG/ML VIAL IV PRN (06:00)
[2021-12-18] MEDS ORDERED: MAGNESIUM HYDROXIDE 30 ML UDC PO PRN (06:00)
[2021-12-18] MEDS ORDERED: ACETAMINOPHEN 325 MG TABLET PO PRN (06:00)
[2021-12-18] MEDS ORDERED: ONDANSETRON HCL/PF 4 MG/2 ML VIAL IVP PRN (06:00)
[2021-12-18] MEDS ORDERED: IV 1/2NS 1000 ML 1,000 ML IV PRN (06:00)
[2021-12-18] MEDS ORDERED: Z GUARD REMEDY 4 OZ OINT TP PRN (06:00)
[2021-12-18 06:47] LABS: BILIRUBIN,URINE NEGATIVE (NEGATIVE); COLOR,URINE YELLOW (YELLOW); LEUKOCYTE ESTERASE ,URINE NEGATIVE (NEGATIVE); NITRITE, URINE NEGATIVE (NEGATIVE); PH,URINE 5.5 (5.0-8.0); PROTEIN,URINE 30 mg/dl (NEGATIVE); UGLUCOSE NEGATIVE (NEGATIVE); UROBILINOGEN,URINE 0.2 EU/dL (0.2)
[2021-12-18 06:55] LABS: BACTERIA,URINE Rare /HPF (None Seen); SQUAMOUS EPITHELIAL CELL,UR Few /HPF (None Seen); WBC,URINE 0-2 /HPF (0-3)
--- NOTE | 2021-12-18 07:15 | NUR ---
PER GPS RN FA, HOLD WILL NOT BE BROKEN UNTIL PSYCH DOCTOR EVALUATES PATIENT.
[2021-12-18] MEDS ORDERED: PANTOPRAZOLE 40 MG TABLET.DR PO SCH (07:30)
--- NOTE | 2021-12-18 07:47 | NUR ---
ROOM 218-1
[2021-12-18] MEDS ORDERED: PANTOPRAZOLE 40 MG TABLET.DR PO ONE (08:07)
[2021-12-18 08:10] VITALS: BP 159/84
--- NOTE | 2021-12-18 08:15 | NUR ---
IV removed. Catheter intact and site benign. Pressure and 4x4 applied to site. No bleeding noted.
[2021-12-18] MEDS ORDERED: LEVETIRACETAM (250 MG) 250 MG TABLET PO SCH (09:00)
== END 2021-12-18 08:25 ==
LOC: ER 04:18 → TRANSITION 07:24 → UNDOADMIN 07:24 → GPS 08:08 → TRANSITION 08:08
DX: S22.049A Unspecified fracture of fourth thoracic vertebra, initial encounter for closed fracture (principal); S01.512A Laceration without foreign body of oral cavity, initial encounter; G40.909 Epilepsy, unspecified, not intractable, without status epilepticus; I10 Essential (primary) hypertension; Z79.82 Long term (current) use of aspirin; Z79.899 Other long term (current) drug therapy; W19.XXXA Unspecified fall, initial encounter; Y93.89 Activity, other specified; Y92.89 Other specified places as the place of occurrence of the external cause; Y99.8 Other external cause status
CPT/HCPCS: 36415; 70450; 71045; 72125; 80048; 80076; 80307; 80320; 81001; 82962; 84484; 85025; 85730; 87081; 90471; 90715; 93005; 96365; 99285; J1953 ×2; J7030 ×2; L0172; G0480

== ENCOUNTER 2022-08-06 10:05 | Outpatient (CLI) | payer MEDICARE, OTHER ==
[2022-08-06 11:06] LABS: BASOPHILS % (AUTO) 0.4 % (0.0-2.0); EOSINOPHILS % (AUTO) 2.7 % (0.0-6.0); HEMATOCRIT 37 % (33-45); HEMOGLOBIN 12.5 g/dL (11.5-14.8); LYMPHOCYTES # (AUTO) 1.8 K/uL (0.8-4.8); LYMPHOCYTES % (AUTO) 25.9 % (20.0-44.0); MEAN CORPUSCULAR HGB CONC 34 g/dl (31.0-36.0); MEAN CORPUSCULAR VOLUME 86 fL (82-100); MONOCYTES # (AUTO) 0.5 K/uL (0.1-1.30); NEUTROPHILS # (AUTO) 4.4 K/uL (1.8-8.9); PLATELET COUNT (AUTO) 105 K/uL (150-450); RED BLOOD CELL COUNT(AUTO) 4.29 MIL/uL (4.0-5.2); WHITE BLOOD COUNT (AUTO) 6.9 K/uL (4.3-11.0)
[2022-08-06 12:15] LABS: ALBUMIN 3.7 g/dL (3.4-5.0); BILIRUBIN,TOTAL 0.3 mg/dL (0.2-1.0); CALCIUM, SERUM 8.7 mg/dL (8.5-10.1); CREATININE 1.1 mg/dL (0.6-1.3); TOTAL PROTEIN, SERUM 7.7 g/dL (6.4-8.2)
[2022-08-06 12:25] LABS: THYROID STIMULATING HORMONE 1.153 uIU/mL (0.358-3.74)
== END 2022-08-06 23:59 | disposition home or self-care (01) ==
LOC: MSC 10:05
PROVIDERS: ATTEND Internal Medicine
DX: Z09 Encounter for follow-up examination after completed treatment for conditions other than malignant neoplasm (principal); Z02.71 Encounter for disability determination; I25.2 Old myocardial infarction; I10 Essential (primary) hypertension; G40.909 Epilepsy, unspecified, not intractable, without status epilepticus; F20.9 Schizophrenia, unspecified; I35.0 Nonrheumatic aortic (valve) stenosis; Z95.4 Presence of other heart-valve replacement; E78.5 Hyperlipidemia, unspecified; M47.816 Spondylosis without myelopathy or radiculopathy, lumbar region; G89.29 Other chronic pain; M54.9 Dorsalgia, unspecified; Z79.899 Other long term (current) drug therapy
CPT/HCPCS: 80061; 85025; 83540; 36415; 84439; 84443; 80053; 82728; G0463

== ENCOUNTER 2023-03-28 00:58 | Inpatient (IN) | payer MEDICARE, OTHER ==
[~2023-03-28] VITALS: Ht 167.6 cm; Wt 71.7 kg
[~2023-03-28 00:58] MED LIST changes: +BENZ0.5T43 PO; +HALO5TAB8 MT
[2023-03-28] MEDS ORDERED: ACETAMINOPHEN 650 MG/SUPP.RECT RC ONE ×2 (01:30→01:40)
[2023-03-28 01:50] LABS: BASOPHILS % (AUTO) 0.5 % (0.0-2.0); EOSINOPHILS # (AUTO) 0.2 K/uL (0.0-0.7); HEMATOCRIT 32 % (33-45); HEMOGLOBIN 10.8 g/dL (11.5-14.8); LYMPHOCYTES # (AUTO) 1.1 K/uL (0.8-4.8); LYMPHOCYTES % (AUTO) 13.4 % (20.0-44.0); MEAN CORPUSCULAR HEMOGLOBIN 28 PG (26.0-33.0); MEAN CORPUSCULAR HGB CONC 34 g/dl (31.0-36.0); MEAN CORPUSCULAR VOLUME 83 fL (82-100); MONOCYTES # (AUTO) 0.9 K/uL (0.1-1.30); MONOCYTES % (AUTO) 10.7 % (2.0-12.0); NEUTROPHILS # (AUTO) 6.2 K/uL (1.8-8.9); NEUTROPHILS % (AUTO) 73.4 % (43.0-81.0); PLATELET COUNT (AUTO) 94 K/uL (150-450); RED BLOOD CELL COUNT(AUTO) 3.87 MIL/uL (4.0-5.2); RED CELL DISTRIBUTION WIDTH 15.2 % (11.5-15.0); WHITE BLOOD COUNT (AUTO) 8.5 K/uL (4.3-11.0)
[2023-03-28 01:53] LABS: APPEARANCE,URINE CLOUDY (CLEAR); BILIRUBIN,URINE NEGATIVE (NEGATIVE); BLOOD, URINE 2+ Ery/uL (NEGATIVE); COLOR,URINE YELLOW (YELLOW); KETONES,URINE NEGATIVE (NEGATIVE); LEUKOCYTE ESTERASE ,URINE 3+ (NEGATIVE); NITRITE, URINE POSITIVE (NEGATIVE); PROTEIN,URINE NEGATIVE (NEGATIVE); UGLUCOSE NEGATIVE (NEGATIVE); UROBILINOGEN,URINE 0.2 EU/dL (0.2)
[2023-03-28 01:57] LABS: ADD URINE CULTURE YES; BACTERIA,URINE Few /HPF (None Seen); SQUAMOUS EPITHELIAL CELL,UR Rare /HPF (None Seen)
[2023-03-28 02:05] LABS: INR 1.09 (0.91-1.10); PARTIAL THROMBOPLASTIN TIME 33.9 SEC (24.3-34.3); PROTHROMBIN TIME 11.4 SECS (9.2-11.1)
[2023-03-28 02:07] LABS: CALCIUM, SERUM 8.6 mg/dL (8.5-10.1); CARBON DIOXIDE 25 mmol/L (21-32); CHLORIDE 106 mmol/L (98-107); CREATININE 1.5 mg/dL (0.6-1.3); GLUCOSE 97 mg/dL (74-106); POTASSIUM 4.5 mmol/L (3.5-5.1); SODIUM SERUM 138 mmol/L (136-145); UREA NITROGEN, BLOOD 33 mg/dL (7-18)
[2023-03-28 02:12] LABS: LACTIC ACID 0.8 mmol/L (0.4-2.0)
[2023-03-28 02:19] LABS: ALANINE AMINOTRANSFERASE 16 U/L (12-78); ALBUMIN 3.2 g/dL (3.4-5.0); ALKALINE PHOSPHATASE 97 U/L (46-116); ASPARTATE AMINOTRANSFERASE 15 U/L (15-37); BILIRUBIN,DIRECT 0.1 mg/dL (0.0-0.2); BILIRUBIN,TOTAL 0.3 mg/dL (0.2-1.0); TOTAL PROTEIN, SERUM 7.3 g/dL (6.4-8.2)
[2023-03-28] MEDS ORDERED: CEFTRIAXONE 1GM BAG (ER ONLY) 1 GM/50 ML PIGGYBACK IV ONE (02:30)
[2023-03-28] MEDS ORDERED: CEFTRIAXONE 1GM BAG (ER ONLY) 50 ML IV ONE (02:33)
[2023-03-28] MEDS ORDERED: Z GUARD REMEDY 4 OZ OINT TP PRN (04:00)
[2023-03-28] MEDS ORDERED: ACETAMINOPHEN 650 MG/SUPP.RECT RC PRN (04:00)
[2023-03-28] MEDS ORDERED: ONDANSETRON HCL/PF 4 MG/2 ML VIAL IVP PRN (04:00)
[2023-03-28] MEDS ORDERED: LEVETIRACETAM (500MG) 500 MG in IV NS 0.9% 100 ML IV SCH ×2 (04:00→21:00)
[2023-03-28] MEDS ORDERED: ACETAMINOPHEN 325 MG TABLET PO PRN (04:00)
[2023-03-28] MEDS: IV NS 0.9% 1,000 ML IV PRN (04:40)
[2023-03-28 05:00] VITALS: BP 151/80; TEMP 99.4; O2SAT 100
[2023-03-28 05:06] VITALS: BP 151/80; TEMP 99.9; O2SAT 100
[2023-03-28] MEDS ORDERED: LEVETIRACETAM (500MG) 500 MG/5 ML VIAL IV ONE (05:31)
[2023-03-28 07:00] VITALS: BP 129/62; TEMP 100; O2SAT 100
[2023-03-28] MEDS ORDERED: OLAN5TAB3 PO (08:18)
[2023-03-28] MEDS ORDERED: TEMA7.5C12 PO (08:18)
[2023-03-28] MEDS ORDERED: ACET-868 PO (08:18)
[2023-03-28] MEDS ORDERED: MAG-151 PO (08:18)
[2023-03-28] MEDS ORDERED: MAGN400O6 PO (08:18)
[2023-03-28] MEDS ORDERED: PANTOPRAZOLE 40 MG VIAL IV SCH (09:00)
[2023-03-28 16:00] VITALS: BP 137/73; TEMP 99; O2SAT 99
[2023-03-28] MEDS ORDERED: TEMAZEPAM 7.5 MG CAPSULE PO PRN (18:00)
[2023-03-28] MEDS ORDERED: MAGNESIUM HYDROXIDE 30 ML UDC PO PRN (18:00)
[2023-03-28] MEDS ORDERED: MAG HYDROX/AL HYDROX/SIMETH 30 ML UDC PO PRN (18:00)
[2023-03-28 20:00] VITALS: BP 161/81; TEMP 100.4; O2SAT 100
[2023-03-28] MEDS: LEVETIRACETAM (250 MG) 250 MG TABLET PO SCH (21:50)
[2023-03-28] MEDS: CEFTRIAXONE 1 G in IV D5W 50 ML IV SCH (21:56)
[2023-03-28] MEDS ORDERED: OLANZAPINE 5 MG TABLET PO SCH (22:00)
[2023-03-29] VITALS (7 sets, daily range): BP systolic 130–185; BP diastolic 70–97; TEMP 98.3–100.4; O2SAT 99–100
[2023-03-29] MEDS: IV NS 0.9% 1,000 ML IV PRN (05:30)
[2023-03-29 05:56] LABS: BASOPHILS % (AUTO) 0.5 % (0.0-2.0); EOSINOPHILS # (AUTO) 0.2 K/uL (0.0-0.7); HEMATOCRIT 30 % (33-45); HEMOGLOBIN 10.1 g/dL (11.5-14.8); LYMPHOCYTES # (AUTO) 1.7 K/uL (0.8-4.8); LYMPHOCYTES % (AUTO) 30.9 % (20.0-44.0); MEAN CORPUSCULAR HEMOGLOBIN 28 PG (26.0-33.0); MEAN CORPUSCULAR HGB CONC 34 g/dl (31.0-36.0); MEAN CORPUSCULAR VOLUME 83 fL (82-100); MONOCYTES # (AUTO) 0.8 K/uL (0.1-1.30); MONOCYTES % (AUTO) 14.9 % (2.0-12.0); NEUTROPHILS # (AUTO) 2.7 K/uL (1.8-8.9); NEUTROPHILS % (AUTO) 50.7 % (43.0-81.0); PLATELET COUNT (AUTO) 84 K/uL (150-450); RED BLOOD CELL COUNT(AUTO) 3.63 MIL/uL (4.0-5.2); RED CELL DISTRIBUTION WIDTH 15.1 % (11.5-15.0); WHITE BLOOD COUNT (AUTO) 5.4 K/uL (4.3-11.0)
[2023-03-29 06:20] LABS: CALCIUM, SERUM 8.7 mg/dL (8.5-10.1); CREATININE 1.1 mg/dL (0.6-1.3); MAGNESIUM 1.8 mg/dL (1.8-2.4); PHOSPHORUS 3.8 mg/dL (2.5-4.9); POTASSIUM 4.4 mmol/L (3.5-5.1)
[2023-03-29 06:21] LABS: THYROID STIMULATING HORMONE 0.877 uIU/mL (0.358-3.74)
[2023-03-29] MEDS: BENZTROPINE MESYLATE (1 MG) 1 MG TABLET PO SCH (08:32)
[2023-03-29] MEDS: PANTOPRAZOLE 40 MG TABLET.DR PO SCH (08:32)
[2023-03-29] MEDS: LEVETIRACETAM (250 MG) 250 MG TABLET PO SCH ×2 (08:33→20:53)
[2023-03-29] MEDS ORDERED: HALOPERIDOL 5 MG TABLET PO SCH (11:00)
[2023-03-29 11:27] LABS: ANISOCYTOSIS 1+; BASOPHILS % (MANUAL) 0 % (0.0-2.0); EOSINOPHILS % (MANUAL) 3 % (0-4); LYMPHOCYTES % (MANUAL) 29 % (16-48); MONOCYTES % (MANUAL) 7 % (0-11.0); NEUTROPHILS % (MANUAL) 61 (42-76); PLATELET ESTIMATE DECREASED
[2023-03-29] MEDS: HALOPERIDOL 5 MG TABLET PO SCH (20:53)
[2023-03-29] MEDS: CEFTRIAXONE 1 G in IV D5W 50 ML IV SCH (20:54)
[2023-03-29] MEDS: hydrALAZINE HCL IV 20 MG VIAL IV PRN (21:00)
[2023-03-29] MEDS: ACETAMINOPHEN 325 MG TABLET PO PRN (21:00)
[2023-03-30] VITALS: BP 125/63; TEMP 98.2; O2SAT 99
[2023-03-30 04:00] VITALS: BP 146/81; TEMP 97.8; O2SAT 98
[2023-03-30 06:29] LABS: BASOPHILS % (AUTO) 0.8 % (0.0-2.0); EOSINOPHILS # (AUTO) 0.2 K/uL (0.0-0.7); EOSINOPHILS % (AUTO) 5.5 % (0.0-6.0); HEMATOCRIT 31 % (33-45); HEMOGLOBIN 10.4 g/dL (11.5-14.8); LYMPHOCYTES % (AUTO) 45.2 % (20.0-44.0); MEAN CORPUSCULAR HEMOGLOBIN 28 PG (26.0-33.0); MEAN CORPUSCULAR HGB CONC 34 g/dl (31.0-36.0); MEAN CORPUSCULAR VOLUME 83 fL (82-100); MONOCYTES # (AUTO) 0.6 K/uL (0.1-1.30); MONOCYTES % (AUTO) 14.9 % (2.0-12.0); NEUTROPHILS # (AUTO) 1.5 K/uL (1.8-8.9); NEUTROPHILS % (AUTO) 33.6 % (43.0-81.0); PLATELET COUNT (AUTO) 84 K/uL (150-450); RED BLOOD CELL COUNT(AUTO) 3.74 MIL/uL (4.0-5.2); RED CELL DISTRIBUTION WIDTH 14.7 % (11.5-15.0); WHITE BLOOD COUNT (AUTO) 4.3 K/uL (4.3-11.0)
[2023-03-30 06:48] LABS: CALCIUM, SERUM 8.3 mg/dL (8.5-10.1); CARBON DIOXIDE 27 mmol/L (21-32); CHLORIDE 104 mmol/L (98-107); CREATININE 1.1 mg/dL (0.6-1.3); GLUCOSE 88 mg/dL (74-106); MAGNESIUM 1.9 mg/dL (1.8-2.4); PHOSPHORUS 3.5 mg/dL (2.5-4.9); POTASSIUM 4.5 mmol/L (3.5-5.1); SODIUM SERUM 137 mmol/L (136-145); UREA NITROGEN, BLOOD 18 mg/dL (7-18)
[2023-03-30] MEDS: ACETAMINOPHEN 325 MG TABLET PO PRN (07:58)
[2023-03-30 08:00] VITALS: TEMP 97.9; O2SAT 99
[2023-03-30] MEDS: hydrALAZINE HCL IV 20 MG VIAL IV PRN (08:23)
[2023-03-30] MEDS: PANTOPRAZOLE 40 MG TABLET.DR PO SCH (08:27)
[2023-03-30] MEDS: HALOPERIDOL 5 MG TABLET PO SCH ×2 (08:27→21:43)
[2023-03-30] MEDS: BENZTROPINE MESYLATE (1 MG) 1 MG TABLET PO SCH (08:27)
[2023-03-30] MEDS: LEVETIRACETAM (250 MG) 250 MG TABLET PO SCH ×2 (08:27→21:43)
[2023-03-30 12:00] VITALS: BP 112/55; TEMP 98.1; O2SAT 98
[2023-03-30 12:06] LABS: PLATELET ESTIMATE DECREASED
[2023-03-30 12:07] LABS: ANISOCYTOSIS 1+; TEAR DROP CELLS OCC
[2023-03-30 16:00] VITALS: BP 138/69; TEMP 97.8; O2SAT 100
[2023-03-30 20:00] VITALS: BP 157/80; TEMP 98.4; O2SAT 99
[2023-03-30] MEDS: CEFTRIAXONE 1 G in IV D5W 50 ML IV SCH (21:43)
[2023-03-31] VITALS: BP 156/81; TEMP 98.8; O2SAT 95
[2023-03-31 04:00] VITALS: BP 175/79; TEMP 97.9; O2SAT 99
[2023-03-31] MEDS: hydrALAZINE HCL IV 20 MG VIAL IV PRN (04:15)
[2023-03-31 05:08] VITALS: BP 154/65
[2023-03-31 06:14] LABS: BASOPHILS % (AUTO) 0.4 % (0.0-2.0); EOSINOPHILS # (AUTO) 0.2 K/uL (0.0-0.7); HEMATOCRIT 33 % (33-45); HEMOGLOBIN 11.4 g/dL (11.5-14.8); LYMPHOCYTES # (AUTO) 2.2 K/uL (0.8-4.8); LYMPHOCYTES % (AUTO) 51.4 % (20.0-44.0); MEAN CORPUSCULAR HEMOGLOBIN 28 PG (26.0-33.0); MEAN CORPUSCULAR HGB CONC 34 g/dl (31.0-36.0); MEAN CORPUSCULAR VOLUME 82 fL (82-100); MONOCYTES # (AUTO) 0.5 K/uL (0.1-1.30); MONOCYTES % (AUTO) 11.7 % (2.0-12.0); NEUTROPHILS # (AUTO) 1.4 K/uL (1.8-8.9); NEUTROPHILS % (AUTO) 31.5 % (43.0-81.0); PLATELET COUNT (AUTO) 93 K/uL (150-450); RED BLOOD CELL COUNT(AUTO) 4.03 MIL/uL (4.0-5.2); RED CELL DISTRIBUTION WIDTH 14.9 % (11.5-15.0); WHITE BLOOD COUNT (AUTO) 4.3 K/uL (4.3-11.0)
[2023-03-31 06:31] LABS: CALCIUM, SERUM 8.7 mg/dL (8.5-10.1); CREATININE 0.9 mg/dL (0.6-1.3); PHOSPHORUS 3.3 mg/dL (2.5-4.9); POTASSIUM 4.5 mmol/L (3.5-5.1)
[2023-03-31] MEDS: PANTOPRAZOLE 40 MG TABLET.DR PO SCH (08:48)
[2023-03-31] MEDS: HALOPERIDOL 5 MG TABLET PO SCH (08:48)
[2023-03-31] MEDS: BENZTROPINE MESYLATE (1 MG) 1 MG TABLET PO SCH (08:48)
[2023-03-31] MEDS: LEVETIRACETAM (250 MG) 250 MG TABLET PO SCH (08:48)
[2023-03-31 12:12] LABS: ANISOCYTOSIS 1+; BASOPHILS % (MANUAL) 0 % (0.0-2.0); EOSINOPHILS % (MANUAL) 2 % (0-4); LYMPHOCYTES % (MANUAL) 47 % (16-48); MONOCYTES % (MANUAL) 11 % (0-11.0); NEUTROPHILS % (MANUAL) 40 (42-76); PLATELET ESTIMATE DECREASED
[2023-03-31] MEDS ORDERED: HALO5TAB8 PO (14:27)
== END 2023-03-31 18:23 | DRG 689 ==
LOC: ER 01:01 → TELE 03:43
PROVIDERS: ADMIT Student in an Organized Health Care Education/Training Program; ATTEND Student in an Organized Health Care Education/Training Program
DX: N39.0 Urinary tract infection, site not specified (principal); N17.0 Acute kidney failure with tubular necrosis; E44.0 Moderate protein-calorie malnutrition; F03.94 Unspecified dementia, unspecified severity, with anxiety; F03.92 Unspecified dementia, unspecified severity, with psychotic disturbance; E86.0 Dehydration; F03.90 Unspecified dementia, unspecified severity, without behavioral disturbance, psychotic disturbance, mood disturbance, and anxiety; I12.9 Hypertensive chronic kidney disease with stage 1 through stage 4 chronic kidney disease, or unspecified chronic kidney disease; N18.9 Chronic kidney disease, unspecified; G40.909 Epilepsy, unspecified, not intractable, without status epilepticus; D64.9 Anemia, unspecified; D69.6 Thrombocytopenia, unspecified; E88.9 Metabolic disorder, unspecified; F25.9 Schizoaffective disorder, unspecified; Z95.2 Presence of prosthetic heart valve; B96.20 Unspecified Escherichia coli [E. coli] as the cause of diseases classified elsewhere; I35.0 Nonrheumatic aortic (valve) stenosis; Z68.25 Body mass index [BMI] 25.0-25.9, adult; F29 Unspecified psychosis not due to a substance or known physiological condition; F41.9 Anxiety disorder, unspecified
CPT/HCPCS: 36415; 71045-TC; 80048-TC; 80076-TC; 81001; 83605-TC; 83735-TC; 84100-TC; 84443-TC; 84484-TC; 85025-TC; 85730-TC; 87040-TC; 87081-TC; 87086-TC; 92526; 92611-TC; 93307-TC; A4223; A6403; A6407; C9113; G0378; J0360; J0696; J1953; J7030; J7040; J7060

== ENCOUNTER 2024-07-02 07:47 | Emergency (ER) | payer MEDICARE, OTHER ==
[~2024-07-02] VITALS: Ht 165.1 cm; Wt 78.9 kg
[~2024-07-02 07:47] MED LIST changes: +ACET-868 PO; -HALO5TAB8 MT; +HALO5TAB8 PO; +MAG-151 PO; +MAGN400O6 PO; +OLAN5TAB3 PO; +TEMA7.5C12 PO
[2024-07-02 08:40] LABS: BASOPHILS # (AUTO) 0.1 K/uL (0.0-0.2); BASOPHILS % (AUTO) 0.6 % (0.0-2.0); EOSINOPHILS # (AUTO) 0.2 K/uL (0.0-0.7); EOSINOPHILS % (AUTO) 1.6 % (0.0-6.0); HEMATOCRIT 36 % (33-45); HEMOGLOBIN 12.1 g/dL (11.5-14.8); LYMPHOCYTES # (AUTO) 3.3 K/uL (0.8-4.8); LYMPHOCYTES % (AUTO) 27.4 % (20.0-44.0); MEAN CORPUSCULAR HEMOGLOBIN 29 PG (26.0-33.0); MEAN CORPUSCULAR HGB CONC 34 g/dl (31.0-36.0); MEAN CORPUSCULAR VOLUME 84 fL (82-100); MONOCYTES # (AUTO) 0.7 K/uL (0.1-1.30); MONOCYTES % (AUTO) 5.8 % (2.0-12.0); NEUTROPHILS # (AUTO) 7.7 K/uL (1.8-8.9); NEUTROPHILS % (AUTO) 64.6 % (43.0-81.0); PLATELET COUNT (AUTO) 131 K/uL (150-450); RED CELL DISTRIBUTION WIDTH 14.4 % (11.5-15.0)
[2024-07-02] MEDS: LEVETIRACETAM (500MG) 500 MG in IV NS 0.9% 100 ML IV SCH (08:48)
[2024-07-02 09:05] LABS: ALANINE AMINOTRANSFERASE 15 U/L (12-78); ALBUMIN 3.7 g/dL (3.4-5.0); ALKALINE PHOSPHATASE 114 U/L (46-116); ASPARTATE AMINOTRANSFERASE 23 U/L (15-37); BILIRUBIN,TOTAL 0.3 mg/dL (0.2-1.0); CARBON DIOXIDE 22 mmol/L (21-32); CHLORIDE 107 mmol/L (98-107); CREATININE 1.4 mg/dL (0.6-1.3); GLUCOSE 138 mg/dL (74-106); NT-PRO BNP 1371 pg/mL (0-125); POTASSIUM 5.3 mmol/L (3.5-5.1); SODIUM SERUM 141 mmol/L (136-145); TOTAL PROTEIN, SERUM 7.9 g/dL (6.4-8.2); UREA NITROGEN, BLOOD 25 mg/dL (7-18)
[2024-07-02 09:13] LABS: BILIRUBIN,DIRECT 0.1 mg/dL (0.0-0.2); CALCIUM, SERUM 8.8 mg/dL (8.5-10.1)
[2024-07-02] MEDS ORDERED: SODIUM POLYSTYRENE SULFONATE 15 G/60 ML BOTTLE ONE (11:06)
[2024-07-02] MEDS: SODIUM POLYSTYRENE SULFONATE 15 G/60 ML BOTTLE PO ONE (11:07)
[2024-07-02 13:13] VITALS: BP 149/70; O2SAT 95
== END 2024-07-02 13:16 | disposition home or self-care (01) ==
LOC: ER 08:02
DX: G40.909 Epilepsy, unspecified, not intractable, without status epilepticus (principal); F03.90 Unspecified dementia, unspecified severity, without behavioral disturbance, psychotic disturbance, mood disturbance, and anxiety; F25.9 Schizoaffective disorder, unspecified; I10 Essential (primary) hypertension; Z79.899 Other long term (current) drug therapy; Z87.440 Personal history of urinary (tract) infections
CPT/HCPCS: 99285; 96365; 70450; 71045; 93005; 85025; 80048; 80076; 36415; 84484; 83880; 82962; J7030 ×2; J1953

== ENCOUNTER 2025-04-15 10:41 | Outpatient (CLI) | payer MEDICARE, OTHER | END 2025-04-15 23:59 | disposition home or self-care (01) | LOC: WOU 10:41 | PROVIDERS: ATTEND Student in an Organized Health Care Education/Training Program | DX: B35.1 Tinea unguium (principal); L60.3 Nail dystrophy; M20.42 Other hammer toe(s) (acquired), left foot; M20.41 Other hammer toe(s) (acquired), right foot; I10 Essential (primary) hypertension; M79.672 Pain in left foot; M79.671 Pain in right foot | CPT/HCPCS: 11721; G0463 ==